=== PATIENT | female | born 1945 | race African-American/Black ===

== ENCOUNTER 2021-09-14 10:57 | Outpatient (REF) | payer MEDICARE, OTHER, SELFPAY ==
[2021-09-14 12:21] LABS: MANUAL DIFF FLAG NO
[2021-09-14 13:05] LABS: Basophils Percent Auto 0.8 % (0-2); Eosinophils Absolute Auto 0.2 X10*3/uL (0.0-0.4); Hematocrit 37.9 % (37.0-47.0); Hemoglobin 12.1 g/dl (12.0-16.0); Imm Gran Abs Auto 0.02 X10*3/uL (0.00-0.03); Imm Gran Pct Auto 0.4 % (0.0-0.4); Lymphocytes Absolute Auto 1.3 X10*3/uL (1.2-4.9); Lymphocytes Percent Auto 24.6 % (20-40); Mean Corpuscular HGB Conc 31.9 g/dl (31.0-35.0); Mean Platelet Volume 11.1 fL (9.4-12.3); Monocytes Absolute Auto 0.5 X10*3/uL (0.1-1.2); Monocytes Percent Auto 9.8 % (2-11); Neutrophils Absolute Auto 3.1 x10*3/uL (2.0-8.3); Neutrophils Percent Auto 61.4 % (45-73); Platelet Count 246 X10*3/uL (160-400); Red Blood Count 4.03 X10*6/uL (4.20-5.50); Red Cell Distribution Width 12.9 % (11.0-16.0); White Blood Count 5.1 X10*3/uL (4.8-10.8)
[2021-09-14 13:37] LABS: Alanine Aminotransferase 20 U/L (0-31); Aspartate Amino Transferase 25 U/L (5-31); Estimated Glomerular Filt Rate 27
[2021-09-14 13:56] LABS: Erythrocyte Sedimentation Rate 20 MM/HR (0-20)
== END 2021-09-14 10:58 | disposition home or self-care (01) ==
LOC: HO.LAB 10:57
PROVIDERS: Visit Provider Internal Medicine Rheumatology
DX: M19.011 Primary osteoarthritis, right shoulder (principal); M19.012 Primary osteoarthritis, left shoulder; M05.9 Rheumatoid arthritis with rheumatoid factor, unspecified; M47.816 Spondylosis without myelopathy or radiculopathy, lumbar region; Z79.899 Other long term (current) drug therapy; Z90.5 Acquired absence of kidney
CPT/HCPCS: 36415; 82565; 84450; 84460; 85025; 85652; 86140; 99212

== ENCOUNTER 2021-12-23 09:15 | Outpatient (REF) | payer MEDICARE, OTHER, SELFPAY ==
[2021-12-23 11:23] LABS: MANUAL DIFF FLAG NO
[2021-12-23 11:37] LABS: Basophils Percent Auto 0.6 % (0-2); Eosinophils Absolute Auto 0.2 X10*3/uL (0.0-0.4); Eosinophils Percent Auto 4.7 % (0-4); Hematocrit 36.5 % (37.0-47.0); Hemoglobin 11.5 g/dl (12.0-16.0); Imm Gran Abs Auto 0.01 X10*3/uL (0.00-0.03); Imm Gran Pct Auto 0.3 % (0.0-0.4); Lymphocytes Percent Auto 26.5 % (20-40); Mean Corpuscular HGB Conc 31.5 g/dl (31.0-35.0); Mean Corpuscular Hemoglobin 29.9 pg (27.0-33.0); Mean Corpuscular Volume 95.1 fL (80.0-98.0); Mean Platelet Volume 11.3 fL (9.4-12.3); Monocytes Absolute Auto 0.3 X10*3/uL (0.1-1.2); Monocytes Percent Auto 8.8 % (2-11); Neutrophils Absolute Auto 2.1 x10*3/uL (2.0-8.3); Neutrophils Percent Auto 59.1 % (45-73); Platelet Count 218 X10*3/uL (160-400); Red Blood Count 3.84 X10*6/uL (4.20-5.50); Red Cell Distribution Width 13.4 % (11.0-16.0); White Blood Count 3.6 X10*3/uL (4.8-10.8)
[2021-12-23 12:44] LABS: Erythrocyte Sedimentation Rate 25 MM/HR (0-20)
[2021-12-23 14:01] LABS: Alanine Aminotransferase 23 U/L (0-31); Aspartate Amino Transferase 25 U/L (5-31); Estimated Glomerular Filt Rate 26
[2021-12-23 14:32] LABS: C Reactive Protein 0.08 mg/dL (< or = 0.50)
== END 2021-12-23 09:16 | disposition home or self-care (01) ==
LOC: HO.HMGCLDS 09:15
PROVIDERS: Visit Provider Internal Medicine Rheumatology
DX: M05.9 Rheumatoid arthritis with rheumatoid factor, unspecified (principal); Z79.899 Other long term (current) drug therapy
CPT/HCPCS: 36415; 82565; 84450; 84460; 85025; 85652; 86140

== ENCOUNTER → 2022-01-14 10:01 | Outpatient (BNVA) | payer MEDICARE, OTHER, SELFPAY | PROVIDERS: Visit Provider Internal Medicine Rheumatology | DX: M05.9 Rheumatoid arthritis with rheumatoid factor, unspecified (principal); M19.011 Primary osteoarthritis, right shoulder; M19.012 Primary osteoarthritis, left shoulder; Z79.899 Other long term (current) drug therapy | CPT/HCPCS: 99212 ==

== ENCOUNTER → 2022-05-26 10:14 | Outpatient (BNVA) | payer MEDICARE, OTHER, SELFPAY | PROVIDERS: Visit Provider Internal Medicine Rheumatology | DX: M19.011 Primary osteoarthritis, right shoulder (principal); M19.012 Primary osteoarthritis, left shoulder; M47.816 Spondylosis without myelopathy or radiculopathy, lumbar region; M05.9 Rheumatoid arthritis with rheumatoid factor, unspecified; N18.30 Chronic kidney disease, stage 3 unspecified; Z79.899 Other long term (current) drug therapy | CPT/HCPCS: 99212 ==

== ENCOUNTER → 2022-06-14 08:53 | Outpatient (BNVA) | payer MEDICARE, OTHER, SELFPAY | PROVIDERS: Visit Provider Orthopaedic Surgery | DX: M19.011 Primary osteoarthritis, right shoulder (principal); M19.012 Primary osteoarthritis, left shoulder; M54.12 Radiculopathy, cervical region; M05.9 Rheumatoid arthritis with rheumatoid factor, unspecified; N18.30 Chronic kidney disease, stage 3 unspecified; Z79.631 Long term (current) use of antimetabolite agent | CPT/HCPCS: 99202 ==

== ENCOUNTER 2022-06-18 07:08 | Outpatient (REF) | payer MEDICARE, OTHER, SELFPAY ==
--- NOTE | ~2022-06-18 | CT_ITS ---
EXAMINATION: CT SHOULDER WITHOUT CONTRAST, RIGHT CLINICAL INFORMATION: Osteoarthritis, presurgical planning COMPARISON: None available. TECHNIQUE: A noncontrast CT of the right shoulder is performed with sagittal and coronal reformats This CT examination was performed using dose optimization techniques as appropriate, variously including the following: *Automated exposure control *Adjustment of mA and/or kV according to patient size (this includes techniques or standardized protocols for targeted exams where dose is matched to indication/reason for exam; i.e. extremities or head) *Use of iterative reconstruction technique DLP: 227 mGy-cm FINDINGS: Severe glenohumeral osteoarthritis with areas of sclerosis, degenerative cysts, and large marginal osteophytes. There is a chronic ossified body in the superior aspect of the joint. The humeral head is superiorly subluxed and nearly abuts the undersurface of the acromion suggesting at least partial tearing of the supraspinatus tendon. There is mild supraspinatus muscle atrophy. There is remodeling and flattening of the glenoid. Glenoid version is neutral. The glenoid vault depth is approximately [address]/CT shoulder RT wo IV con IMPRESSION: Severe glenohumeral osteoarthritis.
== END 2022-06-18 07:09 | disposition home or self-care (01) ==
LOC: HO.CT 07:08
PROVIDERS: Visit Provider Orthopaedic Surgery
DX: M19.011 Primary osteoarthritis, right shoulder (principal)
CPT/HCPCS: 73200

== ENCOUNTER 2022-07-07 12:35 | Outpatient (REF) | payer MEDICARE, OTHER, SELFPAY ==
--- NOTE | ~2022-07-07 | MR_ITS ---
EXAMINATION: MR SHOULDER WITHOUT CONTRAST, RIGHT CLINICAL INFORMATION: Right shoulder pain. Presurgical planning. COMPARISON: CT 06/18/2022 TECHNIQUE: MRI of the shoulder without contrast was performed on a high-field scanner. FINDINGS: ROTATOR CUFF: Chronic near complete tearing of the distal supraspinatus and infraspinatus tendons which are markedly attenuated. Mild rotator cuff muscle atrophy. BICEPS: The intra-articular portion of the biceps tendon is not visualized and presumably completely torn. CORACOACROMIAL ARCH: The undersurface of the acromion is anteriorly hooked with no subacromial spur. Moderate hypertrophic acromioclavicular osteoarthritis. LABRUM/CAPSULE: Diffuse degenerative tearing of the glenoid labrum which is essentially absent. GLENOHUMERAL JOINT/MARROW: Severe glenohumeral osteoarthritis with denudation of the articular cartilage, surface remodeling, multiple small cysts and prominent marginal osteophytes. There is a joint effusion with synovitis/debris. MR/MR shoulder RT wo con IMPRESSION: Severe glenohumeral osteoarthritis. Chronic near complete tearing of the supraspinatus and infraspinatus tendons. Mild muscle atrophy. Moderate hypertrophic acromioclavicular osteoarthritis. Completely torn proximal biceps tendon.
== END 2022-07-07 12:36 | disposition home or self-care (01) ==
LOC: HO.MRI 12:35
PROVIDERS: Visit Provider Orthopaedic Surgery
DX: M19.011 Primary osteoarthritis, right shoulder (principal)
CPT/HCPCS: 73221

== ENCOUNTER → 2022-07-12 10:40 | Outpatient (BNVA) | payer MEDICARE, OTHER, SELFPAY | PROVIDERS: Visit Provider Nurse Practitioner Family | DX: M47.812 Spondylosis without myelopathy or radiculopathy, cervical region (principal); M54.12 Radiculopathy, cervical region; M54.6 Pain in thoracic spine; M19.011 Primary osteoarthritis, right shoulder; M19.012 Primary osteoarthritis, left shoulder; M05.9 Rheumatoid arthritis with rheumatoid factor, unspecified; M25.511 Pain in right shoulder; G89.29 Other chronic pain | CPT/HCPCS: 72052; 72072; 99202 ==

== ENCOUNTER 2022-07-12 11:44 | Outpatient (REF) | payer MEDICARE, OTHER, SELFPAY ==
--- NOTE | ~2022-07-12 | XR_ITS ---
EXAMINATION: XR CERVICAL SPINE CLINICAL INFORMATION: Spondylosis COMPARISON: None available. TECHNIQUE: 5 views of the cervical spine including bilateral oblique views views, were obtained. FINDINGS: Bone alignment is normal. No fracture or dislocation. Multilevel degenerative spondylosis and degenerative disc disease from C4-C5 to C6-C7. Mild right-sided neuroforaminal narrowing at C6-C7 from bony osteophyte. Left-sided neuroforaminal narrowing at C3-C4 C4-C5 C5-C6 and C6-C7 from bony osteophyte. Normal prevertebral soft tissues. XR/XR cervical spine min 6V IMPRESSION: Degenerative changes
--- NOTE | ~2022-07-12 | XR_ITS ---
EXAMINATION: XR THORACIC SPINE CLINICAL INFORMATION: Pain COMPARISON: None available. TECHNIQUE: 3 views of the thoracic spine were obtained. FINDINGS: There is no fracture or bone destruction seen and the vertebral alignment is normal. There is no disc space narrowing. There is no abnormality of the paraspinal soft tissues. XR/XR thoracic spine 3V IMPRESSION: Unremarkable examination.
== END 2022-07-12 11:45 | disposition home or self-care (01) ==
LOC: HO.XRAY 11:44
PROVIDERS: Visit Provider Nurse Practitioner Family
DX: Z13.89 Encounter for screening for other disorder (principal)
CPT/HCPCS: 72052; 72072

== ENCOUNTER → 2022-08-16 09:08 | Outpatient (BNVA) | payer MEDICARE, OTHER, SELFPAY | PROVIDERS: Visit Provider Orthopaedic Surgery | DX: M47.22 Other spondylosis with radiculopathy, cervical region (principal); M54.6 Pain in thoracic spine; G89.29 Other chronic pain; M25.511 Pain in right shoulder; G56.00 Carpal tunnel syndrome, unspecified upper limb; R20.0 Anesthesia of skin; R20.2 Paresthesia of skin; M05.9 Rheumatoid arthritis with rheumatoid factor, unspecified; M12.811 Other specific arthropathies, not elsewhere classified, right shoulder; N18.30 Chronic kidney disease, stage 3 unspecified; Z79.899 Other long term (current) drug therapy | CPT/HCPCS: 99212 ==

== ENCOUNTER → 2022-09-20 09:28 | Outpatient (BNVA) | payer MEDICARE, OTHER, SELFPAY | PROVIDERS: Visit Provider Internal Medicine Rheumatology | DX: M05.9 Rheumatoid arthritis with rheumatoid factor, unspecified (principal); M19.011 Primary osteoarthritis, right shoulder; M19.012 Primary osteoarthritis, left shoulder; N18.30 Chronic kidney disease, stage 3 unspecified; Z79.899 Other long term (current) drug therapy | CPT/HCPCS: 99212 ==

== ENCOUNTER 2022-09-30 09:53 | Outpatient (REF) | payer MEDICARE, OTHER, SELFPAY ==
--- NOTE | 2022-09-30 09:56 | EMG_ITS ---
FINDINGS: Right median and ulnar motor and sensory studies were performed. Right radial sensory studies were performed. Median and lateral antecubital brachial sensory studies were performed and paraspinal muscles were tested with a needle. IMPRESSION: Mild right median neuropathy across carpal tunnel affecting sensory component. Otherwise, no significant abnormality was noted. MD VITOR Pinon/ATILIO / [id number]
== END 2022-09-30 09:54 | disposition home or self-care (01) ==
LOC: HO.NEURO 09:53
PROVIDERS: Visit Provider Nurse Practitioner Family
DX: R20.0 Anesthesia of skin (principal); R20.2 Paresthesia of skin; M54.12 Radiculopathy, cervical region
CPT/HCPCS: 95886; 95910

== ENCOUNTER 2022-11-24 09:21 | Outpatient (REF) | payer MEDICARE, OTHER, SELFPAY ==
--- NOTE | ~2022-11-24 | MR_ITS ---
EXAMINATION: MR CERVICAL SPINE WITHOUT CONTRAST CLINICAL INFORMATION: Neck pain with right upper extremity radiculopathy. COMPARISON: X-ray cervical spine dated 07/12/2022. TECHNIQUE: Multiplanar, multisequential imaging of the cervical spine was performed without contrast. FINDINGS: VERTEBRAL BODIES AND PARASPINAL SOFT TISSUES: There are isph-hs-vnsihpal edematous endplate changes with moderate disc space narrowing at the C7-T1 level. No compression fractures are seen. There is a reversal of the normal cervical lordosis and rightward curvature of the mid cervical spine. Severe loss of disc height with mixed chronic and mild edematous endplate changes evident at the C4-C5 level. There is wrndlxff-de-lnyjll disc space narrowing as well at the C5-C6 and C6-C7 levels with mild posterior subluxations. The paraspinal soft tissues are unremarkable. The vertebral artery flow voids are maintained. The imaged lung apices are grossly clear. There are fatty and nodular changes partially visualized in the parotid glands bilaterally. CERVICOMEDULLARY JUNCTION AND VISUALIZED POSTERIOR FOSSA: The craniovertebral junction and imaged portions of the brain appear normal. No cord signal abnormality or syrinx is seen. SPINAL LEVELS: C2-C3: Small central disc protrusion. No central canal stenosis or foraminal narrowing. C3-C4: Central disc protrusion impresses upon the ventral cord without intramedullary signal change. No central canal stenosis. Exuberant left-sided facet arthropathy and moderate left foraminal narrowing. C4-C5: Right paracentral disc protrusion superimposed upon a broad-based disc-osteophyte complex with facet arthropathy results in sosl-js-jtyzbrde central canal stenosis and mild ventral cord distortion. Severe left foraminal narrowing. C5-C6: Left paracentral disc protrusion moderately distorts the left ventrolateral aspect of the cord without intramedullary signal change. Underlying disc-osteophyte complex present with significant left foraminal encroachment. C6-C7: Retrosubluxation and disc-osteophyte complex impress upon the ventral thecal sac. No significant central canal stenosis. Severe left foraminal narrowing and lwbm-yo-smkoehdh right foraminal encroachment. C7-T1: Central disc protrusion and disc-osteophyte complex with thickening of the ligamentum flavum and facet arthropathy result in moderate central canal stenosis and severe bilateral foraminal narrowing with suspected impingement of both C8 nerve roots. MR/MR cervical spine wo con IMPRESSION: 1. Extensive multilevel cervical spondylosis and reversal of the normal cervical lordosis with moderate central canal stenosis and severe left foraminal narrowing at the C4-C5 level. 2. Central disc protrusion at the C3-C4 level with mild impression upon the ventral cord. Moderate left foraminal narrowing and exuberant left-sided facet arthropathy. 3. Left paracentral disc protrusion moderately distorting the left ventrolateral aspect of the cord at the C5-C6 level with severe left foraminal narrowing. 4. Severe left foraminal narrowing at the C6-C7 level with a broad-based disc-osteophyte complex. 5. Central disc protrusion at the C7-T1 level with hypertrophic facet arthropathy resulting in moderate central canal stenosis and severe bilateral foraminal narrowing with suspected impingement of both C8 nerve roots. Mild endplate edema as well.
== END 2022-11-24 09:22 | disposition home or self-care (01) ==
LOC: HO.MRI 09:21
PROVIDERS: Visit Provider Nurse Practitioner Family
DX: G89.29 Other chronic pain (principal); M47.812 Spondylosis without myelopathy or radiculopathy, cervical region; M54.12 Radiculopathy, cervical region; M25.511 Pain in right shoulder
CPT/HCPCS: 72141

== ENCOUNTER 2023-01-10 13:21 | Outpatient (AMB) | payer MEDICARE, OTHER, SELFPAY ==
[2023-01-10 13:22] VITALS: BMI 28.0
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
== END 2023-01-10 13:35 | disposition home or self-care (01) ==
LOC: HO.PMC 13:21
PROVIDERS: Visit Provider Nurse Practitioner Family
DX: G56.00 Carpal tunnel syndrome, unspecified upper limb (principal); R20.0 Anesthesia of skin; R20.2 Paresthesia of skin; M48.02 Spinal stenosis, cervical region; M47.812 Spondylosis without myelopathy or radiculopathy, cervical region; M54.12 Radiculopathy, cervical region
CPT/HCPCS: 99442

== ENCOUNTER → 2023-01-10 13:21 | Outpatient (BNVA) | payer MEDICARE, OTHER, SELFPAY | PROVIDERS: Visit Provider Nurse Practitioner Family ==

== ENCOUNTER 2023-01-19 10:52 | Outpatient (AMB) | payer MEDICARE, OTHER, SELFPAY ==
--- NOTE | 2023-01-19 10:58 | A.OFFVIS_ITS ---
Intake Vital Signs 01/19/23 11:08 Height 5 ft 3 in Weight 156 lb 8.451 oz BMI 27.7 BP 130/70 Blood Pressure Location Lt brachial Position Sitting Pulse 73 Pulse Source Pulse Oximeter Temp 97.3 F Temp Source Skin Pulse Oximetry (%) 99 Oxygen Delivery Method Room Air Intake Visit Reasons: Rheumatoid Arthritis Intake Note: Patient presents today for RA follow up. c/o right hand numbness. States she has been diagnosed with CTS. Cervical CT scan completed. Will be seeing specialist for the neck to consider minimally invasive surgery. 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 She remains on methotrexate 7.5 mg weekly and folic acid 1 mg daily. In general the joints are doing okay but she does have chronic pain in the right shoulder, occasional pain in the neck, and numbness in the right hand. Further workup has included MRI scan of the neck and nerve conduction studies. The nerve conduction studies did show some mild right carpal tunnel syndrome. Further evaluation of her neck problem is apparently planned. She notes more paresthesias in the hand night. The right shoulder, a chronic problem, continues to bother her with any movement. She did see surgery about this but she apparently has rather severe rotator cuff attrition and the surgeon felt that surgery would not be all that effective at improving her function. She has concerns about her kidney function which of course declined after nephrectomy. 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 Osteoarthritis of glenohumeral joints, bilateral CKD (chronic kidney disease) stage 3, GFR 30-59 ml/min Hypertension Osteoarthritis of lumbar spine Seropositive rheumatoid arthritis Surgical History History of nephrectomy, right Social History Household Members Other:: lives alone Housing: House Are you a primary caretaker grounds to a significant other at home: No Do you presently have visiting nurse or other home services: No 75 years or older and lives alone: No Alcohol intake: current Alcohol intake frequency: a few times a week Alcohol type: wine Patient Tobacco Use Status: Never used Tobacco e-Cigarette/Vaping Use: Never Used Current occupational status: retired Review of Systems Const Details: Negative for appetite change, weight change, fever, chills, malaise and fatigue Eyes Details: Some ocular dryness. Negative for vision change,headaches and dizziness ENT Details: Occasional oral dryness. Negative for hearing change, tinnitus, oral ulcer, nose bleeds. Card Details: Negative chest pain, edema and syncope Resp Details: Negative for SOB, cough and wheezing GI Details: Negative indigestion/heartburn, nausea, abdominal pain, bowel changes, diarrhea, constipation and bloody stool. Details: Negative for dysuria, hematuria, nocturia, decreased force/flow and genital discharge Neuro Details: Negative for epilepsy, palsy, stroke, changes in speech, tingling and weakness Endo Details: Negative for polyuria and polydypsia Rigo/Lymph Details: Negative for excessive bruising or bleeding. Physical Exam Vital Signs: Last Vital Signs Temp 97.3 F 01/19/23 11:08 Pulse 73 01/19/23 11:08 BP 130/70 01/19/23 11:08 Pulse Ox 99 01/19/23 11:08 Oxygen Delivery Method Room Air 01/19/23 11:08 BMI result Body Mass Index 27.7 APPEARANCE: Patient in no acute distress EYES no redness, pupils equal and reactive to light, eyelids normal Cervical Spine:.? Lateral flexion limited at 10 degrees and rotation at 50 degrees with slight discomfort.? No tenderness. Thoracic Spine:.? No scoliosis.? No tenderness on palpation. Lumbar Spine:.? Alignment normal.? Full range of motion without pain, no tenderness. Chest Wall:.? No tenderness, swelling, increased warmth or erythema. Hands:? Right:? Slight thickening at the 2nd and 3rd MCP joints but no tenderness.? No other areas of tenderness or swelling.? No thenar atrophy or sensory loss.? Left:? Slight thickening without tenderness at the 2nd through 4th MCP joints.? No other swelling or tenderness elsewhere.? No thenar atrophy or sensory loss. Wrists:.? Normal pain-free range of motion without tenderness, swelling, increased warmth or erythema. Elbows:? Right:? She lacks about 10 degrees of full extension with slight discomfort at the extremes of motion but no swelling or tenderness in the elbow.? Left:? Normal pain-free range of motion without tenderness, swelling, increased warmth or erythema. Shoulders:? Right:? Active abduction is limited at about 80? degrees, passively I can push it up to about 120 degrees but with mild pain.? There is abductor weakness.? Rotation is also limited to about 10 degrees internally or externally.? No axillary or supraclavicular adenopathy; no soft tissue swelling.? Some deltoid atrophy.? Left:? She has mild discomfort with extremes of normal range of motion. There is some minimal anterior tenderness but no swelling or abductor weakness.? No axillary or supraclavicular adenopathy.? Hips:.? Full range of motion without pain. Hip bursa:.? No tenderness. Knees:.?? Normal pain-free range of motion without tenderness, swelling, increased warmth or erythema.? There is no effusion or crepitation Ankles:.? Left:? Some valgus deformity and pain with extremes of range of motion.? Mild medial tenderness, more prominent on the medial side without significant swelling, redness or warmth.? Right:? pain-free range of motion without tenderness, swelling, increased warmth or erythema. Feet:? Right:? She has a callus underneath the IP joint of the toe on the medial aspect.? This is somewhat tender so there may be a corn present as well.? There is some minimal tenderness at the 1st MTP but I do not think any swelling.? She has a soft tissue lump near the 1st MTP on the sole of foot, this is not tender. Left:? Normal pain-free range of motion with some slight tenderness at the 1st MTP and maybe some minimal bony enlargement.? No other areas of tenderness or swelling. ? Results Reviewed Results Reviewed: January 12 lab work from [facility]: White count 3.4, hemoglobin 11.1, ESR 24, creatinine 1.97, CRP 0.7, ALT 20, AST 22 Assessment & Plan Assessment & Plan (1) Osteoarthritis of glenohumeral joints, bilateral: Comment: R>L, history of old injury on the right Code(s): M19.011 - Primary osteoarthritis, right shoulder; M19.012 - Primary osteoarthritis, left shoulder (2) Carpal tunnel syndrome: Code(s): G56.00 - Carpal tunnel syndrome, unspecified upper limb (3) Cervical spinal stenosis: Code(s): M48.02 - Spinal stenosis, cervical region (4) Seropositive rheumatoid arthritis: Comment: Dx from the past (in her 30's); varying activity, mostly low grade, no DMARD's ever. Neg GAMA but pos CCP Ab and RF Methotrexate started 03/21 Code(s): M05.9 - Rheumatoid arthritis with rheumatoid factor, unspecified Plan Rheumatoid arthritis with good control of synovitis with current treatment. She has significant CKD so we have reduced the dose of methotrexate to 7.5 mg weekly. The white count is somewhat low but stable. I think she could continue with the current dose of methotrexate. She has end-stage glenohumeral osteoarthritis in the right shoulder. The pain in the shoulder is not always as prominent as currently but I would tend to agree that surgery may improve the pain but not necessarily her functioning given the significant rotator cuff damage noted on MRI. The right hand numbness could be from carpal tunnel syndrome but I think it is more likely from cervical issues. I did issue her a right wrist brace to wear nightly to see if that might ameliorate carpal tunnel symptoms. She will follow-up with pain management if need be on the further management of the cervical osteoarthritis. Lab work would be due again in 2 months and she will be away in [place] in April and May so will see us back in June. Orders: Orders Complete Blood Count Auto Diff Today M05.9 - Rheumatoid arthritis with rheumatoid factor, unspecified C Reactive Protein Today M05.9 - Rheumatoid arthritis with rheumatoid factor, unspecified Erythrocyte Sedimentation Rate 1 Month M05.9 - Rheumatoid arthritis with rheumatoid factor, unspecified Erythrocyte Sedimentation Rate Today M05.9 - Rheumatoid arthritis with rheumatoid factor, unspecified C Reactive Protein 1 Month M05.9 - Rheumatoid arthritis with rheumatoid factor, unspecified Comprehensive Met. Panel Today M05.9 - Rheumatoid arthritis with rheumatoid factor, unspecified Medications: New arm brace (Wrist Brace) Use as directed at night 1 ea 0RF G56.00 - Carpal tunnel syndrome, unspecified upper limb Coding Level of Care Code Est Pt Level 3 (27012) Diagnoses Osteoarthritis of glenohumeral joints, bilateral M19.011; M19.012 Carpal tunnel syndrome G56.00 Cervical spinal stenosis M48.02 Seropositive rheumatoid arthritis M05.9
[2023-01-19 11:08] VITALS: BP 130/70; PULSE 73; TEMP 36.3; O2SAT 99; BMI 27.7
== END 2023-01-19 11:44 | disposition home or self-care (01) ==
PROVIDERS: Visit Provider Internal Medicine Rheumatology
DX: M19.011 Primary osteoarthritis, right shoulder (principal); M19.012 Primary osteoarthritis, left shoulder; G56.00 Carpal tunnel syndrome, unspecified upper limb; M48.02 Spinal stenosis, cervical region; M05.79 Rheumatoid arthritis with rheumatoid factor of multiple sites without organ or systems involvement
CPT/HCPCS: 99214

== ENCOUNTER → 2023-01-19 10:52 | Outpatient (BNVA) | payer MEDICARE, OTHER, SELFPAY | PROVIDERS: Visit Provider Internal Medicine Rheumatology | DX: M05.9 Rheumatoid arthritis with rheumatoid factor, unspecified (principal); G56.01 Carpal tunnel syndrome, right upper limb; M19.012 Primary osteoarthritis, left shoulder; M19.011 Primary osteoarthritis, right shoulder; M48.02 Spinal stenosis, cervical region; Z79.631 Long term (current) use of antimetabolite agent | CPT/HCPCS: 99212 ==

== ENCOUNTER 2023-02-09 12:49 | Outpatient (AMB) | payer MEDICARE, OTHER, SELFPAY ==
--- NOTE | 2023-02-09 12:59 | A.OFFVIS_ITS ---
Intake Intake Visit Reasons: new prob- Carpal tunnel syndrome right Intake Note: Minna is a 77 year old right hand domiant female who presents today with complaints of right hand pain, numbness and tingling. Patient reports that her sympmtoms have been present for quite some times now. Her numbness is presenet in the small and ring finger, she also reports locking and catching of the thumb. She explains that she has RTC problems and has been wearing a sling occasionally. Allergies erythromycin base Allergy (Intermediate, Verified 01/19/23 11:09) Hives hydrocodone Allergy (Intermediate, Verified 01/19/23 11:09) shaky, rapid heart beat oxycodone Allergy (Intermediate, Verified 01/19/23 11:09) shaky,rapid heartbeat piroxicam [From Feldene] Allergy (Intermediate, Verified 01/19/23 11:09) Shortness of Breath Sulfa (Sulfonamide Antibiotics) Allergy (Intermediate, Verified 01/19/23 11:09) hives HPI new prob- Carpal tunnel syndrome right HPI Details 77-year-old right hand dominant female damari bravo presents to the office today for evaluation of right hand. She states she has pain as well as numbness and tingling in her small and ring finger. She also c/o catching and locking of her thumb. 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 Osteoarthritis of glenohumeral joints, bilateral CKD (chronic kidney disease) stage 3, GFR 30-59 ml/min Hypertension Osteoarthritis of lumbar spine Seropositive rheumatoid arthritis Surgical History History of nephrectomy, right Social History Household Members Other:: lives alone Housing: House Are you a primary wound care coordinator to a significant other at home: No Do you presently have visiting nurse or other home services: No 75 years or older and lives alone: No Alcohol intake: current Alcohol intake frequency: a few times a week Alcohol type: wine Patient Tobacco Use Status: Never used Tobacco e-Cigarette/Vaping Use: Never Used Current occupational status: retired Review of Systems Const All systems reviewed & are unremarkable except as noted in HPI and below Physical Exam Const General: cooperative and no acute distress Orientation/consciousness: patient oriented x3 Resp Effort & Inspection: normal respiratory effort and able to speak in complete sentences Cardio Peripheral pulses: Peripheral pulses 2+ throughout Neuro General: patient oriented x3 Extrem Other: Right wrist: Normal to inspection. Tenderness over the carpal canal. Numbness and tingling over the median nerve distribution of the right hand. Able to make a full fist and fully extend all fingers. Positive Tinel's. Right thumb : Tender nodule along the A1 meme with active catching and locking. NVI. Results Reviewed Results Reviewed: EMG/NCS 09/2022 IMPRESSION: Mild right median neuropathy across carpal tunnel affecting sensory component. Otherwise, no significant abnormality was noted. Assessment & Plan Assessment & Plan (1) Carpal tunnel syndrome of right wrist: Code(s): G56.01 - Carpal tunnel syndrome, right upper limb (2) Trigger thumb, right thumb: Code(s): M65.311 - Trigger thumb, right thumb Plan We discussed findings on her nerve conduction study however she does not feel it is limiting her daily activities and her symptoms are not to a point where she wants to pursue any type of surgical intervention. I did offer her a Velcro wrist splint for her right hand which she would like to use. If symptoms become constant or are limiting her activities, she will contact the office otherwise follow-up as needed. Patient Instructions: Scribed for Chico Cruz PA-C, by Josh Thompson director of medical education, on 02/09/2023 at 1:15 PM EST. Chico Hall PA-C, have personally reviewed and agree with the information entered by the scribe. Coding Level of Care Code New Pt Level 3 (62131) Diagnoses Carpal tunnel syndrome of right wrist G56.01 Trigger thumb, right thumb M65.311
== END 2023-02-09 13:34 | disposition home or self-care (01) ==
PROVIDERS: Visit Provider Physician Assistant
DX: G56.01 Carpal tunnel syndrome, right upper limb (principal); M65.311 Trigger thumb, right thumb
CPT/HCPCS: 99213

== ENCOUNTER → 2023-02-09 12:49 | Outpatient (BNVA) | payer MEDICARE, OTHER, SELFPAY | PROVIDERS: Visit Provider Physician Assistant | DX: G56.01 Carpal tunnel syndrome, right upper limb (principal); M65.311 Trigger thumb, right thumb | CPT/HCPCS: 99212 ==

== ENCOUNTER 2023-02-11 09:43 | Outpatient (AMB) | payer MEDICARE, OTHER, SELFPAY ==
--- NOTE | 2023-02-11 10:20 | A.SPINEOV_ITS ---
Intake Intake Visit Reasons: radiculopathy Intake Note: Ms. Clifford is here today c/o low back pain. MRI done @ [facility] [place]. Postal Mail Carrier Required: No Allergies erythromycin base Allergy (Intermediate, Verified 01/19/23 11:09) Hives hydrocodone Allergy (Intermediate, Verified 01/19/23 11:09) shaky, rapid heart beat oxycodone Allergy (Intermediate, Verified 01/19/23 11:09) shaky,rapid heartbeat piroxicam [From Feldene] Allergy (Intermediate, Verified 01/19/23 11:09) Shortness of Breath Sulfa (Sulfonamide Antibiotics) Allergy (Intermediate, Verified 01/19/23 11:09) hives Assessment & Plan Assessment & Plan (1) Cervical myelopathy: Code(s): G95.9 - Disease of spinal cord, unspecified Plan Dear Alison, Thank you for referring Mrs Clifford to our office today. She is a very nice 77-year-old woman with rheumatoid arthritis who presents to the office today for evaluation of her cervical spine. She tells me that about a year ago she had a severe radiculopathy down the right arm that was so intense that she was unable to sleep or do anything. Thankfully it went away but she has had a residual feeling of numbness and tingling down her right arm which can go into her 4th and 5th digits at times. Occasionally she will get a little bit of tingling in her left index finger on the left. She has a proximal arm weakness which is related to a shoulder injury and rotator cuff tears but does not report any specific weakness of her arms or gait imbalance. She does have some subtle fine motor issues when she is using her cellphone. Occasionally has some neck pain and will take Tylenol if needed. She had an EMG done she was told she does not have any significant signs of carpal tunnel. She had an MRI showing multiple degenerative disc abnormalities in her cervical spine with cervical stenosis and was sent today for evaluation. At this time she does not have any significant pain issues to her report. PMH: She had a history of kidney cancer and nephrectomy, her residual function of her 1 remaining kidney she says is about 30%, history of rheumatoid arthritis, hypertension, recently diagnosed with high cholesterol, hysterectomy, appendectomy, remote history of vertebral artery stenosis with possible small TIA related to extension of her neck. She has been on Plavix for this for a long time. Denies any heart attacks, or heart disease. No lung problems. Social hx: She does not smoke Medications: Methotrexate, Plavix, diclofenac gel, Tylenol, baby aspirin, vitamin D3, amlodipine, atorvastatin, folic acid Allergies: Azithromycin, Dilaudid, erythromycin, Feldene, sulfa, lactose, hydrocodone, oxycodone and certain metals Physical exam: She is awake alert oriented here with her sister today. She has good strength of bilateral upper and lower extremities. I could not test the right shoulder because she has a chronic rotator cuff tear there. Lower extremi ty strength is full. Gait is normal and fluid with normal gait and stride length. She has diffuse hyperreflexia with clonus in her ankles. Imaging review: Cervical MRI done at [facility] shows diffuse degenerative disc disease, at C4-5 on the right there is a disc bulge causing moderate central canal stenosis. On the left at C5-6 there is a posterior disc herniation causing moderate to severe spinal cord compression on the left. I do not see any cord signal change there. She has mild degenerative disc disease at C6-7 and has bilateral foraminal stenosis at C7-T1 Impression: Very nice 77-year-old woman with history of rheumatoid arthritis presents with what sounds like subtle signs of early myelopathy including some fine motor issues when using her phone, numbness of her right arm and hyperreflexia on her exam. We talked about the fact that myelopathic patients are often best treated before their symptoms become severe. Typically that would mean surgery to decompress the affected areas. Usually this would be anterior cervical diskectomy and fusion. The patient has fairly significant compression at C5-6 but also moderate stenosis at C4-5. I will need to review her imaging with Dr. Alas to see if he would thinks both of these would be surgical or just the C5-6 level. At this point she is not having a significant functional disability so there is no urgency to sun her into his surgery. I briefly discussed the nature of the surgery, progressive cervical myelopathic symptoms to be worried about should she develop them. I will bring her back in 1 month to sit down with Dr. Alas and he can evaluate with her as well. Thank you for allowing us to care for your patient. The total time spent with this visit with this patient was 45 minutes reviewing history, physical exam, cervical imaging review, and implementation of treatment plan or further diagnostic testing Thanh Alas MD,PhD [facility] Coding Level of Care Code New Pt Level 4 (06866) Diagnoses Cervical myelopathy G95.9
== END 2023-02-11 11:00 | disposition home or self-care (01) ==
PROVIDERS: Referring Provider Nurse Practitioner Family; Visit Provider Physician Assistant
DX: G95.9 Disease of spinal cord, unspecified (principal)
CPT/HCPCS: 99204

== ENCOUNTER → 2023-02-11 09:43 | Outpatient (BNVA) | payer MEDICARE, OTHER, SELFPAY | PROVIDERS: Visit Provider Physician Assistant | DX: G95.9 Disease of spinal cord, unspecified (principal) | CPT/HCPCS: 99202 ==

== ENCOUNTER 2023-03-15 13:25 | Outpatient (AMB) | payer MEDICARE, OTHER, SELFPAY ==
--- NOTE | 2023-03-15 13:54 | A.SPINEOV_ITS ---
Intake Intake Visit Reasons: meet Dr. Alas Intake Note: Ms. Clifford is here today to discuss surgical options with Dr. Alas. 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 Allergies erythromycin base Allergy (Intermediate, Verified 01/19/23 11:09) Hives hydrocodone Allergy (Intermediate, Verified 01/19/23 11:09) shaky, rapid heart beat oxycodone Allergy (Intermediate, Verified 01/19/23 11:09) shaky,rapid heartbeat piroxicam [From Feldene] Allergy (Intermediate, Verified 01/19/23 11:09) Shortness of Breath Sulfa (Sulfonamide Antibiotics) Allergy (Intermediate, Verified 01/19/23 11:09) hives Assessment & Plan Assessment & Plan (1) Cervical spondylosis: Code(s): M47.812 - Spondylosis without myelopathy or radiculopathy, cervical region Plan Dear colleague, On 03/15/2023, I saw for follow-up Minna Clifford. She is a very pleasant 77-year-old female I came to see us after spinal cord compression was seen on MRI of the cervical spine. She denies dexterity loss, weakness, balance problems or incontinence. She does have a strange radiating feeling in her right arm and numbness of her left index finger for many years. She denies dropping objects. On exam, I do not find any signs of cervical myelopathy. The MRI of the cervical spine does show spinal spinal cord compression predominantly at C5-C6 compressing the left side of the spinal cord. No myelomalacia. We decided to hold off on any surgical intervention. I would like to follow-up with her in a few months to reassess her neurologically. She will contact my office if any symptoms occur. I spent 30 minutes in his consult to review imaging and discussing plan of care. Erik Alas MD, PhD Spine Fellowship Trained Neurosurgeon Director, [facility] Coding Level of Care Code Est Pt Level 4 (89449) Diagnoses Cervical spondylosis M47.812
== END 2023-03-15 15:02 | disposition home or self-care (01) ==
PROVIDERS: Visit Provider Neurological Surgery
DX: M47.812 Spondylosis without myelopathy or radiculopathy, cervical region (principal)
CPT/HCPCS: 99214

== ENCOUNTER → 2023-03-15 13:25 | Outpatient (BNVA) | payer MEDICARE, OTHER, SELFPAY | PROVIDERS: Visit Provider Neurological Surgery | DX: M47.812 Spondylosis without myelopathy or radiculopathy, cervical region (principal) | CPT/HCPCS: 99212 ==

== ENCOUNTER 2023-03-29 14:24 | Outpatient (REF) | payer MEDICARE, OTHER, SELFPAY ==
[2023-03-29 16:09] LABS: MANUAL DIFF FLAG NO
[2023-03-29 16:17] LABS: Basophils Percent Auto 0.4 % (0-2); Eosinophils Absolute Auto 0.1 X10*3/uL (0.0-0.4); Eosinophils Percent Auto 2.4 % (0-4); Hematocrit 37.1 % (37.0-47.0); Hemoglobin 11.8 g/dl (12.0-16.0); Imm Gran Abs Auto 0.01 X10*3/uL (0.00-0.03); Imm Gran Pct Auto 0.2 % (0.0-0.4); Lymphocytes Absolute Auto 1.2 X10*3/uL (1.2-4.9); Lymphocytes Percent Auto 26.3 % (20-40); Mean Corpuscular HGB Conc 31.8 g/dl (31.0-35.0); Mean Corpuscular Hemoglobin 30.2 pg (27.0-33.0); Mean Corpuscular Volume 94.9 fL (80.0-98.0); Mean Platelet Volume 10.9 fL (9.4-12.3); Monocytes Absolute Auto 0.4 X10*3/uL (0.1-1.2); Monocytes Percent Auto 8.6 % (2-11); Neutrophils Absolute Auto 2.8 x10*3/uL (2.0-8.3); Neutrophils Percent Auto 62.1 % (45-73); Platelet Count 214 X10*3/uL (160-400); Red Blood Count 3.91 X10*6/uL (4.20-5.50); Red Cell Distribution Width 13.4 % (11.0-16.0); White Blood Count 4.5 X10*3/uL (4.8-10.8)
[2023-03-29 16:26] LABS: Alanine Aminotransferase 13 U/L (0-31); Albumin Level 4.2 g/dL (3.5-5.0); Alkaline Phosphatase 54 U/L (39-117); Anion Gap 12 (12-20); Aspartate Amino Transferase 20 U/L (5-31); Bilirubin Total 0.6 mg/dL (0.0-1.0); Blood Urea Nitrogen 26 mg/dL (9-16); C Reactive Protein 0.11 mg/dL (< or = 0.50); Calcium 9.9 mg/dL (8.4-10.2); Carbon Dioxide 26 mmol/L (22-29); Chloride 108 mmol/L (96-108); Estimated Glomerular Filt Rate 29; Glucose Random 78 mg/dL (60-115); Potassium 4.1 mmol/L (3.3-5.1); Sodium 142 mmol/L (135-145); Total Protein 7.5 g/dL (6.5-8.0)
[2023-03-29 17:00] LABS: Erythrocyte Sedimentation Rate 14 MM/HR (0-20)
== END 2023-03-29 14:25 | disposition home or self-care (01) ==
LOC: HO.HMGCLDS 14:24
PROVIDERS: PCP Internal Medicine; Visit Provider Internal Medicine Rheumatology
DX: M05.9 Rheumatoid arthritis with rheumatoid factor, unspecified (principal)
CPT/HCPCS: 36415; 80053; 85025; 85652; 86140

== ENCOUNTER 2023-07-22 10:45 | Outpatient (AMB) | payer MEDICARE, OTHER, SELFPAY ==
--- NOTE | 2023-07-22 10:48 | A.OFFVIS_ITS ---
Vital Signs 07/22/23 10:56 Height 5 ft 3 in Weight 145 lb 1.027 oz BMI 25.7 BP 124/62 Blood Pressure Location Rt brachial Position Sitting Pulse 78 Pulse Source Pulse Oximeter Pulse Oximetry (%) 98 Oxygen Delivery Method Room Air Intake Visit Reasons: RA Intake Note: Patient last seen 01/19/[address] Nixon, presents today for follow up and test results. Reports worsening right arm pain. Psychological Aide Required: No Accompanied by: Self / Same As Patient Allergies erythromycin base Allergy (Intermediate, Verified 07/27/23 13:31) Hives hydrocodone Allergy (Intermediate, Verified 07/27/23 13:31) shaky, rapid heart beat oxycodone Allergy (Intermediate, Verified 07/27/23 13:31) shaky,rapid heartbeat piroxicam [From Feldene] Allergy (Intermediate, Verified 07/27/23 13:31) Shortness of Breath Sulfa (Sulfonamide Antibiotics) Allergy (Intermediate, Verified 07/27/23 13:31) hives HPI Comments Details: Ms. Clifford 77 yoF returns for follow-up of her rheumatoid arthritis. She remains on methotrexate 7.5 mg weekly and folic acid 1 mg daily. In general the joints are doing okay but she does have chronic pain in the right shoulder, occasional pain in the neck, and numbness in the right hand. She is following with neuro for this. following with Nephrology - Missing Right Kidney - Next appt september 2023. 01/19/2023 Dr. Nixon: Patient returns for evaluation of her rheumatoid arthritis. She remains on met hotrexate 7.5 mg weekly and folic acid 1 mg daily. In general the joints are doing okay but she does have chronic pain in the right shoulder, occasional pain in the neck, and numbness in the right hand. Further workup has included MRI scan of the neck and nerve conduction studies. The nerve conduction studies did show some mild right carpal tunnel syndrome. Further evaluation of her neck problem is apparently planned. She notes more paresthesias in the hand night. The right shoulder, a chronic problem, continues to bother her with any movement. She did see surgery about this but she apparently has rather severe rotator cuff attrition and the surgeon felt that surgery would not be all that effective at improving her function. She has concerns about her kidney function which of course declined after nephrectomy. 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 Osteoarthritis of glenohumeral joints, bilateral CKD (chronic kidney disease) stage 3, GFR 30-59 ml/min Hypertension Osteoarthritis of lumbar spine Seropositive rheumatoid arthritis Surgical History History of nephrectomy, right Social History Household Members Other:: lives alone Housing: House Are you a primary manager primary care to a significant other at home: No Do you presently have visiting nurse or other home services: No 75 years or older and lives alone: No Alcohol intake: current Alcohol intake frequency: a few times a week Alcohol type: wine Patient Tobacco Use Status: Never used Tobacco e-Cigarette/Vaping Use: Never Used Current occupational status: retired Review of Systems Const All systems reviewed & are unremarkable except as noted in HPI and below Physical Exam Vital Signs: Last Vital Signs Pulse 78 07/22/23 10:56 BP 124/62 07/22/23 10:56 Pulse Ox 98 07/22/23 10:56 Oxygen Delivery Method Room Air 07/22/23 10:56 BMI result Body Mass Index 25.7 APPEARANCE: Patient in no acute distress EYES no redness, eyelids normal HEART:? Regular rhythm, S1-S2 heard, no murmurs, rubs or gallops. LUNG:? Clear to auscultation Cervical Spine:.? Lateral flexion limited at 10 degrees and rotation at 50 degrees with slight discomfort.? No tenderness. Thoracic Spine:.? No scoliosis.? No tenderness on palpation. Lumbar Spine:.? Alignment normal.? Full range of motion without pain, no tenderness. Chest Wall:.? No tenderness, swelling, increased warmth or erythema. Hands:? Right:? Slight thickening at the 2nd and 3rd MCP joints but no tenderness.? No other areas of tenderness or swelling.? No thenar atrophy or sensory loss.? Left:? Slight thickening without tenderness at the 2nd through 4th MCP joints.? No other swelling or tenderness elsewhere.? No thenar atrophy or sensory loss. Wrists:.? Normal pain-free range of motion without tenderness, swelling, increased warmth or erythema. Elbows:? Right:? She lacks about 10 degrees of full extension with slight discomfort at the extremes of motion but no swelling or tenderness in the elbow.? Left:? Normal pain-free range of motion without tenderness, swelling, increased warmth or erythema. Shoulders:? Right:? Active abduction is limited at about 80? degrees, passively I can push it up to about 120 degrees but with mild pain.? There is abductor weakness.? Rotation is also limited to about 10 degrees internally or externally.? No axillary or supraclavicular adenopathy; no soft tissue swelling.? Some deltoid atrophy.? Left:? She has mild discomfort with extremes of normal range of motion. There is some minimal anterior tenderness but no swelling or abductor weakness.? No axillary or supraclavicular adenopathy.? Hips:.? Full range of motion without pain. Hip bursa:.? No tenderness. Knees:.?? Normal pain-free range of motion without tenderness, swelling, increased warmth or erythema.? There is no effusion or crepitation Ankles:.? Left:? Some valgus deformity and pain with extremes of range of motion.? Mild medial tenderness, more prominent on the medial side without significant swelling, redness or warmth.? Right:? pain-free range of motion without tenderness, swelling, increased warmth or erythema. Feet:? Right:? She has a callus underneath the IP joint of the toe on the medial aspect.? This is somewhat tender so there may be a corn present as well.? There is some minimal tenderness at the 1st MTP but I do not think any swelling.? She has a soft tissue lump near the 1st MTP on the sole of foot, this is not tender. Left:? Normal pain-free range of motion with some slight tenderness at the 1st MTP and maybe some minimal bony enlargement.? No other areas of tenderness or swelling. ? Results Reviewed Results Reviewed: Laboratory Tests 03/29/23 14:50 WBC 4.5 L RBC 3.91 L Hgb 11.8 L Hct 37.1 ESR 14 Creatinine 1.70 H AST 20 ALT 13 C-Reactive Protein 0.11 Total Protein 7.5 Albumin 4.2 Assessment & Plan Assessment & Plan (1) Osteoarthritis of glenohumeral joints, bilateral: Comment: R>L, history of old injury on the right Code(s): M19.011 - Primary osteoarthritis, right shoulder; M19.012 - Primary osteoarthritis, left shoulder Category: Medical (2) Carpal tunnel syndrome: Code(s): G56.00 - Carpal tunnel syndrome, unspecified upper limb Category: Medical Qualifiers: Laterality: right Qualified Code(s): G56.01 - Carpal tunnel syndrome, right upper limb (3) Cervical spinal stenosis: Code(s): M48.02 - Spinal stenosis, cervical region Category: Medical (4) Seropositive rheumatoid arthritis: Comment: Dx from the past (in her 30's); varying activity, mostly low grade, no DMARD's ever. Neg GAMA but pos CCP Ab and RF Methotrexate started 03/21 Code(s): M05.9 - Rheumatoid arthritis with rheumatoid factor, unspecified Category: Medical (5) CKD (chronic kidney disease) stage 3, GFR 30-59 ml/min: Comment: due to HBP and right nephrectomy for cancer Code(s): N18.30 - Chronic kidney disease, stage 3 unspecified Category: Medical Qualifiers: Chronic kidney disease stage 3 subtype: stage 3b (GFR 30-44) Qualified Code(s): N18.32 - Chronic kidney disease, stage 3b Plan #Rheumatoid arthritis with good control of synovitis with current treatment of methotrexate 7.5 mg weekly, folic acid 1 mg per day.. #CKD: Ms. Buitrago has 1 kidney which has significant CKD so she remain on a reduced dose of methotrexate to 7.5 mg weekly. The white count is somewhat low but stable. She will continue to follow with Nephrology at her upcoming visit in September #Right shoulder OA/Cervical OA: She has end-stage glenohumeral osteoarthritis in the right shoulder. The pain in the shoulder is not always as prominent as currently but I would tend to agree that surgery may improve the pain but not necessarily her functioning given the significant rotator cuff damage noted on MRI. She will follow-up with pain management if need be on the further management of the cervical osteoarthritis. #Right CTS: The right hand numbness could be from carpal tunnel syndrome but may also be from from cervical issues. She continues to use the right wrist brace nightly as it does ameliorate carpal tunnel symptoms. #Long-term use: We will continue to monitor CBC, CMP, and ESR CRP, her labs are within normal range to continue methotrexate. Labs are due again in 6 months before next visit. 40 minutes spent reviewing history, evaluating patient and documenting Orders: Orders C Reactive Protein 6 Months M05.9 - Rheumatoid arthritis with rheumatoid factor, unspecified Aspartate Amino Transferase 6 Months Z79.899 - Other terminal operations supervisor (current) drug therapy, M05.9 - Rheumatoid arthritis with rheumatoid factor, unspecified Creatinine 6 Months Z79.899 - [facility] [place] [facility] drug therapy, M05.9 - Rheumatoid arthritis with rheumatoid factor, unspecified Complete Blood Count Auto Diff 6 Months Z79.899 - Other terminal operations supervisor (current) drug therapy, M05.9 - Rheumatoid arthritis with rheumatoid factor, unspecified Erythrocyte Sedimentation Rate 6 Months M05.9 - Rheumatoid arthritis with rheumatoid factor, unspecified Alanine Aminotransferase 6 Months Z79.899 - Other [place] [facility] (current) drug therapy, M05.9 - Rheumatoid arthritis with rheumatoid factor, unspecified Medications: Refilled methotrexate sodium 7.5 mg (3 x 2.5 mg) PO QWEEK 48 tabs 1RF M05.9 - Rheumatoid arthritis with rheumatoid factor, unspecified Coding Level of Care Code Est Pt Level 4 (06470) Diagnoses Osteoarthritis of glenohumeral joints, bilateral M19.011; M19.012 Carpal tunnel syndrome of right wrist G56.01 Laterality: right Cervical spinal stenosis M48.02 Seropositive rheumatoid arthritis M05.9 Stage 3b chronic kidney disease N18.32 Chronic kidney disease stage 3 subtype: stage 3b (GFR 30-44)
[2023-07-22 10:56] VITALS: BP 124/62; PULSE 78; O2SAT 98; BMI 25.7
== END 2023-07-22 11:39 | disposition home or self-care (01) ==
PROVIDERS: PCP Internal Medicine; Visit Provider Nurse Practitioner Family
DX: M05.79 Rheumatoid arthritis with rheumatoid factor of multiple sites without organ or systems involvement (principal); M19.011 Primary osteoarthritis, right shoulder; M19.012 Primary osteoarthritis, left shoulder; G56.01 Carpal tunnel syndrome, right upper limb; M48.02 Spinal stenosis, cervical region; N18.32 Chronic kidney disease, stage 3b
CPT/HCPCS: 99214

== ENCOUNTER → 2023-07-22 10:45 | Outpatient (BNVA) | payer MEDICARE, OTHER, SELFPAY | PROVIDERS: Visit Provider Nurse Practitioner Family | DX: M19.011 Primary osteoarthritis, right shoulder (principal); M19.012 Primary osteoarthritis, left shoulder; M48.02 Spinal stenosis, cervical region; M05.9 Rheumatoid arthritis with rheumatoid factor, unspecified; N18.32 Chronic kidney disease, stage 3b; G56.01 Carpal tunnel syndrome, right upper limb | CPT/HCPCS: 99212 ==

== ENCOUNTER 2023-07-27 13:11 | Outpatient (AMB) | payer MEDICARE, OTHER, SELFPAY ==
--- NOTE | 2023-07-27 13:18 | A.SPINEOV_ITS ---
Intake Intake Visit Reasons: 4 month follow up Intake Note: Ms. Clifford is here today for a 4 month F/u. Claims Service Representative Required: No Allergies erythromycin base Allergy (Intermediate, Verified 07/27/23 13:31) Hives hydrocodone Allergy (Intermediate, Verified 07/27/23 13:31) shaky, rapid heart beat oxycodone Allergy (Intermediate, Verified 07/27/23 13:31) shaky,rapid heartbeat piroxicam [From Feldene] Allergy (Intermediate, Verified 07/27/23 13:31) Shortness of Breath Sulfa (Sulfonamide Antibiotics) Allergy (Intermediate, Verified 07/27/23 13:31) hives Assessment & Plan Assessment & Plan (1) Numbness and tingling of right hand: Code(s): R20.0 - Anesthesia of skin; R20.2 - Paresthesia of skin (2) Cervical spinal cord compression: Code(s): G95.20 - Unspecified cord compression Plan Dear colleague, On 07/27/2023, I saw for follow-up Minna Clifford. She was diagnosed with radiological spinal cord compression at C5-C6 without signs of cervical myelopathy. She comes in for reassessment. She states that she just returned from [place] traveling 3 months without any difficulties. She did develop tingling in the 4th and 5th digits on the right side, which is bothering her. She had an EMG done in the past which was normal. We reviewed her MRI of the cervical spine in detail again with shows spinal cord compression at C5-C6 without myelomalacia but there is also a right C8 foraminal narrowing compressing the C8 nerve root. I explained to the patient that the tingling in the 4th and 5th digit could be related to the C8 nerve root or coming from ulnar nerve compression. We decided to wait and see. The patient will call my office if the symptoms are not improving. We will then order an EMG and a repeat MRI of the cervical spine. Finally, at the end of the office visit, the patient wanted to know what a surgery would entail. I described an anterior diskectomy and fusion, which would be done in day surgery. I spent 25 minutes in his consult to review imaging and discussing plan of care. Thank you for allowing me take care of your patient. Erik Alas MD, PhD Spine Fellowship Trained Neurosurgeon Director, [facility] Coding Level of Care Code Est Pt Level 3 (73122) Diagnoses Numbness and tingling of right hand R20.0; R20.2 Cervical spinal cord compression G95.20
== END 2023-07-27 14:38 | disposition home or self-care (01) ==
PROVIDERS: Visit Provider Neurological Surgery
DX: R20.0 Anesthesia of skin (principal); R20.2 Paresthesia of skin; G95.20 Unspecified cord compression
CPT/HCPCS: 99213

== ENCOUNTER → 2023-07-27 13:11 | Outpatient (BNVA) | payer MEDICARE, OTHER, SELFPAY | PROVIDERS: Visit Provider Neurological Surgery | DX: R20.0 Anesthesia of skin (principal); R20.2 Paresthesia of skin; G95.20 Unspecified cord compression | CPT/HCPCS: 99212 ==

== ENCOUNTER 2023-08-30 08:15 | Outpatient (REF) | payer MEDICARE, OTHER, SELFPAY ==
--- NOTE | 2023-08-30 08:24 | EMG_ITS ---
Right median and ulnar motor and sensory studies were performed. Right and medial and lateral antecubital brachial and radial sensory studies were performed and needle examination was performed. IMPRESSION: This is an unremarkable study with no evidence of median or ulnar neuropathy, plexopathy, or radiculopathy. MD VITOR Pinon/LOGANL / [id number]
== END 2023-08-30 08:16 | disposition home or self-care (01) ==
LOC: HO.NEURO 08:15
PROVIDERS: PCP Internal Medicine; Visit Provider Physician Assistant
DX: R20.0 Anesthesia of skin (principal); R20.2 Paresthesia of skin
CPT/HCPCS: 95886; 95910

== ENCOUNTER 2023-09-15 18:00 | Outpatient (REF) | payer MEDICARE, OTHER, SELFPAY ==
--- NOTE | ~2023-09-15 | MR_ITS ---
EXAMINATION: MR CERVICAL SPINE WITHOUT CONTRAST CLINICAL INFORMATION: Paresthesias of the skin. COMPARISON: MR cervical spine 11/24/2022. TECHNIQUE: MRI of the cervical spine was obtained using routine sequences without contrast. FINDINGS: There is slight retrolisthesis of C6 on C7. Alignment is otherwise normal in the sagittal dimension. Vertebral body heights are preserved. There are type I degenerative endplate changes at C7-T1. Mixed degenerative endplate changes at C4-C5. There is loss of intervertebral disc height and T2 signal intensity at multiple levels related to disc degeneration. The cervicomedullary junction is normal. Limited visualization of the posterior fossa reveals no abnormal finding. Occipital condyles and lateral C1 masses are intact. The atlantodental joint and both C1-C2 articular facets are unremarkable. At C2-C3 there is a slightly bulging disc. No canal stenosis. No neuroforaminal encroachment. At C3-C4 there is a central protrusion superimposed upon a bulging disc causing indentation of the thecal sac and abutment along the ventral surface of the cervical spinal cord. Mild canal stenosis. There is asymmetric degenerative arthrosis of the left facet joint causing mild left neuroforaminal encroachment. At C4-C5 there is a shallow right central protrusion superimposed upon a bulging disc causing indentation of the ventral thecal sac and subtle flattening along the right ventral surface of the cervical cord. Moderate canal stenosis. No clear evidence of abnormal intramedullary signal changes. Uncovertebral joint spurring and facet degenerative change causes severe left and mild right neuroforaminal encroachment. At C5-C6 there is a focal left central protrusion causing indentation of the thecal sac and flattening of the left ventral surface of the cervical cord. Moderate canal stenosis with possible compression along the left lateral aspect of the cervical spinal cord. Questionable intramedullary signal changes. Uncovertebral joint spurring and facet degenerative change causes moderate left neuroforaminal encroachment. At C6-C7 there is a bulging disc. Mild canal stenosis. Uncovertebral joint spurring and facet degenerative change causes severe left and mild right neuroforaminal encroachment. At C7-T1 there is a bulging disc and buckling of the ligamenta flava. Moderate canal stenosis. Uncovertebral joint spurring and facet degenerative change causes severe bilateral neuroforaminal encroachment. Visualized soft tissues of the neck are normal. Vascular flow voids are maintained. MR/MR cervical spine wo con IMPRESSION: There is multilevel degenerative spondylosis of the cervical spine. Moderate canal stenosis at C4-C5, C5-C6, and C7-T1. There is possible compression along left lateral aspect of the cervical spinal cord level of C5-C6 where there are questionable intramedullary signal changes that may represent a manifestation of myelomalacia. Otherwise no abnormal intramedullary signal changes are visualized elsewhere within the cervical cord. Mild canal stenosis at C3-C4 and C6-C7. There are varying degrees of neuroforaminal encroachment related to uncovertebral joint spurring and facet degenerative change as described above.
== END 2023-09-15 18:01 | disposition home or self-care (01) ==
LOC: HO.MRI 18:00
PROVIDERS: PCP Internal Medicine; Visit Provider Physician Assistant
DX: R20.0 Anesthesia of skin (principal); R20.2 Paresthesia of skin
CPT/HCPCS: 72141

== ENCOUNTER 2023-09-30 11:11 | Outpatient (AMB) | payer MEDICARE, OTHER, SELFPAY ==
--- NOTE | 2023-09-30 11:17 | HO.SPINEOV ---
Intake Visit Reasons: F/u on MRI Intake Note: Ms. Clifford is here today for a F/u on MRI. Warehouse Packaging Supervisor Required: No Allergies erythromycin base Allergy (Intermediate, Verified 07/27/23 13:31) Hives hydrocodone Allergy (Intermediate, Verified 07/27/23 13:31) shaky, rapid heart beat oxycodone Allergy (Intermediate, Verified 07/27/23 13:31) shaky,rapid heartbeat piroxicam [From Feldene] Allergy (Intermediate, Verified 07/27/23 13:31) Shortness of Breath Sulfa (Sulfonamide Antibiotics) Allergy (Intermediate, Verified 07/27/23 13:31) hives Assessment & Plan Assessment & Plan (1) Cervical spinal cord compression: Code(s): G95.20 - Unspecified cord compression Category: Medical Plan Mrs Clifford is here in follow-up. She underwent an EMG which did not reveal any cervical radiculopathy. She underwent a cervical MRI at [place], there is no official report back yet on the MRI but I sat down with her to review it. She still continues to have severe feelings radiculopathy down the right arm into the 4th and 5th digits where there is tingling/buzzing sensation. It does affect her quality of life. Sleeping can be difficult, she has to be in a recliner. She can not do many of the activities around her house in her yd that make her life meaningful an enjoyable. She does not have any myelopathic symptoms to report. I examined her again, and her strength is full but she does have clonus in both ankles and a Yoko sign on the left hand. This tells me that she is having some signs of spinal cord irritation from her stenosis, but has not gotten symptomatic yet. Her MRI shows that the C3-4 level looks to be slightly worse in terms of the central stenosis and there is some posterior displacement of the spinal cord but no cord signal change. The C5-6 osteophyte/disc complex on the left which is causing spinal cord compression looks similar. She also has the bilateral C7-T1 foraminal narrowing causing compression of the C8 nerve roots. I think this is where her symptoms are coming from down the right arm. I will review the MRI with Dr. Alas and review her symptom presentation. We had previously discussed the possibility of a C5-6 ACDF given her hyperreflexia and spinal cord compression, but now that she has having a radicular symptom which I suspect is coming from a different area, the question becomes should we pursue that 1st. Once I have a chance to look at everything with him I will call her back. We did discuss the surgery again, she understands she will need to be off her Plavix for 10 days, her aspirin for 7 days and her methotrexate for 14 days before surgery. She was concerned that having her head positioned in the operating room may exacerbate some of her vertigo as it did during her MRI and I told her this is certainly a possibility. Total amount of time spent in this visit was 20 minutes in discussion of symptoms, cervical MRI at [place] imaging results and subsequent plan of care Thanh Alas MD,PhD [facility] Coding Level of Care Code Est Pt Level 3 (37379) Diagnoses Cervical spinal cord compression G95.20
== END 2023-09-30 12:12 | disposition home or self-care (01) ==
PROVIDERS: PCP Internal Medicine; Visit Provider Physician Assistant
DX: G95.20 Unspecified cord compression (principal)
CPT/HCPCS: 99213

== ENCOUNTER → 2023-09-30 11:11 | Outpatient (BNVA) | payer MEDICARE, OTHER, SELFPAY | PROVIDERS: PCP Internal Medicine; Visit Provider Physician Assistant | DX: G95.20 Unspecified cord compression (principal); Z79.82 Long term (current) use of aspirin; Z79.01 Long term (current) use of anticoagulants | CPT/HCPCS: 99212 ==

== ENCOUNTER 2023-12-02 13:20 | Outpatient (AMB) | payer MEDICARE, OTHER, SELFPAY ==
--- NOTE | 2023-12-02 13:25 | A.SPINEOV_ITS ---
Intake Visit Reasons: Discuss Surgery Intake Note: Ms. Clifford is here today to discuss surgery. On Air Personality Required: No Allergies azithromycin Allergy (Intermediate, Verified 11/25/23 10:23) Hives erythromycin base Allergy (Intermediate, Verified 07/27/23 13:31) Hives hydrocodone Allergy (Intermediate, Verified 07/27/23 13:31) shaky, rapid heart beat hydromorphone [From Dilaudid] Allergy (Intermediate, Verified 11/25/23 10:23) Nausea and Vomiting lactose Allergy (Intermediate, Verified 11/25/23 10:23) Gastrointestinal Upset nickel Allergy (Intermediate, Verified 11/25/23 10:36) contact rash oxycodone Allergy (Intermediate, Verified 07/27/23 13:31) shaky,rapid heartbeat piroxicam [From Feldene] Allergy (Intermediate, Verified 07/27/23 13:31) Shortness of Breath Sulfa (Sulfonamide Antibiotics) Allergy (Intermediate, Verified 07/27/23 13:31) hives Assessment & Plan Assessment & Plan (1) Cervical spinal cord compression: Code(s): G95.20 - Unspecified cord compression Category: Medical Plan Dear colleague, On 12/02/2023 I saw for preoperative visit Minna Clifford. She scheduled to undergo an anterior diskectomy and fusion C5-C6 for severe spinal cord compression next week. She already discontinued the Plavix. She will also discontinue her baby aspirin. She can restart her Plavix 5 days postoperatively. I did tell her to ask her primary care physician if the Plavix is still required as there was a clear mechanical cause for her stroke in the past. She may only need a baby aspirin. I answered all her questions about the surgery and expected postoperative course. She mentioned she is allergic to oxycodone and therefore we will prescribe tramadol postoperatively. I spent 30 minutes in his consult for above reasons. Erik Alas MD, PhD Spine Fellowship Trained Neurosurgeon Director, [facility] Coding Level of Care Code Est Pt Level 4 (35706) Diagnoses Cervical spinal cord compression G95.20
== END 2023-12-02 13:56 | disposition home or self-care (01) ==
PROVIDERS: PCP Internal Medicine; Visit Provider Neurological Surgery
DX: G95.20 Unspecified cord compression (principal)
CPT/HCPCS: 99214

== ENCOUNTER → 2023-12-02 13:20 | Outpatient (BNVA) | payer MEDICARE, OTHER, SELFPAY | PROVIDERS: PCP Internal Medicine; Visit Provider Neurological Surgery | DX: G95.20 Unspecified cord compression (principal) | CPT/HCPCS: 99212 ==

== ENCOUNTER 2023-12-08 05:59 | Day surgery (SDC) | payer MEDICARE, OTHER, SELFPAY ==
--- NOTE | 2023-11-25 | ECG_ITS ---
Test Reason : pre op Blood Pressure : / mmHG Vent. Rate : 054 BPM Atrial Rate : 054 BPM P-R Int : 162 ms QRS Dur : 096 ms QT Int : 436 ms P-R-T Axes : 050 -03 075 degrees QTc Int : 413 ms Sinus bradycardia Nonspecific T wave abnormality Abnormal ECG No previous ECGs available Referred By: Martha Cohen Electronically Signed By:TEN VASQUEZ
[2023-11-25 10:27] VITALS: BMI 26.0
[2023-11-25 10:32] VITALS: BP 144/66; PULSE 59; RESP 20; O2SAT 100
--- NOTE | 2023-11-25 10:41 | HO.ANESPROP2 ---
Documented by User: Martha Cohen NP 12/06/23 13:49 HPI - Anesthesia Eval Consult details Narrative: 77yo F for C5-6 Ant Cerv Discectomy w/ fusion No recent illness Walks >2miles daily CVA: ~2016, salon stroke , on plavix RA: Methotrexate CKD: Renal CA s/p nephrectomy. Follows renal, stable with last visit. 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) Osteoarthritis of glenohumeral joints, bilateral (Acute) History of nephrectomy, right (Acute) CKD (chronic kidney disease) stage 3, GFR 30-59 ml/min (Acute) Hypertension (Acute) Osteoarthritis of lumbar spine (Acute) Seropositive rheumatoid arthritis (Acute) Past Medical History Medical History Diverticulitis CVA (cerebral vascular accident) Rotator cuff arthropathy of right shoulder 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 Osteoarthritis of glenohumeral joints, bilateral CKD (chronic kidney disease) stage 3, GFR 30-59 ml/min Hypertension Osteoarthritis of lumbar spine Seropositive rheumatoid arthritis Family History Family history of problems with anesthesia: No Surgical History Surgical History H/O colonoscopy History of breast lump/mass excision Hx of appendectomy Hx of hysterectomy History of nephrectomy, right History of Problems with Anesthesia: No (1 x PONV after dilaudid) Social History Social History Household Members Other:: lives alone Housing: House Are you a primary neurocritical care physician to a significant other at home: No Do you presently have visiting nurse or other home services: No Alcohol intake: current Alcohol intake frequency: a few times a week Alcohol type: wine Comment: walks 14-16 miles /week Patient Tobacco Use Status: Never used Tobacco e-Cigarette/Vaping Use: Never Used Use of substances other than those prescribed or required for medical reasons: No Have you been hit, kicked, punched, or otherwise hurt by someone within the past year? If so, by whom?: No Are you DNR?: No Advance Directives Information Provided: Yes (as above noted) Advance Directives on File: No Recently lost weight without trying: No Eating poorly because of decreased appetite: No Nutrition Risks: No Nutritional Risk Poor oral hygiene: No (crowns) Current occupational status: retired Meds Allergies Allergy/AdvReac Type Severity Reaction Status Date / Time azithromycin Allergy Intermediate Hives Verified 11/25/23 10:23 erythromycin base Allergy Intermediate Hives Verified 07/27/23 13:31 hydrocodone Allergy Intermediate shaky, Verified 07/27/23 13:31 rapid heart beat hydromorphone [From Dilaudid] Allergy Intermediate Nausea and Verified 11/25/23 10:23 Vomiting lactose Allergy Intermediate Gastrointestinal Verified 11/25/23 10:23 Upset nickel Allergy Intermediate contact Verified 11/25/23 10:36 rash oxycodone Allergy Intermediate shaky,rapid Verified 07/27/23 13:31 heartbeat piroxicam [From Feldene] Allergy Intermediate Shortness Verified 07/27/23 13:31 of Breath Sulfa (Sulfonamide Allergy Intermediate hives Verified 07/27/23 13:31 Antibiotics) Home Medications ?Medication ?Instructions ?Recorded ?Confirmed ?Last Taken ?Type amlodipine 10 mg tablet 10 mg PO QAM 09/14/21 11/25/23 12/08/23 History aspirin 81 mg tablet,delayed 81 mg PO DAILY 09/14/21 11/24/23 11/30/23 History release (Adult Low Dose Aspirin) calcium carbonate 600 mg-vitamin 1 tab PO DAILY 09/14/21 11/24/23 12/07/23 History D3 10 mcg (400 unit) tablet (Calcium 600 + D(3)) cholecalciferol (vitamin D3) 25 25 mcg PO DAILY 09/14/21 11/24/23 12/07/23 History mcg (1,000 unit) capsule clopidogrel 75 mg tablet (Plavix) 75 mg PO DAILY 09/14/21 11/24/23 11/28/23 History folic acid 1 mg tablet 1 mg PO DAILY 09/14/21 11/24/23 12/07/23 History atorvastatin 80 mg tablet 80 mg PO BEDTIME 01/14/22 11/25/23 12/07/23 History Exam Height,Weight and Vital Signs: Height 5 ft 3 in Weight 66.678 kg Last Vital Signs Pulse 59 11/25/23 10:32 Resp 20 11/25/23 10:32 BP 144/66 H 11/25/23 10:32 Pulse Ox 100 11/25/23 10:32 O2 Del Method Room Air 11/25/23 10:32 Pertinent Lab Results Pertinent Lab Results: Lab Results 11/25/23 Range/Units 11:17 WBC 5.2 (4.8-10.8) X10*3/uL RBC 4.07 L (4.20-5.50) X10*6/uL Hgb 12.7 (12.0-16.0) g/dl Hct 38.9 (37.0-47.0) % MCV 95.6 (80.0-98.0) fL MCH 31.2 (27.0-33.0) pg MCHC 32.6 (31.0-35.0) g/dl RDW 12.9 (11.0-16.0) % Plt Count 207 (160-400) X10*3/uL MPV 10.8 (9.4-12.3) fL Absolute Nucleated RBC 0.000 (0.0-0.012) X10*3/uL Nucleated RBC % (auto) 0.0 (0.0-0.2) /100WBC Sodium 143 (135-145) mmol/L Potassium 4.9 (3.3-5.1) mmol/L Chloride 108 (96-108) mmol/L Carbon Dioxide 28 (22-29) mmol/L Anion Gap 12 (12-20) BUN 28 H (9-16) mg/dL Creatinine 1.71 H (0.5-1.4) mg/dL Estim Creat Clear Calc 26.0 Estimated GFR 29 Random Glucose 87 (60-115) mg/dL Calcium 10.1 (8.4-10.2) mg/dL Narrative Narrative: EKG Vent. Rate : 054 BPM Atrial Rate : 054 BPM P-R Int : 162 ms QRS Dur : 096 ms QT Int : 436 ms P-R-T Axes : 050 -03 075 degrees QTc Int : 413 ms Sinus bradycardia Nonspecific T wave abnormality Abnormal ECG No previous ECGs available Airway Mallampati Class: II TM Dist: >3cm Neck ROM: Limited Loose/Missing/Broken Teeth: No (crowned molars) Heart: RRR Lungs: CTAB Assessment and Plan Assessment Anesthesia Assessment: Anesthesia Plan Discussed and PAT Visit Final Anesthetic Review Family History of Problems with Anesthesia: No History of Problems with Anesthesia: No (1 x PONV after dilaudid) Documented by User: Laura Lancaster MD 12/08/23 08:12 [facility] Past Medical History Medical History Diverticulitis CVA (cerebral vascular accident) Rotator cuff arthropathy of right shoulder 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 Osteoarthritis of glenohumeral joints, bilateral CKD (chronic kidney disease) stage 3, GFR 30-59 ml/min Hypertension Osteoarthritis of lumbar spine Seropositive rheumatoid arthritis Surgical History Surgical History H/O colonoscopy History of breast lump/mass excision Hx of appendectomy Hx of hysterectomy History of nephrectomy, right Social History Social History Household Members Other:: lives alone Housing: House Are you a primary neurocritical care physician to a significant other at home: No Do you presently have visiting nurse or other home services: No Alcohol intake: current Alcohol intake frequency: a few times a week Alcohol type: wine Comment: walks 14-16 miles /week Patient Tobacco Use Status: Never used Tobacco e-Cigarette/Vaping Use: Never Used Use of substances other than those prescribed or required for medical reasons: No Have you been hit, kicked, punched, or otherwise hurt by someone within the past year? If so, by whom?: No Are you DNR?: No Advance Directives Information Provided: Yes (as above noted) Advance Directives on File: No Recently lost weight without trying: No Eating poorly because of decreased appetite: No Nutrition Risks: No Nutritional Risk Poor oral hygiene: No (crowns) Current occupational status: retired Meds Allergies Allergy/AdvReac Type Severity Reaction Status Date / Time azithromycin Allergy Intermediate Hives Verified 11/25/23 10:23 erythromycin base Allergy Intermediate Hives Verified 07/27/23 13:31 hydrocodone Allergy Intermediate shaky, Verified 07/27/23 13:31 rapid heart beat hydromorphone [From Dilaudid] Allergy Intermediate Nausea and Verified 11/25/23 10:23 Vomiting lactose Allergy Intermediate Gastrointestinal Verified 11/25/23 10:23 Upset nickel Allergy Intermediate contact Verified 11/25/23 10:36 rash oxycodone Allergy Intermediate shaky,rapid Verified 07/27/23 13:31 heartbeat piroxicam [From Feldene] Allergy Intermediate Shortness Verified 07/27/23 13:31 of Breath Sulfa (Sulfonamide Allergy Intermediate hives Verified 07/27/23 13:31 Antibiotics) Home Medications ?Medication ?Instructions ?Recorded ?Confirmed ?Last Taken ?Type amlodipine 10 mg tablet 10 mg PO QAM 09/14/21 11/25/23 12/08/23 History aspirin 81 mg tablet,delayed 81 mg PO DAILY 09/14/21 11/24/23 11/30/23 History release (Adult Low Dose Aspirin) calcium carbonate 600 mg-vitamin 1 tab PO DAILY 09/14/21 11/24/23 12/07/23 History D3 10 mcg (400 unit) tablet (Calcium 600 + D(3)) cholecalciferol (vitamin D3) 25 25 mcg PO DAILY 09/14/21 11/24/23 12/07/23 History mcg (1,000 unit) capsule clopidogrel 75 mg tablet (Plavix) 75 mg PO DAILY 09/14/21 11/24/23 11/28/23 History folic acid 1 mg tablet 1 mg PO DAILY 09/14/21 11/24/23 12/07/23 History atorvastatin 80 mg tablet 80 mg PO BEDTIME 01/14/22 11/25/23 12/07/23 History Assessment and Plan Final Anesthetic Review NPO: Yes ASA Class: III (intubation with ayers video scope with neck in neutral position. preexisting numbness in fingers) Final Preanesthetic Review: No Changes in Pt Med Stat, Meds/Allgs Chart Reviewed, Consent Obtained/Reviewed and Anes Risks/Benef Reviewed Patient Risk: Intermediate Procedure Risk: Intermediate Anesthetic Plan Anesthetic Plan: GA Disposition: Standard PACU
[2023-11-25 11:49] LABS: Hematocrit 38.9 % (37.0-47.0); Hemoglobin 12.7 g/dl (12.0-16.0); Mean Corpuscular HGB Conc 32.6 g/dl (31.0-35.0); Mean Corpuscular Hemoglobin 31.2 pg (27.0-33.0); Mean Corpuscular Volume 95.6 fL (80.0-98.0); Mean Platelet Volume 10.8 fL (9.4-12.3); Platelet Count 207 X10*3/uL (160-400); Red Blood Count 4.07 X10*6/uL (4.20-5.50); Red Cell Distribution Width 12.9 % (11.0-16.0); White Blood Count 5.2 X10*3/uL (4.8-10.8)
[2023-11-25 12:21] LABS: Anion Gap 12 (12-20); Blood Urea Nitrogen 28 mg/dL (9-16); Calcium 10.1 mg/dL (8.4-10.2); Carbon Dioxide 28 mmol/L (22-29); Chloride 108 mmol/L (96-108); Estimated Glomerular Filt Rate 29; Glucose Random 87 mg/dL (60-115); Potassium 4.9 mmol/L (3.3-5.1); Sodium 143 mmol/L (135-145)
[2023-12-08] VITALS (7 sets, daily range): BP systolic 142–147; BP diastolic 62–66; PULSE 58–64; RESP 16–18; TEMP 36.1–36.7; O2SAT 97–99; BMI 25.9
[2023-12-08] MEDS: Lactated Ringers 1,000 ML 100 ML IVCONT (06:43)
[2023-12-08] MEDS: methocarbamoL 750 MG TABLET PO (06:47)
[2023-12-08] MEDS: vancomycin HCL 1,000 MG in 0.9 % Sodium Chloride 250 ML 270 MG IV (06:49)
--- NOTE | 2023-12-08 07:03 | PM.DS ---
DS: Providers Provider Date of Service: 12/08/23 Date of discharge: 12/08/23 Primary care physician: Keke Aly DO Admitting clinician: Erik Alas DS: Diagnosis Discharge Diagnosis (1) Cervical spinal cord compression: Status: Acute DS: Summary Time Attestation Discharge Coordination Time (in mins): 5 Quality: Safe Use of Opioids Does Pt have an Active Cancer Diagnosis on the Problem List?: No Quality: Stroke Does the patient have a stroke diagnosis?: No Physical Exam Vital Signs: Vital Signs: Last Vital Signs Temp 98.0 F 12/08/23 06:27 Pulse 64 12/08/23 06:27 Resp 16 12/08/23 06:27 BP 146/64 H 12/08/23 06:27 Pulse Ox 98 12/08/23 06:27 O2 Del Method Room Air 12/08/23 06:27 BMI result Body Mass Index 25.9 Discharge Plan Discharge Patient Disposition: Home, Self-Care Referrals: Keke Aly DO [Primary Care Provider] - 1 Week Discharge Medications: New tramadol 50 mg tablet 50 mg PO Q6H PRN (Reason: pain) Qty: 20 0RF Continued (DME) Wrist Brace Misc See Rx Instructions .ROUTE .MEDSUPPLY Qty: 1 0RF Rx Instructions: Use as directed at night on right wrist atorvastatin 80 mg tablet 80 mg PO BEDTIME folic acid 1 mg tablet 1 mg PO DAILY cholecalciferol (vitamin D3) 25 mcg (1,000 unit) capsule 25 mcg PO DAILY calcium carbonate-vitamin D3 [Calcium 600 + D(3)] 600 mg-10 mcg (400 unit) tablet 1 tab PO DAILY amlodipine 10 mg tablet 10 mg PO QAM lidocaine 5 % adhesive patch,medicated 1 patch topical DAILY 30 Days Qty: 30 1RF Rx Instructions: Apply to affected area for up to 12 hours daily Held aspirin [Adult Low Dose Aspirin] 81 mg tablet,delayed release (DR/EC) 81 mg PO DAILY Hold Instructions: Resume on 12/13/23. You may resume aspirin 5 days after surgery clopidogrel [Plavix] 75 mg tablet 75 mg PO DAILY Hold Instructions: Resume on 12/13/23. You may resume Plavix 5 days after surgery methotrexate sodium 2.5 mg tablet 7.5 mg PO QWEEK Qty: 48 1RF Hold Instructions: Resume on 12/22/23. You may resume methotrexate 2 weeks after surgery as long as her wound is healed up Discharge Orders: Discharge Order (Routine); Ordered 12/08/23 Ordered By: Thanh Catalan Diet: Advance to usual diet Activity on Discharge: As tolerated Activity Restrictions/Additional Instructions: After your spinal surgery we ask you to observe the following restrictions/guidelines: Activity: It is normal to feel some discomfort as you increase your activity, but that will improve with time. We ask you avoid heavy lifting or acitivities that cause pain. As a general rule, 8lbs is a safe limit for lifting right after surgery. Walk as much as you feel comfortable but not to exhaustion. You will feel extra tired the first few days after surgery. Stay well hydrated. It is OK to walk up and down stairs You may return to driving when you are off narcotics (such as vicodin, oxycodone, dilaudid, etc), and you are back to normal functional capacity. If you have any concerns please check with office before driving. Return to work is specific to each patient and each surgery, so please speak with your doctor/PA at first follow up. Please bring paperwork such as FMLA at that time if you need it filled out. Medications: You may resume your aspirin and Plavix 5 days after surgery, you may resume methotrexate 2 weeks after surgery. For optimum pain control, it is best to start with a combination of 500 mg of Tylenol every 4 hours with 600 mg of Motrin every 8 hours, and use narcotics as needed in between for breakthrough pain. We will give you a short supply of narcotics after surgery (usually one weeks worth). If you need more please call the office but do not use more than prescribed. You will need to give our office 48 hours notice if you need narcotics refilled and we do not fill narcotics on weekends or evenings. If you are on a narcotic, it is a good idea to take a stool softener such as colace or senna to avoid constipation If you take blood thinner such as aspirin, Plavix, Coumadin, Effient, Eliquis etc for conditions such as Afib, DVT, Pulmonary embolus, coronary disease, stents etc please speak with your surgeon about specific details as to when you can resume these medications. You can resume NSAIDs on post op day 1 (eg: Motrin, Naproxen, etc). Follow up: Please call the office, , after surgery to arrange a 3 week follow up for wound check. Wound Care: You may remove your dressing on the first day after surgery. ?You may ?leave open to air. Please do not remove the steri strips underneath. they will fall off on their own in one week. IT IS NORMAL FOR THE WOUND TO OOZE OR BE BLOODY FOR A FEW DAYS AFTER SURGERY. ?IF THIS HAPPENS JUST PLACE NEW DRESSING OVER IT TO AVOID STAINING CLOTHES. You may shower on post op day # 1 We ask that you do not let the water soak the wound. If it does get wet, just towel dry lightly. Please do not scrub your incision or place any type of chemical/ointment on the wound. No tub baths, pools or jacuzzis for one month. If you have any leaking or redness from your wound, or fevers, please call office Print Language: Anguillan
--- NOTE | 2023-12-08 07:27 | MHC.SHP ---
Pre-Procedural Eval Section A - 24 Hr Update-Section A only Date of Service: 12/08/23 The patient is an INPATIENT: No Changes since office visit: No Cold of Flu in the past 2 weeks, No New Medical Problems, No Changes in Medication and No Patient answered all questions The patient has been examined within 24 hours of the surgical procedure. The History & Physical has been completed within 30 days and I have reviewed it.: No Section B - Complete if H&P > 30 days Chief Complaint: Unspecified cord compression Allergies: Allergies Allergy/AdvReac Type Severity Reaction Status Date / Time azithromycin Allergy Intermediate Hives Verified 11/25/23 10:23 erythromycin base Allergy Intermediate Hives Verified 07/27/23 13:31 hydrocodone Allergy Intermediate shaky, Verified 07/27/23 13:31 rapid heart beat hydromorphone [From Dilaudid] Allergy Intermediate Nausea and Verified 11/25/23 10:23 Vomiting lactose Allergy Intermediate Gastrointestinal Verified 11/25/23 10:23 Upset nickel Allergy Intermediate contact Verified 11/25/23 10:36 rash oxycodone Allergy Intermediate shaky,rapid Verified 07/27/23 13:31 heartbeat piroxicam [From Feldene] Allergy Intermediate Shortness Verified 07/27/23 13:31 of Breath Sulfa (Sulfonamide Allergy Intermediate hives Verified 07/27/23 13:31 Antibiotics) Review of Systems Sugical H&P ROS: Negative: Constitution, Cardiovascular, Respiratory, Neurological, Psychiatric, Hem-Onc, Allergic/Immunologic, Gastrointestinal, Genitourinary, Musculoskeletal, Integumentary, Endocrine and Eyes/Ears/Nose/Throat Exam Surgical H&P Exam: Normal: HEENT, Normal: Heart, Normal: Lungs, Normal: Extremities, Normal: Abdomen, Normal: Skin and Normal: Neurological (awake, alert,oriented x 3 ) Plan Diagnosis/Plan: Unchanged C5-6 Anterior cervical diskectomy and fusion Time Spent With Patient Time: Total time managing care of this patient today __5__ minutes.
--- NOTE | 2023-12-20 10:10 | P.OP_ITS ---
Operative Note Operative Note Date of Service: 12/08/23 Narrative: Preoperative Diagnosis: Cervical myelopathy and left cervical radiculopathy Procedure: C5-C6 Anterior discectomy, arthrodesis and implantation cage ; C5-C6 anterior instrumentation ; local autograft; microscope Informed Consent was obtained for this operation. I have explained the nature, purpose and benefits of the operation. I have discussed the risks and benefit of the operation including possible complications or adverse events with patient/family. Alternative(s) were discussed with the patient with their relative benefits and risks as well as the consequences of not accepting the operation were included in obtaining consent. Surgeon: CHAD EVANS MD, PHD Procedure Assisted By: fercho Asher Description of Procedure: This 78-year-old female is suffering from cervical myelopathy with spinal cord compression and a left cervical radiculopathy which may either be related to the spinal cord compression or due to a C8 foraminal stenosis on the left side. The patient is aware that we are operating her for the spinal cord compression and that a 2nd procedure may be required to decompress the C8 nerve root if the left arm pain persists. The procedure complications were explained. The patient was consented. The patient was brought to the operating room and endotracheally intubated. The patient was put in supine position with slight extension of the neck. Prep and drape was done followed by timeout. A mid cervical incision was made followed by opening of the platysma. The prevertebral fascia was reached following the natural planes while the physician expanded function dental assistant provided manual re traction. The prevertebral fascia was opened to expose the disc space. A spinal needle was placed in the disk space to confirm the correct level with xray. The longus colli muscles were released bilaterally and a self retaining retractor was inserted. Two Palisade pins were placed in the C5-C6 vertebral bodies and distraction was give over the interspace. The discectomy was completed toward the posterior annulus of the disc. The microscope was brought in. The remainder of the discectomy was completed. The posterior ligament was opened and resected to expose the underlying dura. Osteophytes were resected from the body of C5-C6 and saved for autograft. Bilateral foraminotomies were done. The endplates were prepared after which a 6 mm cage filled with autograft was inserted into the disc space. A separate attached plate was locked down with 2 x 14 mm screws as anterior instrumentation. Final x-rays in AP and lateral projection showed a satisfactory position of the implant. The physician brittany ayon took over. The Palisade pin was removed. Hemostasis was done. He closed the incision in 2 layers with a 3-0 Vicryl. Steri-Strips used to approximate incision. An OpSite with Tegaderm was used to cover the incision. All sponge and needle counts were correct. Patient was extubated and transported in stable is to recovery room. Anesthesia: General Estimated Blood Loss (ml): 20 mL Duration of Surgery: 1 hour Postoperative Plan: Discharge home Complications: None
== END 2023-12-08 11:18 | disposition home or self-care (01) ==
PROVIDERS: Nurse Practitioner; PCP Internal Medicine; Visit Provider Neurological Surgery
PROC: (CPT 22551; principal; 2023-12-08 07:30)
DX: M50.022 Cervical disc disorder at C5-C6 level with myelopathy (principal); M50.122 Cervical disc disorder at C5-C6 level with radiculopathy; G95.20 Unspecified cord compression; R20.0 Anesthesia of skin; R25.8 Other abnormal involuntary movements; I12.9 Hypertensive chronic kidney disease with stage 1 through stage 4 chronic kidney disease, or unspecified chronic kidney disease; N18.30 Chronic kidney disease, stage 3 unspecified; Z90.5 Acquired absence of kidney; Z85.53 Personal history of malignant neoplasm of renal pelvis; M05.9 Rheumatoid arthritis with rheumatoid factor, unspecified; Z86.73 Personal history of transient ischemic attack (TIA), and cerebral infarction without residual deficits; Z79.631 Long term (current) use of antimetabolite agent; Z79.01 Long term (current) use of anticoagulants; Z79.82 Long term (current) use of aspirin; Z88.1 Allergy status to other antibiotic agents; Z88.2 Allergy status to sulfonamides; Z88.5 Allergy status to narcotic agent; Z88.8 Allergy status to other drugs, medicaments and biological substances
CPT/HCPCS: 22551; 22853; 20936; 22845; 36415; 80048; 85027; 93005; C1713; C1889; J0131; J2598; J2704; J3010; J3370

== ENCOUNTER → 2023-12-08 05:59 | Outpatient (BNV) | payer MEDICARE, OTHER, SELFPAY | PROVIDERS: PCP Internal Medicine; Visit Provider Physician Assistant | DX: M50.022 Cervical disc disorder at C5-C6 level with myelopathy (principal); M50.122 Cervical disc disorder at C5-C6 level with radiculopathy | CPT/HCPCS: 20936; 22551; 22845; 22853; 99499 ==

== ENCOUNTER 2023-12-29 14:23 | Outpatient (AMB) | payer MEDICARE, OTHER, SELFPAY ==
--- NOTE | 2023-12-29 14:25 | HO.SPINEOV ---
Intake Visit Reasons: 1st post op Intake Note: Mr. Clifford is here today for her 1st post-op. 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 Allergies azithromycin Allergy (Intermediate, Verified 11/25/23 10:23) Hives erythromycin base Allergy (Intermediate, Verified 07/27/23 13:31) Hives hydrocodone Allergy (Intermediate, Verified 07/27/23 13:31) shaky, rapid heart beat hydromorphone [From Dilaudid] Allergy (Intermediate, Verified 11/25/23 10:23) Nausea and Vomiting lactose Allergy (Intermediate, Verified 11/25/23 10:23) Gastrointestinal Upset nickel Allergy (Intermediate, Verified 11/25/23 10:36) contact rash oxycodone Allergy (Intermediate, Verified 07/27/23 13:31) shaky,rapid heartbeat piroxicam [From Feldene] Allergy (Intermediate, Verified 07/27/23 13:31) Shortness of Breath Sulfa (Sulfonamide Antibiotics) Allergy (Intermediate, Verified 07/27/23 13:31) hives Assessment & Plan Assessment & Plan (1) S/P cervical spinal fusion: Code(s): Z98.1 - Arthrodesis status Category: Surgical Plan Procedure: C5-C6 ACDF Minna is a pleasant 78 year old female who comes in today for her 1st postoperative visit. She reports that she has not been taking any prescribed pain medications since her surgery. She has been essentially just utilizing cyfb-bgt-[id number] remedies when needed. Given that, she is doing very well. She still reports pain throughout her body which he feels is likely secondary to her rheumatoid arthritis. She has restarted her methotrexate and began taking it again last week. She asked several questions regarding the postoperative healing course all of which I answered to the best of my ability. She has questions regarding her tramadol prescription, her musculature in her neck, her daily activities such as walking and ADLs. We also discussed her radicular symptoms, which he states have largely improved. However she does still report some numbness in her 4th and 5th digits bilaterally (worse on the right). No new neurological deficits. The patient is able to ambulate well and rises from a seated position without difficulty. Her anterior incision site was covered with Steri-Strips which I removed during this visit. The incision site appears clean, dry, no signs of drainage. Well healing. Overall, Minna is doing very well since her surgery. I feel her symptoms we will continue to improve with the tincture of time & the addition of her methotrexate to combat her rheumatoid arthritis. I would like to follow up with her again in 6 weeks and obtain a set of x-ray imaging. I will review her x-rays with her at her next visit. John Alas MD,PhD [facility] Coding Level of Care Code Global (17239) Diagnoses S/P cervical spinal fusion Z98.1
== END 2023-12-29 14:57 | disposition home or self-care (01) ==
PROVIDERS: PCP Internal Medicine; Visit Provider Physician Assistant
DX: Z98.1 Arthrodesis status (principal)
CPT/HCPCS: 99024

== ENCOUNTER → 2023-12-29 14:23 | Outpatient (BNVA) | payer MEDICARE, OTHER, SELFPAY | PROVIDERS: PCP Internal Medicine; Visit Provider Physician Assistant | DX: Z48.89 Encounter for other specified surgical aftercare (principal); Z98.1 Arthrodesis status | CPT/HCPCS: 99212 ==

== ENCOUNTER 2024-01-30 09:46 | Outpatient (AMB) | payer MEDICARE, OTHER, SELFPAY ==
--- NOTE | 2024-01-30 10:41 | A.SPINEOV_ITS ---
Intake Visit Reasons: 2nd post op with xrays Intake Note: Ms. Clifford is here today for her 2nd post-op with xrays. 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 Allergies azithromycin Allergy (Intermediate, Verified 02/21/24 13:17) Hives erythromycin base Allergy (Intermediate, Verified 02/21/24 13:17) Hives hydrocodone Allergy (Intermediate, Verified 02/21/24 13:17) shaky, rapid heart beat hydromorphone [From Dilaudid] Allergy (Intermediate, Verified 02/21/24 13:17) Nausea and Vomiting lactose Allergy (Intermediate, Verified 02/21/24 13:17) Gastrointestinal Upset nickel Allergy (Intermediate, Verified 02/21/24 13:17) contact rash oxycodone Allergy (Intermediate, Verified 02/21/24 13:17) shaky,rapid heartbeat piroxicam [From Feldene] Allergy (Intermediate, Verified 02/21/24 13:17) Shortness of Breath Sulfa (Sulfonamide Antibiotics) Allergy (Intermediate, Verified 02/21/24 13:17) hives Assessment & Plan Assessment & Plan (1) Hand pain, right: Code(s): M79.641 - Pain in right hand Category: Medical Plan Minna comes in today for his 2nd postoperative visit after having C5-6 ACDF completed by our service. She reports that she continues to do well since surgery, however did raise concerns regarding some pain near her distal radius, which she attributes to a lump / cyst that has formed on that side of her wrist. She reports that overall her neck and shoulder pain continues to improve. She did ask several questions regarding this lump on the radial side of her wrist, which I answered to the best of my ability despite limited knowledge of orthopedic hand conditions. No new neurological deficits on examination today. The patient ambulates well without any assistive devices. Gait is non-spastic. Anterior incision site is closed and well healed. I would like to have Minna follow up with our colleagues in Orthopedics to evaluate her hand / wrist complaints. She stated she would follow up with her PCP to obtain an orthopedics referral, but I informed her I would be more than happy to refer her to our colleagues here who do a great job with hand / wrist complaints. She was appreciative of this and will follow up with them accordingly. John Alas MD,PhD [facility] Orders: Orders XR cervical spine 4V 01/30/24 Z98.1 - Arthrodesis status Referrals Orthopedics Referral M79.641 - Pain in right hand Coding Level of Care Code Global (80384) Diagnoses Hand pain, right M79.641
== END 2024-01-30 11:18 | disposition home or self-care (01) ==
PROVIDERS: PCP Internal Medicine; Visit Provider Physician Assistant
DX: M79.641 Pain in right hand (principal)
CPT/HCPCS: 99024

== ENCOUNTER 2024-01-30 09:46 | Outpatient (REF) | payer MEDICARE, OTHER, SELFPAY ==
--- NOTE | ~2024-01-30 | XR_ITS ---
EXAMINATION: XR CERVICAL SPINE XR, WRIST, RIGHT CLINICAL INDICATION: Arthrodesis status, pain in right wrist. COMPARISON: Fluoroscopic guidance in OR 12/08/2023, MR cervical spine 09/15/2023, x-ray cervical spine 07/12/2022. TECHNIQUE: 4 views of the cervical spine, 3 views of the right wrist. FINDINGS: RIGHT WRIST: Ulnar minus variance with associated degenerative changes. Narrowing of the radiocarpal space with degenerative changes. Moderate degenerative changes in the 1st carpometacarpal joint and triscaphe joint with joint space narrowing and hypertrophic change. Diffuse demineralization. CERVICAL SPINE: Postsurgical changes with disc spacer at C5-C6. Straightening of the normal cervical lordosis. Multilevel cervical spondylosis. Kqqbacrz-qg-ivhpvu degenerative changes with loss of disc space height at C4-C5. Moderate loss of disc space height at C6-C7. Minimal anterior subluxation of C2 on C3, and of C3 on C4 with flexion, reduces with extension. XR/XR cervical spine 4V IMPRESSION: 1. Postsurgical changes with disc spacer at C5-C6. 2. Multilevel cervical spondylosis. 3. Moderate degenerative changes in the right wrist. Electronically signed by: Ilda Reyes MD 02/26/2024 08:42 PM EST
== END 2024-01-30 09:47 | disposition home or self-care (01) ==
LOC: HO.HOSX 09:46
PROVIDERS: PCP Internal Medicine; Visit Provider Physician Assistant
DX: M79.641 Pain in right hand (principal); Z47.89 Encounter for other orthopedic aftercare; Z98.1 Arthrodesis status
CPT/HCPCS: 72050; 99212

== ENCOUNTER 2024-02-21 12:42 | Outpatient (AMB) | payer MEDICARE, OTHER, SELFPAY ==
[2024-02-21 13:04] VITALS: BMI 25.9
--- NOTE | 2024-02-21 13:04 | A.OFFVIS_ITS ---
Vital Signs 02/21/24 13:04 Height 5 ft 3 in Weight 146 lb 4 oz BMI 25.9 Intake Visit Reasons: NewProb-R wrist pain and development of lump Intake Note: Minna is a 78 year old right hand dominant female who presents today for evaluation of right wrist pain from a lump on the radial aspect of the right wrist that was first noticed around December,. 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 Patient also reports difficulty bending her right index finger. Patient shares it has increased in size and changed in color. Denies any prior injuries or surgeries to the right hand. Reports history of neck surgery. Allergies azithromycin Allergy (Intermediate, Verified 02/21/24 13:17) Hives erythromycin base Allergy (Intermediate, Verified 02/21/24 13:17) Hives hydrocodone Allergy (Intermediate, Verified 02/21/24 13:17) shaky, rapid heart beat hydromorphone [From Dilaudid] Allergy (Intermediate, Verified 02/21/24 13:17) Nausea and Vomiting lactose Allergy (Intermediate, Verified 02/21/24 13:17) Gastrointestinal Upset nickel Allergy (Intermediate, Verified 02/21/24 13:17) contact rash oxycodone Allergy (Intermediate, Verified 02/21/24 13:17) shaky,rapid heartbeat piroxicam [From Feldene] Allergy (Intermediate, Verified 02/21/24 13:17) Shortness of Breath Sulfa (Sulfonamide Antibiotics) Allergy (Intermediate, Verified 02/21/24 13:17) hives HPI HPI NewProb-R wrist pain and development of lump: Details: The patient is a 78-year-old right-hand dominant retired woman who is seen today with several complaints for her right hand. Chief complaint is that she had significant pain in the radial aspect of her right wrist. There was a significant amount of swelling which has subsided but now she feels some bumps over the radial styloid. 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 She also reports that she has persistent numbness in the right small and ring fingers. She also reports that she had spine surgery here at [facility] with Dr. Alas. She says that prior to her spine surgery with Dr. Alas, she had significant pain in her right arm and was unable to use it. That pain improved but she still had some numbness in the right small and ring fingers. She says that she did discuss this with the PA at her follow-up. In reviewing the spine note from 12/29/2023, they reported numbness in the small and ring fingers bilaterally right worse than left that was persistent following the surgery. She also had a recent nerve conduction study of the right upper extremity. [facility] Medical History Diverticulitis CVA (cerebral vascular accident) Rotator cuff arthropathy of right shoulder assisted methotrexate user Osteoarthritis of glenohumeral joints, bilateral CKD (chronic kidney disease) stage 3, GFR 30-59 ml/min Hypertension Osteoarthritis of lumbar spine Seropositive rheumatoid arthritis Surgical History H/O colonoscopy History of breast lump/mass excision Hx of appendectomy Hx of hysterectomy History of nephrectomy, right Social History Household Members Other:: lives alone Housing: House Are you a primary care technician to a significant other at home: No Do you presently have visiting nurse or other home services: No 75 years or older and lives alone: No Alcohol intake: current Alcohol intake frequency: a few times a week Alcohol type: wine Comment: walks 14-16 miles /week Patient Tobacco Use Status: Never used Tobacco e-Cigarette/Vaping Use: Never Used Current occupational status: retired Current occupation: rt handed Physical Exam Vital Signs: BMI result Body Mass Index 25.9 Extrem Other: The patient was alert oriented and in no acute distress. Regarding her right hand: Median ulnar radial nerve motor and sensory were grossly intact except for dense numbness in the right small and ring fingers. No intrinsic or thenar wasting. Good finger abduction and adduction and finger cross. She can make a fist and extend all of her digits. No locking or catching. She has only very mild tenderness over the 1st dorsal compartment at the radial styloid. I do however appreciate perhaps 2 small cysts right over the 1st dorsal compartment at the radial styloid. She does report that the she used to have much more tenderness and pain in this area, but now only has pain with certain activities. Mildly positive Mike test on the left, and actually less of a Mike test on the right than she had on the left. Again she is only very minimally tender over the 1st dorsal compartment at the radial styloid. Results Reviewed: Nerve conduction study 08/30/2023 In the study of the right side only Impression: This is an unremarkable study with no evidence of median or ulnar neuropathy, plexopathy or radiculopathy Dr. Leo 08/30/2023 Nerve conduction study 09/2022 IMPRESSION: Mild right median neuropathy across carpal tunnel affecting sensory component. Otherwise, no significant abnormality was noted. With Dr. Leo, September of 2022 Radiographs three views of the right wrist , taken and reviewed by me today. Show no fracture or dislocation. She does have significant ulnar minus which appears chronic. No particular arthritic changes. Assessment & Plan Assessment & Plan (1) De Quervain's tenosynovitis, right: Code(s): M65.4 - Radial styloid tenosynovitis [de Quervain] Category: Medical Plan Assessment and plan: 1. Right de Quervain tenosynovitis This appears to be her chief complaint. However, it appears that she has had some good resolution in recent weeks. Only very minimal Mike test on the right, though she does have 2 small cysts directly over the 1st dorsal compartment at the radial styloid. I educated her about this condition We did discuss operative and non operative treatment options including steroid injection and surgery. We fitted her with a neoprene thumb spica splint to wear with daytime activities, so she no longer has to use her socks that are cut out to fit over this area. I talked to her for a long time about activity modification. I do believe that this is resolving on its own, and I am not recommending any intervention at this time. If symptoms should get worse, she knows to contact us to discuss again possible steroid injection versus surgery. 2. Numbness in the right small and ring fingers It looks like this was most likely caused by her cervical stenosis. The spine service noted that they were aware of bilateral numbness in this area right worse than left in there no in December of 2023. Also, her most recent nerve conduction study, 08/30/2023, was normal. No intervention indicated. Orders: Orders XR wrist RT min 3V Today M25.531 - Pain in right wrist Coding Level of Care Code New Pt Level 4 (16368) Diagnoses De Quervain's tenosynovitis, right M65.4
== END 2024-02-21 13:47 | disposition home or self-care (01) ==
PROVIDERS: PCP Internal Medicine; Visit Provider Orthopaedic Surgery
DX: M65.4 Radial styloid tenosynovitis [de Quervain] (principal)
CPT/HCPCS: 99204

== ENCOUNTER 2024-02-21 14:21 | Outpatient (REF) | payer MEDICARE, OTHER, SELFPAY ==
--- NOTE | ~2024-02-21 | XR_ITS ---
EXAMINATION: XR CERVICAL SPINE XR, WRIST, RIGHT CLINICAL INDICATION: Arthrodesis status, pain in right wrist. COMPARISON: Fluoroscopic guidance in OR 12/08/2023, MR cervical spine 09/15/2023, x-ray cervical spine 07/12/2022. TECHNIQUE: 4 views of the cervical spine, 3 views of the right wrist. FINDINGS: RIGHT WRIST: Ulnar minus variance with associated degenerative changes. Narrowing of the radiocarpal space with degenerative changes. Moderate degenerative changes in the 1st carpometacarpal joint and triscaphe joint with joint space narrowing and hypertrophic change. Diffuse demineralization. CERVICAL SPINE: Postsurgical changes with disc spacer at C5-C6. Straightening of the normal cervical lordosis. Multilevel cervical spondylosis. Tbxrxabv-hn-cgaose degenerative changes with loss of disc space height at C4-C5. Moderate loss of disc space height at C6-C7. Minimal anterior subluxation of C2 on C3, and of C3 on C4 with flexion, reduces with extension. XR/XR wrist RT min 3V IMPRESSION: 1. Postsurgical changes with disc spacer at C5-C6. 2. Multilevel cervical spondylosis. 3. Moderate degenerative changes in the right wrist. Electronically signed by: Ilda Reyes MD 02/26/2024 08:42 PM EST
== END 2024-02-21 14:22 | disposition home or self-care (01) ==
LOC: HO.HOSX 14:21
PROVIDERS: Visit Provider Orthopaedic Surgery
DX: M25.531 Pain in right wrist (principal); M65.4 Radial styloid tenosynovitis [de Quervain]
CPT/HCPCS: 73110; 99202

== ENCOUNTER 2024-05-09 14:01 | Outpatient (AMB) | payer MEDICARE, OTHER, SELFPAY ==
--- NOTE | 2024-05-09 14:40 | HO.SPINEOV ---
Intake Visit Reasons: Right arm pain Intake Note: Ms. Clifford is here today c/o Right arm to mid back pain. 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 Allergies azithromycin Allergy (Intermediate, Verified 05/09/24 14:51) Hives erythromycin base Allergy (Intermediate, Verified 05/09/24 14:51) Hives hydrocodone Allergy (Intermediate, Verified 05/09/24 14:51) shaky, rapid heart beat hydromorphone [From Dilaudid] Allergy (Intermediate, Verified 05/09/24 14:51) Nausea and Vomiting lactose Allergy (Intermediate, Verified 05/09/24 14:51) Gastrointestinal Upset nickel Allergy (Intermediate, Verified 05/09/24 14:51) contact rash oxycodone Allergy (Intermediate, Verified 05/09/24 14:51) shaky,rapid heartbeat piroxicam [From Feldene] Allergy (Intermediate, Verified 05/09/24 14:51) Shortness of Breath Sulfa (Sulfonamide Antibiotics) Allergy (Intermediate, Verified 05/09/24 14:51) hives Assessment & Plan Assessment & Plan (1) S/P cervical spinal fusion: Code(s): Z98.1 - Arthrodesis status Category: Medical Plan: Dear colleague, On 05/09/2024 I saw for follow-up Minna Clifford. She is status post anterior diskectomy and fusion C5-6 in December for cervical myelopathy and left cervical radiculopathy. At that time, we discussed that in the future a left C8 nerve root decompression may be required if the C5-6 decompression was not addressing the cervical radiculopathy. She comes back today stating that since she is experiencing pain in the scapula radiating down the elbow and posterior side of her distal arm into the hand. Her 4th and 5th digits are more numb than before. Clinically this resembles a C8 radiculopathy. I obtained flexion-extension x-rays today which showed an intact hardware. I will repeat an MRI of the cervical spine that should determine if she needs the C8 nerve root decompression. She will follow-up with me after the MRI is done. I spent 20 minutes in his consult to discuss plan and to order the MRI. Erik Alas MD, PhD Spine Fellowship Trained Neurosurgeon Director, [facility] (2) Cervical radiculopathy: Code(s): M54.12 - Radiculopathy, cervical region Category: Medical Plan g Orders: Orders XR cervical spine 4V Today Z98.1 - Arthrodesis status MR cervical spine wo con Today M54.12 - Radiculopathy, cervical region, Z98.1 - Arthrodesis status Coding Level of Care Code Est Pt Level 3 (83513) Diagnoses S/P cervical spinal fusion Z98.1 Cervical radiculopathy M54.12
--- OUTSIDE RECORDS SUMMARY | 2024-05-09 16:22 | XMS_ITS | Data Portability ---
Author Organization GABRIELA Mason [facility], [address] Address [address] [place] [address] Assessment No assessment recorded. Plan of Treatment Reminders Order Date Submit Date Provider Last Modified By Organization Details Last Modified Time Details Appointments None recorded. Lab urinalysis , dipstick 2022 023 [email or web address] [address], [address] [place], [address], 15:10:40 Referral None recorded. Procedures None recorded. Surgeries None recorded. Imaging XR, chest + abdomen 2022 023 [email or web address] [facility], [address] [place] [address], [address], 15:13:47 Medication Orders None recorded. Patient TargetsNo targets recorded. Patient Instructions Encounter Date Encounter Id Patient Instructions Last Modified By Organization Details Last Modified Time 08/14/2022 [id number] constipation: care instructions [email or web address] Not available 08/14/2022 15:11:44 You can take ove r the counter tylenol or ibuprofen per package instructions for the pain. See printed instructions. Follow-up with your doctor as scheduled later this month. Seek Emergency Medical evaluation for any worsening symptoms. [email or web address] Not available 08/17/2022 14:48:50 Reason for Referral None Reported. Results Created Date Observation Date Name Description Value Unit Range Abnormal Flag Note LastModifiedBy Organization Detail LastModifiedTime 08/15/19 23 08/14/2022 urina lysis , dipst ick Unknown Analyte Normal = light yellow Not Available [id number] [place], [address], 08/14/2022 12:47:08 08/15/1908/14/2022 urina lysis , dipst ick Unknown Analyte Yellow Not Available [id number] [place] [address] [address] [place], [address], 08/14/2022 12:47:08 08/15/19 23 08/14/2022 urina lysis , dipst ick Unknown Analyte Normal = clear Not Available [address] [place], [address], 08/14/2022 12:47:08 08/15/1908/14/2022 urina lysis , dipst ick Unknown Analyte Clear Not Available [id number] [place] [address] [address] [place], [address], 08/14/2022 12:47:08 08/15/1908/14/2022 urina lysis , dipst ick Unknown Analyte Normal = negati ve Not Available [address] [place], [address], 08/14/2022 12:47:08 08/15/19 23 08/14/2022 urina lysis , dipst ick Unknown Analyte Negati ve Not Available [address] [place], [address], 08/14/2022 12:47:08 08/15/19 23 08/14/2022 urina lysis , dipst ick Unknown Analyte Normal = Negati ve Not Available [address] [place], [address], 08/14/2022 12:47:08 08/15/19 23 08/14/2022 urina lysis , dipst ick Unknown Analyte Negati ve Not Available [address] [place], [address], 08/14/2022 12:47:08 08/15/1908/14/2022 urina lysis , dipst ick Unknown Analyte Normal = Negati ve Not Available [address] [place], [address], 08/14/2022 12:47:08 08/15/1908/14/2022 urina lysis , dipst ick Unknown Analyte Negati ve Not Available [address] [place], [address], 08/14/2022 12:47:08 08/15/1908/14/2022 urina lysis , dipst ick Unknown Analyte Normal = 1.010, 1.015, 1.020 Not Available [address] [place], [address], 08/14/2022 12:47:08 08/15/1908/14/2022 urina lysis , dipst ick Unknown Analyte 1.020 Not Available [facility] [address] [place], [address], 08/14/2022 12:47:08 08/15/1908/14/2022 urina lysis , dipst ick Unknown Analyte Normal = Negati ve Not Available [address] [place], [address], 08/14/2022 12:47:08 08/15/1908/14/2022 urina lysis , dipst ick Unknown Analyte Negati ve Not Available [address] [place], [address], 08/14/2022 12:47:08 08/15/19 23 08/14/2022 urina lysis , dipst ick Unknown Analyte Normal = 6.5, 7.0, 7.5, 8.0 Not Available [address] [place], [address], 08/14/2022 12:47:08 08/15/19 23 08/14/2022 urina lysis , dipst ick Unknown Analyte 5.5 Not Available [facility] [address] [place], [address], 08/14/2022 12:47:08 08/15/1908/14/2022 urina lysis , dipst ick Unknown Analyte Normal = Negati ve Not Available [address] [place], [address], 08/14/2022 12:47:08 08/15/19 23 08/14/2022 urina lysis , dipst ick Unknown Analyte Negati ve Not Available [address] [place], [address], 08/14/2022 12:47:08 08/15/19 23 08/14/2022 urina lysis , dipst ick Unknown Analyte Normal = 0.2, 1.0 Not Available [address] [place], [address], 08/14/2022 12:47:08 08/15/19 23 08/14/2022 urina lysis , dipst ick Unknown Analyte 0.2 E.U./d L Not Available [address] [place], [address], 08/14/2022 12:47:08 08/15/19 23 08/14/2022 urina lysis , dipst ick Unknown Analyte Normal = Negati ve Not Available [address] [place], [address], 08/14/2022 12:47:08 08/15/1908/14/2022 urina lysis , dipst ick Unknown Analyte Negati ve Not Available [address] [place], [address], 08/14/2022 12:47:08 08/15/1908/14/2022 urina lysis , dipst ick Unknown Analyte Normal = Negati ve Not Available [address] [place], [address], 08/14/2022 12:47:08 08/15/19 23 08/14/2022 urina lysis , dipst ick Unknown Analyte Negati ve Not Available [address] [place], [address], 08/14/2022 12:47:08 08/15/1908/14/2022 XR, chest + abdom en No observ ation record ed. [id number] [facility] [address] [place] [address], [address], 08/14/2022 16:00:29 Result Notes None recorded. Problems Name Problem SNOMED Code Status Onset Date Resolution Date Notes Provider Name and Address Organization Details Recorded Time Rheumatoid arthritis 06124074 Active 2022 RIRI DEPINTO null, PA - [facility] 3 12:52:18 Hypertensive disorder 41978948 Active 2022 RIRI DEPINTO null, PA - [facility] 12:52:47 Hypercholestero lemia 29538461 Active 2022 RIRI DEPINTO null, PA - [facility] 3 12:52:52 Problem Notes None recorded. Procedures Surgical History Date Name Laterality Status Provider Name and Address Organization Details Recorded Time 08/15/19 21 kidney excision completed RIRI DEPINTO PA - [facility] 08/14/2022 12:55:48 08/15/19 08 Appendectomy completed RIRI DEPINTO PA - [facility] 08/14/2022 12:55:35 total hysterectomy with removal of both tubes and ovaries completed RIRI DEPINTO PA - [facility] 08/14/2022 12:55:29 Imaging Results Imaging Date Name Status LastModified by Organiz ation Details LastModified Time 08/14/2022 XR, chest + abdomen completed [id number] [facility] [address] [facility] [place], [address], 08/14/2022 16:00:29 Procedure Notes None recorded. Medical Equipment None Reported. Allergies Allergen ID Allergen Name Allergen Category Reaction Reaction Severity Criticality Documentation Date Start Date Code Code System Note Provider Name and Address Organization Details Recorded Time 614689 erythromy edis medicatio n swelling Not available Not available 08/14/2022 4053 RxNorm RIRI DEPINTO null, PA - [facility] 12:49:36 419445 Feldene medicatio n swelling Not available Not available 08/14/2022 59872 8 RxNorm RIRI DEPINTO null, PA - [facility] 12:49:49 070163 Substance with sulfonami de structure and antibacte rial mechanism of action (substanc e) medicatio n dyspnea Not available Not available 08/14/2022 60450 8003 SNOMED RIRI DEPINTO null, PA - [facility] 12:50:00 145155 lactose food,medi cation Not available Not available Not available 08/14/2022 6211 RxNorm RIRI DEPINTO null, PA - [facility] 12:50:17 208052 oxycodone medicatio n swelling Not available Not available 08/14/2022 7804 RxNorm Yasemin Derase null, PA - [facility] 14:02:54 046286 hydrocodo ne Not available swelling Not available Not available 08/14/2022 5489 RxNorm Yasemin Romo chiquis PA - [facility] 14:02:46 Medications Name Sig Start Date Stop Date Status Note LastModified by Organization Details LastModified Time atorvastati n 80 mg tablet TAKE 1 TABLET BY MOUTH EVERY DAY active Not Available Not Available No t Available clopidogrel 75 mg tablet TAKE 1 TABLET BY MOUTH EVERY DAY active Not Available Not Available No t Available methotrexat e sodium 2.5 mg tablet TAKE 3 TABLETS BY MOUTH ONCE WEEKLY active Not Available Not Available No t Available amlodipine 10 mg tablet TAKE 1 TABLET BY MOUTH EVERY DAY active Not Available Not Available No t Available folic acid 1 mg tablet TAKE 1 TABLET BY MOUTH EVERY DAY active Not Available Not Available No t Available fluticasone propionate 50 mcg/actuati on nasal spray,suspe nsion TAKE2 SPRAYS EACH NOSTRIL ONCE A DAY FOR 10 DAYS. 08/14 completed Not Available Not Available Not Available amoxicillin 500 mg-potassiu m clavulanate 125 mg tablet TAKE 1 TABLET BY MOUTH TWICE A DAY FOR 10 DAYS 08/14 completed Not Available Not Available Not Available aspirin active Not Available Not Avail able Not Available calcium active Not Available Not Avail able Not Available iron active Not Available Not Availa ble Not Available BinaxNOW COVID-19 Ag Self Test kit TEST DIRECTED TODAY 08/14 completed Not Available Not Available Not Available Vitals Date Recorded Body height Provider Name an d Address Organization Details Last Updated DateTime 08/14/2022 160.02 cm RIRI DEPINTO PA - [facility] 0 08/14/2022 12:48:22 Date Recorded Body mass index (BMI) Body weight Provider Name and Address Organization Details Last Updated DateTime 08/14/2022 27.5 kg/m2 79140.82 g RIRI DEPINTO PA - [facility] 08/14/2022 12:48:25 Date Recorded Pain severity - 0-10 verbal numeric rating [Score] - Reported Provider Name and Address Organization Details Last Updated DateTime 08/14/2022 0 RIRI DEPINTO PA - [facility] 0 08/14/2022 12:48:40 Date Recorded Respiratory rate Provider Name a nd Address Organization Details Last Updated DateTime 08/14/2022 18 /min RIRI DEPINTO PA - [facility] 0 08/14/2022 12:56:11 Date Recorded Oxygen saturation Oxygen saturation in Arterial blood by Pulse oximetry Provider Name and Address Organization Details Last Updated DateTime 08/14/2022 100 % 100 % RIRI LOWE PA - [facility] 08/14/2022 12:57:16 Date Recorded Heart rate Provider Name an d Address Organization Details Last Updated DateTime 08/14/2022 74 /min RIRI LOWE PA - [facility] 0 08/14/2022 12:57:18 Date Recorded Body temperature Provider Name a nd Address Organization Details Last Updated DateTime 08/14/2022 97.2 [degF] RIRI LOWE PA - [facility] 08/14/2022 12:57:24 Date Recorded Systolic blood pressure Diastolic blood pressure Provider Name and Address Organization Details Last Updated DateTime 08/14/2022 143 mm[Hg] 74 mm[Hg] RIRI LOWE PA - [facility] 08/14/2022 12:57:13 Social History Question Answer Notes LastModified by [employer] ion Details LastModified Time Tobacco Smoking Status Never Smoker RIRI LOWE null, PA - [facility] 08/14/2022 12:53:45 What Is Your Level Of Alcohol Consumption? Occasional Information not available 08/14/2022 How Many Times Per Week Do You Consume Alcohol? Less Than 1 Time Per Week Information not available 08/14/2022 Do You Use Any Illicit Or Recreational Drugs? No Information not available 08/14/2022 Have You Recently Traveled Abroad? No Information not available 08/14/2022 Do You Or Have You Ever Used Any Other Forms Of Tobacco Or Nicotine? No Information not available 08/14/2022 Sex: Unknown Functional Status None recorded. Mental Status None recorded. Family History Relationship Description Onset Age of this Age Resolved Age Notes LastModified by Organization Details LastModified Time Father No current problems or disability Not available 08/14 12:53:13 Mother No current problems or disability Not available 08/14 12:53:13 Medical History No medical history recorded. Gynecological History Statement/Question Response LMP N/A Obstetrics History GPAL:G 0 P 0 0 0 0 Immunizations Vaccine Type Date Status Note Provider Nam e and Address Organization Details Recorded Time zoster recombinant 2 completed RIRI DEPINTO null, PA - [facility] 08/14/2022 12:48:53 zoster recombinant 2 completed RIRI DEPINTO null, PA - [facility] 08/14/2022 12:48:53 zoster recombinant 1 completed RIRI DEPINTO null, PA - [facility] 08/14/2022 12:48:53 COVID-19, mRNA, LNP-S, PF, 30 mcg/0.3 mL dose 1 completed RIRI DEPINTO null, PA - [facility] 08/14/2022 12:48:53 COVID-19, mRNA, LNP-S, PF, 30 mcg/0.3 mL dose 1 completed RIRI DEPINTO null, PA - [facility] 08/14/2022 12:48:53 COVID-19, mRNA, LNP-S, PF, 30 mcg/0.3 mL dose 1 completed RIRI DEPINTO null, PA - [facility] 08/14/2022 12:48:53 COVID-19, mRNA, LNP-S, PF, 30 mcg/0.3 mL dose 1 completed RIRI DEPINTO null, PA - [facility] 08/14/2022 12:48:53 COVID-19, mRNA, LNP-S, PF, 30 mcg/0.3 mL dose, griselda-sucrose 2 completed RIRI DEPINTO null, PA - [facility] 08/14/2022 12:48:53 COVID-19, mRNA, LNP-S, bivalent, PF, 30 mcg/0.3 mL dose 2 completed RIRI DEPINTO null, PA - [facility] 08/14/2022 12:48:53 pneumococcal polysaccharide PPV23 3 completed RIRI DEPINTO null, PA - [facility] 08/14/2022 12:48:53 Tdap 8 completed RIRI DEPINTO null, PA - [facility] 08/14/2022 12:48:53 Pneumococcal conjugate PCV 13 5 completed RIRI DEPINTO null, PA - [facility] 08/14/2022 12:48:53 Influenza, high-dose, trivalent, PF 1 completed RIRI DEPINTO null, PA - [facility] 08/14/2022 12:48:53 Influenza, high-dose, trivalent, PF 8 completed RIRI DEPINTO null, PA - [facility] 08/14/2022 12:48:53 Influenza, high-dose, trivalent, PF 9 completed RIRI DEPINTO null, PA - [facility] 08/14/2022 12:48:53 Influenza, split virus, trivalent, preservative 6 completed RIRI DEPINTO null, PA - [facility] 08/14/2022 12:48:53 Influenza, split virus, trivalent, preservative 2 completed RIRI DEPINTO null, PA - [facility] 08/14/2022 12:48:53 Influenza, split virus, trivalent, preservative 3 completed RIRI DEPINTO null, PA - [facility] 08/14/2022 12:48:53 Influenza, split virus, trivalent, preservative 4 completed RIRI DEPINTO null, PA - [facility] 08/14/2022 12:48:53 Influenza, split virus, trivalent, preservative 0 completed RIRI DEPINTO null, PA - [facility] 08/14/2022 12:48:53 Influenza, split virus, trivalent, PF 0 completed RIRI DEPINTO null, PA - [facility] 08/14/2022 12:48:53 Td (adult), 2 Lf tetanus toxoid, preservative free, adsorbed 8 completed RIRI DEPINTO null, PA - [facility] 08/14/2022 12:48:53 Past Encounters Encounter ID Performer Location Encounter Start Date Encounter Closed Date Diagnosis/Indication Diagnosis SNOMED-CT Code Diagnosis ICD10 Code Diagnosis Note [id number] [address] [facility] [place] [address] 07/05/2020 16:48:47 07/05/2020 18:15:44 [id number] [address] [facility] [place] [address] 10/22/2018 18:32:01 10/22/2018 20:03:54 [id number] [address] [place] [address] 07/08/2019 08:11:26 07/08/2019 09:03:57 [id number] [address] [place] [address] 12/04/2015 17:11:31 12/04/2015 17:54:15 [id number] [address] [facility] [place] [address] 06/18/2018 09:49:11 06/18/2018 11:06:51 [id number] MARGARITO STEIN MD [address] [facility] [place] [address] 08/14/2022 12:14:45 08/14/2022 15:13:46 Right lower quadrant pain 186518335 R10.31 Constipation 83440958 K5 9.00 Patient presents with constipati on. Recommend increasing oral fluids with non-caffei nated, non-alcoho lic beverages. Increase daily dietary fiber. May drink prune juice or pear juice to initiate bowel regularity and then decrease as needed to maintain a once daily or every other day bowel habit. Tylenol or Motrin may be used as needed for cramping. Follow up as needed, or sooner if new symptoms develop. Health Concerns Section Related Observation LastModified by Organization Detai ls LastModified Time None Recorded Concern Status LastModified by Organization Details LastModified Time None Recorded Advance Directives Directive None Recorded Payers Encounter Date Sequence Insurance Name Policy Number Policy Sullivan Covered Member ID Sullivan Member ID Guarantor Name 06/18/2018 1 [place] [facility] Minna Clifford [id number] Minna Clifford 06/18/2018 2 [employer]ICARE - [place] - MEDICARE EXTENSION (INDEMNITY) [id number] Ancelmo Clifford [id number] Minna Clifford 10/22/2018 1 [place] [facility] Minna Clifford [id number] Minna Clifford 10/22/2018 2 [employer] - [place] - MEDICARE EXTENSION (INDEMNITY) [id number] Ancelmo Clifford [id number] Minna Clifford 07/08/2019 1 [place] [facility] Minna Clifford [id number] Minna Clifford 07/08/2019 2 [employer] - [place] - MEDICARE EXTENSION (INDEMNITY) [id number] Ancelmo Clifford [id number] Minna Clifford 07/05/2020 1 [place] [facility] Minna Clifford [id number] Minna Clifford 07/05/2020 2 [employer] - [place] - MEDICARE EXTENSION (INDEMNITY) [id number] Ancelmo Clifford [id number] Minna Clifford 08/14/2022 1 [place] [facility] Minna Clifford [id number] Minna Clifford 08/14/2022 2 [employer]IC[employer] - [place] - MEDICARE EXTENSION (INDEMNITY) [id number] Ancelmo Daly Clifford [id number] Minna Daly Clifford Notes Date Note Type Note Provider Name and Address Organization Details Recorded Time 08/14/2022 text/html Abdominal Pain UCReported bypatient.source of patient informationpatient Location:RLQ; suprapubic; migration; She has a history of an appendectomy Quality:pain;bloating;c ramping;aching Severity:moderate Duration:started: (last night) Onset/Timing:wax/wane Context:no travel Modifying Factors:nothing gives relief; nothing makes it worse Associated Symptoms:no fever; no change in bowel/bladder habits 76 year old female presents with Right-sided abdominal pain since last night. There was no pain before last night. She describes the pain as shifting from left to right. She has no change in appetite no nausea, vomiting, diarrhea, fever, and no headache. Her last bowel movement was this morning. She has had one to two bowel movements over the last 2 days which is her normal. No new foods, new medication,recent travel, recent exposure to anyone with similar symptoms. She states that she has had one kidney removed and feels that her organs are shifting to fill the space where the other kidney was. she is being followed up by her doctor in one month but is concerned right now for the possibility of a twisted colon . She also states she has already had her appendix removed. MARGARITO STEIN MD [address] [place], [address], PA - [facility] 08/17/2022 14:50:13 OBGyn Episode No OBEpisode recorded.
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
== END 2024-05-09 15:33 | disposition home or self-care (01) ==
PROVIDERS: PCP Internal Medicine; Visit Provider Neurological Surgery
DX: Z98.1 Arthrodesis status (principal); M54.12 Radiculopathy, cervical region
CPT/HCPCS: 99213

== ENCOUNTER 2024-05-09 14:01 | Outpatient (REF) | payer MEDICARE, OTHER, SELFPAY ==
--- NOTE | ~2024-05-09 | XR_ITS ---
CLINICAL HISTORY: Z98.1 - Arthrodesis status 4 views cervical spine Comparison: None Findings: No acute fracture. Degenerative changes of the cervical spine with osteophyte formation and narrowing of the C4-C5, C6-C7 intervertebral disc space. Status post fusion of the C5-C6. No evidence of instability on the flexion and extension images. Prevertebral soft tissues within normal limits. IMPRESSION: Intact fusion hardware. No evidence of instability. This document has been electronically signed by: Jerzy Armendariz MD on 05/10/2024 18:47:26
--- OUTSIDE RECORDS SUMMARY | 2024-05-09 17:10 | XMS_ITS | Clinical Summary ---
Author Organization [facility] it Address [address] [place] [address] Care Team Providers Care Commodities Clerk Name Role Phone SheebaKeke Primary Care Provider [phone] Allergies Active Allergy Reactions Criticality Noted Date [...] right nephrectomy (09/2020)and partial uretrectomy Follows with [facility] H/O right nephrectomy 10/23/2020 Kidney stone [...] Due Influenza, Unspecified 02/15/2023 PPD Test 10/28/2000,10/26/2000 [employer] SARS-CoV-2 COVID-19, mRNA, LNP-S, preservative free 08/23/2021,02/09/2021 [...] fibroids abd total hyst COLONOSCOPY 12/13/2007 PROCEDURE: [place] COLONOSCOPY STOMA DX INCLUDING COLLJ SPEC SPX; COMMENT: Up to cecum, good preparation, mild diverticulosis, sigmoid polyp removed:Tubular adenoma COLONOSCOPY 03/20/2013 PROCEDURE: [place] COLONOSCOPY STOMA DX INCLUDING COLLJ SPEC SPX; COMMENT: tics; repeat in 5 yrs BREAST SURGERY Bilateral PROCEDURE: [place] UNLISTED PROCEDURE BREAST; COMMENT: bilat cysts removed [...] kidney disease) stage 4, GFR 15-29 ml/min ([facility]/HCC) 11/27/2013 DX:CKD (chronic kidney dise ase) stage 4, GFR 15-29 ml/min ([facility]) Vertigo DX:Vertigo Family History Medical History Relation [...] AM EDT Office Visit Internal Medicine - [address] [phone] Kaleb Sellers NP [address] [place] [address] 10/16/2024 9:00 AM EDT Office Visit Nephrology - [address] [phone] Kayden Reynolds MD [address] [phone] Health Maintenance Due Date Last Done Comments [...] AM EDT Narrative 11/07/2023 12:06 PM EDT [facility] Diagnostic Imaging Department [address] [place], [place] [id number] Patient: ??MINNA RODRIGUEZ ?/Age/Sex: 1945 - 77 - F Unit#: ??[id number] ? Location/Status: ??SPDIMAM/REG CLI ? Mnemonic/Ordering Site: ??DIGSC/SPMAM Ordering Physician: ??KALEB SELLERS NP [facility] Screening Digital - 11/07/23 - 954 Report Status:Signed EXAM: [facility] Screening Digital EXAM DATE AND TIME: 11/07/2023 9:56 AM HISTORY: ??Screening. Previous left breast biopsy, pathology benign. Mother had breast carcinoma. COMPARISON: ??11/04/21, 07/15/20, 03/27/19 TECHNIQUE: Bilateral digital breast tomosynthesis was performed in the CC and MLO projections. Computer aided detection with [employer] 3D 3.1 was employed. TISSUE DENSITY: b. [...] Procedure Note Estela Rose MD - 01/25/2024 [facility] Diagnostic Imaging Department [address] [place] [address] Patient: MINNA RODRIGUEZ Addy /Age/Sex: 1945 - 77 - F Unit#: [id number] [facility]/Ordering Site: [facility] Ordering Physician: KALEB SELLERS NP [facility] Screening Digital - 11/07/23 - 0955 Report Status:Signed EXAM: [facility] Screening Digital EXAM DATE AND TIME: 11/07/2023 9:56 AM HISTORY: Screening. Previous left breast biopsy, pathology benign. Motherhad breast carcinoma. COMPARISON: 11/04/21, 07/15/20, 03/27/19 TECHNIQUE: Bilateral digital breast tomosynthesis was performed in the CCand MLO projections. Computer aided detection with [employer] 3D 3.1was employed. TISSUE DENSITY: b. There [...] (World Health Organization Fracture Risk Assessment) The [facility] Department of Internal Medicine recommends using National [...] alternative screening schedule based on zo Dyer., [facility] April 29, 2011 for patients [...] years. (World HealthOrganization Fracture Risk Assessment) The [facility] Department of Internal Medicine recommendsusing National Osteoporosis [...] alternative screening schedule based on zo Dyer., [facility] for patients with osteopenia [...] DXA PROCEDURES * (ABNORMAL) Lipid panel (02/15/2023) [facility] Triglycerides 75 mg/dL Cholesterol 198 mg/dL HDL 76 mg/dL LDL Cholesterol 107(A) 0 - 100 mg/dL Blood Venous blood specimen / Unknown Historical Provider LAB BLOOD ORDERAB LES * Colonoscopy (04/24/2019) [facility] Colonoscopy ABNORMAL, REPEAT IN 5 YEARS Anatomical Region Laterality Modality Other Historical Provider MD DARREN CASON E * Hepatitis C Screening (02/12/2011) [facility] Hepatitis C Screening NEGATIVE NEGATIVE - POSITIVE Historical Provider MD DARREN Corrales from Last 3 Months or Most Recently Relevant to Health Maintenance Care Teams Commodities Clerk Relationship Specialty Start Date End Date Keke Aly DO [address] [place] [id number] PCP - General 11/16/22
== END 2024-05-09 14:02 | disposition home or self-care (01) ==
LOC: HO.HOSX 14:01
PROVIDERS: PCP Internal Medicine; Visit Provider Neurological Surgery
DX: M54.12 Radiculopathy, cervical region (principal); Z98.1 Arthrodesis status
CPT/HCPCS: 72050; 99212

== ENCOUNTER → 2024-05-09 15:10 | Outpatient (BNV) | payer MEDICARE, OTHER, SELFPAY | PROVIDERS: PCP Internal Medicine; Visit Provider Nuclear Medicine | DX: Z98.1 Arthrodesis status (principal); M25.78 Osteophyte, vertebrae | CPT/HCPCS: 72050 ==

== ENCOUNTER 2024-05-11 15:01 | Outpatient (AMB) | payer MEDICARE, OTHER, SELFPAY ==
--- OUTSIDE RECORDS SUMMARY | 2024-05-11 15:05 | XMS_ITS | Clinical Summary ---
Author Organization [facility] Address [address] [place] [address] Phone Care Team Providers Care Electrician Telephone Name Role Phone Keke Aly DO Primary Care Provider [phone] Allergies Active Allergy Reactions Criticality Noted Date [...] right nephrectomy (09/2020)and partial uretrectomy Follows with [facility] H/O right nephrectomy 10/23/2020 Kidney stone [...] 1mg daily Lab in November and January Encounters Date Type Department Care Team Description 05/10/2024 6:37 PM EST - 05/10/2024 11:59 PM EST Hospital Encounter [facility] MRI [address] [place] [address] Radiculopathy, cervical region Discharge Disposition: Home or Self Care from Last 3 Months Immunizations Name Administration Dates Next Due Influenza, Unspecified 02/15/2023 PPD Test 10/28/2000,10/26/2000 [employer] SARS-CoV-2 COVID-19, mRNA, LNP-S, preservative free 08/23/2021,02/09/2021 [...] fibroids abd total hyst COLONOSCOPY 12/13/2007 PROCEDURE: [place] COLONOSCOPY STOMA DX INCLUDING COLLJ SPEC SPX; COMMENT: Up to cecum, good preparation, mild diverticulosis, sigmoid polyp removed:Tubular adenoma COLONOSCOPY 03/20/2013 PROCEDURE: [place] COLONOSCOPY STOMA DX INCLUDING COLLJ SPEC SPX; COMMENT: tics; repeat in 5 yrs BREAST SURGERY Bilateral PROCEDURE: [place] UNLISTED PROCEDURE BREAST; COMMENT: bilat cysts removed [...] kidney disease) stage 4, GFR 15-29 ml/min ([facility]) 11/27/2013 DX:CKD (chronic kidney dise ase) stage 4, GFR 15-29 ml/min ([facility]) Vertigo DX:Vertigo Family History Medical History Relation [...] AM EDT Office Visit Internal Medicine - [address] [phone] Kaleb Sellers NP [address] [place] [id number] 10/16/2024 9:00 AM EDT Office Visit Nephrology - [address] [phone] Kayden Reynolds MD [address] [phone] Health Maintenance Due Date Last Done Comments Depression Screening 03/20/2022 Falls Risk Assessment 03/20/2022 Medicare Annual Wellness Visit 03/20/2022 Social Influencers of Health Screening 03/20/2022 RSV Immunization Patients 60+ Years Old (1 - 1-dose 75+ series) 12/06/2022 Hypertension/CHF/CAD Annual BMP Blood Test 09/25/2024 09/26/2023 DTaP,Tdap,and Td Vaccines (3 - Td or Tdap) 01/26/2028 01/25/2018, 08/30/2007 Cholesterol Screening (Lipid Panel) 02/16/2028 02/15/2023 Colorectal Cancer Screening: Colonoscopy 04/24/2029 04/24/2019 Osteoporosis Screening (Bone Density Screening) 10/19/2033 10/20/2023, 10/20/2023, 08/13/2020, Additional history exists Hepatitis C Screening Completed 02/12/2011 Pneumococcal Vaccine: 65+ Years Completed 07/05/2014, 02/16/2013 Zoster Vaccines Completed 05/18/2021, 04/12, 02/23/2021 Breast Cancer Screening Discontinued 11/07/19 24, 11/04/2021, 07/16/2020, Additional history exists Influenza Vaccine Completed 01/20/2024, , 12/28/2022, Additional history exists COVID-19 Vaccine Completed 01/28/2024, 05/2022, 02/15/2022, Additional history exists HIB Vaccines Aged Out [...] Procedure Name Priority Date/Time Associated Diagnosis Comments MR CERVICAL SPINE WO CONTRAST Routine 05/10/2024 8:12 PM EST Radiculopathy, cervical region KALPESH SCREENING DIGITAL Routine 11/07/2023 12:06 PM EDT Encounter for screening mammogram for malignant neoplasm of breast DXA BONE DENSITY STUDY 1+ SITS AXIAL SKEL Routine 10/20/2023 8:45 AM EDT Encounter for screening for osteoporosis LIPID PANEL Routine 02/15/2023 COLONOSCOPY Routine 04/24/2019 HEPATITIS C SCREENING Routine 02/12/2011 from Last 3 Months or Most Recently Relevant to Health Maintenance Results * MR Cervical Spine wo Contrast (05/10/2024 8:12 PM EST) Anatomical Region Laterality Modality C-spine, Spine Magnetic Resonan ce 05/11/2024 1:14 PM EST Impressions 05/11/2024 1:39 PM EST Right foraminal protrusion at C7-T1 resulting in severe right foraminal stenosis and mass effect upon the exiting right C8 nerve. Multilevel degenerative and postsurgical changes throughout the cervical spine with moderate spinal canal stenosis at C4-5 and C7-T1. ??Severe left foraminal stenosis at C4-5. ??Mild mass affect upon the cord at several levels without cord signal abnormality. -------- FINAL REPORT -------- Dictated By: RODNEY NOVAK Dictated Date: 05/11/2024 13:14 ET Assigned Physician: RODNEY NOVAK Reviewed and Electronically Signed By: RODNEY NOVAK Signed Date: 05/11/2024 13:39 ET Workstation ID: [id number] Transcribed By: Self Edit Transcribed Date: 05/11/2024 13:14 ET Narrative 05/11/2024 1:39 PM EST PROCEDURE: Cervical spine MRI INDICATION: Pain, radiculopathy TECHNIQUE: Multiplanar, multisequence MRI of the Cervical spine Without contrast. COMPARISON: ??No priors available. FINDINGS: Reversal the normal cervical lordosis centered at C5-C6, likely degenerative and/or positional. Anterior discectomy and fusion at C5-6. No fracture or suspicious marrow replacing lesion. Multilevel degenerative loss of normal disc height and signal with associated degenerative endplate spurring, most pronounced at C4-5 and C7-T1. Multilevel cervical facet arthritis, most pronounced on the left at C3-4, C4-5, and C7-T1. No cord signal abnormality. ??No epidural collection or mass is seen within the spinal canal. Paraspinal muscles are within normal limits. ??Foramen magnum is normal. Findings by level: C2-C3: Small central protrusion. ??No foraminal or spinal canal stenosis. C3-C4: Central protrusion resulting in mass effect upon the ventral cord and mild spinal canal stenosis. ??Left uncovertebral spurring and facet arthropathy resulting in moderate left foraminal stenosis. ??No right foraminal stenosis.. C4-C5: Posterior disc osteophyte complex with right paracentral protrusion resulting in moderate spinal canal stenosis and effacement of the right ventral cord. ??Left greater than right uncovertebral spurring and facet arthropathy resulting in severe left and no right foraminal stenosis. C5-C6: Left uncovertebral spur results in mild left foraminal stenosis. ??Eccentric left posterior osteophytes with prior anterior discectomy and fusion. ??Moderate spinal canal stenosis with effacement of the left ventral cord. ??No right foraminal stenosis C6-C7: Posterior disc osteophyte complex with left greater than right uncovertebral spurring. ??Moderate left and mild right foraminal stenosis. ??Mild spinal canal stenosis. C7-T1: Posterior disc osteophyte complex with bilateral facet arthropathy and posterior ligamentous hypertrophy. ??Diffuse disc bulge with superimposed right foraminal protrusion contacting the exiting right C8 nerve. ??Severe right and moderate left foraminal stenosis. ??Moderate spinal canal stenosis Procedure Note Rodney Novak MD - 05/11/2024 PROCEDURE: Cervical spine MRI INDICATION: Pain, radiculopathy TECHNIQUE: Multiplanar, multisequence MRI of the Cervical spine Withoutcontrast. COMPARISON: No priors available. FINDINGS: Reversal the normal cervical lordosis centered at C5-C6, likelydegenerative and/or positional. Anterior discectomy and fusion at C5-6. No fracture or suspicious marrow replacing lesion. Multilevel degenerative loss of normal disc height and signal withassociated degenerative endplate spurring, most pronounced at C4-5 andC7-T1. Multilevel cervical facet arthritis, most pronounced on the left at C3-4,C4-5, and C7-T1. No cord signal abnormality. No epidural collection or mass is seen withinthe spinal canal. Paraspinal muscles are within normal limits. Foramen magnum is normal. Findings by level: C2-C3: Small central protrusion. No foraminal or spinal canal stenosis. C3-C4: Central protrusion resulting in mass effect upon the ventral cordand mild spinal canal stenosis. Left uncovertebral spurring and facetarthropathy resulting in moderate left foraminal stenosis. No rightforaminal stenosis.. C4-C5: Posterior disc osteophyte complex with right paracentral protrusionresulting in moderate spinal canal stenosis and effacement of the rightventral cord. Left greater than right uncovertebral spurring and facetarthropathy resulting in severe left and no right foraminal stenosis. C5-C6: Left uncovertebral spur results in mild left foraminal stenosis.Eccentric left posterior osteophytes with prior anterior discectomy andfusion. Moderate spinal canal stenosis with effacement of the leftventral cord. No right foraminal stenosis C6-C7: Posterior disc osteophyte complex with left greater than rightuncovertebral spurring. Moderate left and mild right foraminal stenosis.Mild spinal canal stenosis. C7-T1: Posterior disc osteophyte complex with bilateral facet arthropathyand posterior ligamentous hypertrophy. Diffuse disc bulge withsuperimposed right foraminal protrusion contacting the exiting right [id number]. Severe right and moderate left foraminal stenosis. Moderatespinal canal stenosis IMPRESSION: Right foraminal protrusion at C7-T1 resulting in severe right foraminalstenosis and mass effect upon the exiting right C8 nerve. Multilevel degenerative and postsurgical changes throughout the cervicalspine with moderate spinal canal stenosis at C4-5 and C7-T1. Severe leftforaminal stenosis at C4-5. Mild mass affect upon the cord at severallevels without cord signal abnormality. -------- FINAL REPORT -------- Dictated By: RODNEY NOVAK Dictated Date: 05/11/2024 13:14 ET Assigned Physician: RODNEY NOVAK Reviewed and Electronically Signed By: RODNEY NOVAK Signed Date: 05/11/2024 13:39 ET Workstation ID: [id number] Transcribed By: Self Edit Transcribed Date: 05/11/2024 13:14 ET Erik Alas MD [facility] MRI PROCEDURE S * KALPESH SCREENING DIGITAL (11/07/2023 12:06 PM EDT) Anatomical Region Laterality Modality Mammography 11/07/2023 9:24 AM EDT Narrative 11/07/2023 12:06 PM EDT [facility] Diagnostic Imaging Department [address] [place] [id number] Patient: ??MINNA RODRIGUEZ ?/Age/Sex: 1945 - 77 - F Unit#: ??[id number] ? Location/Status: ??SPDIMAM/REG CLI ? Mnemonic/Ordering Site: ??DIGSC/SPMAM Ordering Physician: ??KALEB SELLERS NP [facility] Screening Digital - 11/07/23 - 954 Report Status:Signed EXAM: [facility] Screening Digital EXAM DATE AND TIME: 11/07/2023 9:56 AM HISTORY: ??Screening. Previous left breast biopsy, pathology benign. Mother had breast carcinoma. COMPARISON: ??11/04/21, 07/15/20, 03/27/19 TECHNIQUE: Bilateral digital breast tomosynthesis was performed in the CC and MLO projections. Computer aided detection with XODIS 3D 3.1 was employed. TISSUE DENSITY: b. [...] Procedure Note Estela Rose MD - 01/25/2024 [facility] Diagnostic Imaging Department [address] [place] [address] Patient: MINNA RODRIGUEZ Addy /Age/Sex: 1945 - 77 - F Unit#: [id number] Location/Status: [facility] Mnemonic/Ordering Site: [facility] Ordering Physician: KALEB SELLERS NP [facility] Screening Digital - 11/07/23 - 0955 Report Status:Signed EXAM: [facility] Screening Digital EXAM DATE AND TIME: 11/07/2023 9:56 AM HISTORY: Screening. Previous left breast biopsy, pathology benign. Motherhad breast carcinoma. COMPARISON: 11/04/21, 07/15/20, 03/27/19 TECHNIQUE: Bilateral digital breast tomosynthesis was performed in the CCand MLO projections. Computer aided detection with [employer] 3D 3.1was employed. TISSUE DENSITY: b. There [...] (World Health Organization Fracture Risk Assessment) [facility] Department of Internal Medicine recommends using National [...] alternative screening schedule based on zo Dyer., [facility] April 29, 2011 for patients with osteopenia [...] years. (World HealthOrganization Fracture Risk Assessment) [facility] Medical [facility] Department of Internal Medicine recommendsusing National Osteoporosis [...] FRAX. Optional alternative screening schedule based on danielle Dyer al., [facility] for patients with osteopenia (based on hip BMD T-score) is as follows: * advanced osteopenia (T scores -2.00 to -2.49), BMD testing every year * moderate osteopenia (T scores -1.50 to -1.99), BMD testing every 5years mild osteopenia or normal BMD (T scores -1.50 and higher), BMD testingevery 15 years Kaleb Sellers NP IMG DXA PROCEDURES * (ABNORMAL) Lipid panel (02/15/2023) [facility] Triglycerides 75 mg/dL Cholesterol 198 mg/dL HDL 76 mg/dL LDL Cholesterol 107(A) 0 - 100 mg/dL Blood Venous blood specimen / Unknown Historical Provider LAB BLOOD ORDERAB LES * Colonoscopy (04/24/2019) [facility] Colonoscopy ABNORMAL, REPEAT IN 5 YEARS Anatomical Region Laterality Modality Other Historical Provider MD DARREN Corrales * Hepatitis C Screening (02/12/2011) [facility] Hepatitis C Screening NEGATIVE NEGATIVE - POSITIVE Historical Provider MD DARREN Corrales from Last 3 Months or Most Recently Relevant to Health Maintenance Care Teams Electrician Telephone Relationship Specialty Start Date End Date Keke Aly DO [facility] [place] [address] PCP - General 11/16/22
--- OUTSIDE RECORDS SUMMARY | 2024-05-11 15:05 | XMS_ITS | Encounter Summary ---
Author Organization [facility] Address [address] [place] [address] Care Team Providers Care Cosmetician Apprentice Name Role Phone Keke Aly DO Primary Care Provider [phone] Reason for Referral * Imaging (Routine) - Authorized Specialty Diagnoses / Procedures Referred By Contac t Referred To Contact Radiology Diagnoses Radiculopathy, cervical region Procedures MR Cervical Spine wo Contrast Erik Alas MD [address] [place] [address] [address] [place] [address] [facility] Referral ID Status Reason Start Date Expiration Date V isits Requested Visits Authorized [id number] Authorized 05/10/2024 05/10/2025 1 1 Reason for Visit * Imaging (Routine) - Authorized Specialty Diagnoses / Procedures Referred By Contac t Referred To Contact Radiology Diagnoses Radiculopathy, cervical region Procedures MR Cervical Spine wo Contrast Erik Alas MD [address] [address] [facility] Referral ID Status Reason Start Date Expiration Date V isits Requested Visits Authorized [id number] Authorized 05/10/2024 05/10/2025 1 1 Encounter Details Date Type Department Care Team (Latest Contact Info) Description 05/10/2024 6:37 PM EST - 05/10/2024 11:59 PM EST Hospital Encounter [facility] MRI [address] [place] [id number] Radiculopathy, cervical region Discharge Disposition: Home or Self Care Social History Tobacco Use Types Packs/Day Years Used Date Smoking Tobacco: Never Smokeless Tobacco: Never Alcohol Use Standard Drinks/Week Comments Not Currently 0 (1 standard drink = 0.6 oz pur e alcohol) Sex and Gender Information Value Date Recorded Sex Assigned at Not on file Gender Identity Not on file Sexual Orientation Not on file documented as of this encounter Medications at Time of Discharge Medication Sig Dispensed Refills Start Date End Date acetaminophen (TYLENOL) 500 mg tablet Take 1 tablet (500 mg total) by mouth if needed. amLODIPine (NORVASC) 10 mg tablet Take 1 tablet (10 mg total) by mouth 1 (one) time each day. 09/30/2023 aspirin 81 mg chewable tablet Chew 1 tablet (81 mg total) 1 (one) time each day. atorvastatin (LIPITOR) 80 mg tabletIndications:Hyperli pidemia, unspecified TAKE 1 TABLET BY MOUTH EVERY DAY 90 tablet 1 04/30/2024 calcium carbonate/vitamin D3 (CALCIUM 600 + D,3, ORAL) Take 1 tablet by mouth 1 (one) time each day. cholecalciferol (VITAMIN D-3) 50 mcg (2,000 unit) capsule Take 1 capsule (2,000 Units total) by mouth 1 (one) time each day. folic acid (FOLVITE) 1 mg tablet Take 1 tablet (1,000 mcg total) by mouth 1 (one) time each day. 04/05/2023 methotrexate 2.5 mg tablet Take 3 tablets (7.5 mg total) by mouth 1 (one) time per week 06/11/2021 documented as of this encounter Discharge Disposition Disposition Code Departure Means Destination Home or Self Care documented in this encounter Plan of Treatment Upcoming Encounters Date Type Department Care Team (Late st Contact Info) Description 06/26/2024 9:45 AM EDT Office Visit Internal Medicine - [address] [phone] Quyen López NP [address] [place] [address] 10/16/2024 9:00 AM EDT Office Visit Nephrology - [address] [phone] Kayden Reynolds MD [address] [facility] [address] [place] [phone] documented as of this encounter Procedures Procedure Name Priority Date/Time Associated Diagnosis Comments MR CERVICAL SPINE WO CONTRAST Routine 05/10/2024 8:12 PM EST Radiculopathy, cervical region documented in this encounter Results * MR Cervical Spine wo Contrast [...] abnormality. -------- FINAL REPORT -------- Dictated By: NICOLA NOVAK Dictated Date: 05/11/2024 13:14 ET Assigned Physician: NICOLA NOVAK Reviewed and Electronically Signed By: NICOLA NOVAK Signed Date: 05/11/2024 13:39 ET Workstation ID: [id number] Transcribed By: Self Edit Transcribed Date: 05/11/2024 [...] stenosis. ??Moderate spinal canal stenosis Procedure Note Nicola Novak MD - 05/11/2024 PROCEDURE: Cervical spine [...] right foraminal protrusion contacting the exiting right [id number]. Severe right and moderate left foraminal stenosis. [...] abnormality. -------- FINAL REPORT -------- Dictated By: NICOLA NOVAK Dictated Date: 05/11/2024 13:14 ET Assigned Physician: NICOLA NOVAK Reviewed and Electronically Signed By: NICOLA NOVAK Signed Date: 05/11/2024 13:39 ET Workstation ID: [id number] Transcribed By: Self Edit Transcribed Date: 05/11/2024 13:14 ET Erik Alas MD [facility] MRI PROCEDURE S documented in this encounter Visit Diagnoses Diagnosis Radiculopathy, cervical region Brachial neuritis or radiculitis nos documented in this encounter Care Teams Cosmetician Apprentice Relationship Specialty Start Date End Date Keke Aly DO [address] [place] [address] PCP - General 11/16/22 documented as of this encounter
--- OUTSIDE RECORDS SUMMARY | 2024-05-11 15:05 | XMS_ITS | Data Portability ---
Author Organization GABRIELA Mason [facility], [address] Address [address] [place] [address] Assessment No assessment recorded. Plan of Treatment Reminders Order Date Submit Date Provider Last Modified By Organization Details Last Modified Time Details Appointments None recorded. Lab urinalysis , dipstick 2022 023 [email or web address] [address], [address] [place], [address], 15:10:40 Referral None recorded. Procedures None recorded. Surgeries None recorded. Imaging XR, chest + abdomen 2022 023 [email or web address] [facility], [address] [place] [address], [address], 15:13:47 Medication Orders None recorded. Patient TargetsNo targets recorded. Patient Instructions Encounter Date Encounter Id Patient Instructions Last Modified By Organization Details Last Modified Time 08/14/2022 [id number] constipation: care instructions [id number] Not available 08/14/2022 15:11:44 You can take ove r the counter tylenol or ibuprofen per package instructions for the pain. See printed instructions. Follow-up with your doctor as scheduled later this month. Seek Emergency Medical evaluation for any worsening symptoms. [email or web address] Not available 08/17/2022 14:48:50 Reason for Referral None Reported. Results Created Date Observation Date Name Description Value Unit Range Abnormal Flag Note LastModifiedBy Organization Detail LastModifiedTime 08/15/19 23 08/14/2022 urina lysis , dipst ick Unknown Analyte Normal = light yellow Not Available [id number] [place], [address], 08/14/2022 12:47:08 08/15/1908/14/2022 urina lysis , dipst ick Unknown Analyte Yellow Not Available [id number] [place] [address] [address] [place], [address], 08/14/2022 12:47:08 08/15/19 23 08/14/2022 urina lysis , dipst ick Unknown Analyte Normal = clear Not Available [address] [place], [address], 08/14/2022 12:47:08 08/15/1908/14/2022 urina lysis , dipst ick Unknown Analyte Clear Not Available [id number] [place] [address] [address] [place], [address], 08/14/2022 12:47:08 08/15/1908/14/2022 urina lysis , dipst ick Unknown Analyte Normal = negati ve Not Available [address] [place], [address], 08/14/2022 12:47:08 08/15/19 23 08/14/2022 urina lysis , dipst ick Unknown Analyte Negati ve Not Available [address] [place], [address], 08/14/2022 12:47:08 08/15/19 23 08/14/2022 urina lysis , dipst ick Unknown Analyte Normal = Negati ve Not Available [address] [place], [address], 08/14/2022 12:47:08 08/15/19 23 08/14/2022 urina lysis , dipst ick Unknown Analyte Negati ve Not Available [address] [place], [address], 08/14/2022 12:47:08 08/15/1908/14/2022 urina lysis , dipst ick Unknown Analyte Normal = Negati ve Not Available [address] [place], [address], 08/14/2022 12:47:08 08/15/1908/14/2022 urina lysis , dipst ick Unknown Analyte Negati ve Not Available [address] [place], [address], 08/14/2022 12:47:08 08/15/1908/14/2022 urina lysis , dipst ick Unknown Analyte Normal = 1.010, 1.015, 1.020 Not Available [address] [place], [address], 08/14/2022 12:47:08 08/15/1908/14/2022 urina lysis , dipst ick Unknown Analyte 1.020 Not Available [facility] [address] [place], [address], 08/14/2022 12:47:08 08/15/1908/14/2022 urina lysis , dipst ick Unknown Analyte Normal = Negati ve Not Available [address] [place], [address], 08/14/2022 12:47:08 08/15/1908/14/2022 urina lysis , dipst ick Unknown Analyte Negati ve Not Available [address] [place], [address], 08/14/2022 12:47:08 08/15/19 23 08/14/2022 urina lysis , dipst ick Unknown Analyte Normal = 6.5, 7.0, 7.5, 8.0 Not Available [address] [place], [address], 08/14/2022 12:47:08 08/15/19 23 08/14/2022 urina lysis , dipst ick Unknown Analyte 5.5 Not Available [facility] [address] [place], [address], 08/14/2022 12:47:08 08/15/1908/14/2022 urina lysis , dipst ick Unknown Analyte Normal = Negati ve Not Available [address] [place], [address], 08/14/2022 12:47:08 08/15/19 23 08/14/2022 urina lysis , dipst ick Unknown Analyte Negati ve Not Available [address] [place], [address], 08/14/2022 12:47:08 08/15/19 23 08/14/2022 urina lysis , dipst ick Unknown Analyte Normal = 0.2, 1.0 Not Available [address] [place], [address], 08/14/2022 12:47:08 08/15/19 23 08/14/2022 urina lysis , dipst ick Unknown Analyte 0.2 E.U./d L Not Available [address] [place], [address], 08/14/2022 12:47:08 08/15/19 23 08/14/2022 urina lysis , dipst ick Unknown Analyte Normal = Negati ve Not Available [address] [place], [address], 08/14/2022 12:47:08 08/15/1908/14/2022 urina lysis , dipst ick Unknown Analyte Negati ve Not Available [address] [place], [address], 08/14/2022 12:47:08 08/15/1908/14/2022 urina lysis , dipst ick Unknown Analyte Normal = Negati ve Not Available [address] [place], [address], 08/14/2022 12:47:08 08/15/19 23 08/14/2022 urina lysis , dipst ick Unknown Analyte Negati ve Not Available [address] [place], [address], 08/14/2022 12:47:08 08/15/1908/14/2022 XR, chest + abdom en No observ ation record ed. [id number] [facility] [address] [place] [address], [address], 08/14/2022 16:00:29 Result Notes None recorded. Problems Name Problem SNOMED Code Status Onset Date Resolution Date Notes Provider Name and Address Organization Details Recorded Time Rheumatoid arthritis 74924662 Active 2022 RIRI DEPINTO null, PA - [facility] 12:52:18 Hypertensive disorder 12019341 Active 2022 RIRI DEPINTO null, PA - [facility] 12:52:47 Hypercholestero lemia 72999721 Active 2022 RIRI DEPINTO null, PA - [...] Time 08/14/2022 XR, chest + abdomen completed [email or web address] [facility] [address] [facility] [place], [address], 08/14/2022 16:00:29 Procedure Notes None recorded. Medical Equipment None Reported. Allergies Allergen ID Allergen Name Allergen Category Reaction Reaction Severity Criticality Documentation Date Start Date Code Code System Note Provider Name and Address Organization Details Recorded Time 346560 erythromy edis medicatio n swelling Not available Not available 08/14/2022 4053 RxNorm RIRI DEPINTO null, PA - [facility] 12:49:36 214684 Feldene medicatio n swelling Not available Not available 08/14/2022 94467 8 RxNorm RIRI DEPINTO null, PA - [facility] 12:49:49 688231 Substance with sulfonami de structure and antibacte rial mechanism of action (substanc e) medicatio n dyspnea Not available Not available 08/14/2022 46017 8003 SNOMED RIRI DEPINTO null, PA - [facility] 12:50:00 652381 lactose food,medi cation Not available Not available Not available 08/14/2022 6211 RxNorm RIRI DEPINTO null, PA - [facility] 12:50:17 037312 oxycodone medicatio n swelling Not available Not available 08/14/2022 7804 RxNorm Yasemin Derase null, PA - [facility] 14:02:54 589365 hydrocodo ne Not available swelling Not available [...] Details Last Updated DateTime 08/14/2022 27.5 kg/m2 67334.82 g RIRI DEPINTO PA - [facility] [...] Social History Question Answer Notes LastModified by [employer] ion Details LastModified Time Tobacco Smoking Status [...] SNOMED-CT Code Diagnosis ICD10 Code Diagnosis Note [id number] [address] [place] [address] 07/05/2020 16:48:47 07/05/2020 18:15:44 [id number] [address] [place] [address] 10/22/2018 18:32:01 10/22/2018 20:03:54 [id number] [address] [place] [address] 07/08/2019 08:11:26 07/08/2019 09:03:57 [id number] [address] [place] [address] 12/04/2015 17:11:31 12/04/2015 17:54:15 [id number] [address] [place] [address] 06/18/2018 09:49:11 06/18/2018 11:06:51 [id number] MARGARITO STEIN MD [address] [place] [address] 08/14/2022 12:14:45 08/14/2022 15:13:46 Right lower quadrant pain 031974180 R10.31 Constipation 97691716 K5 9.00 Patient presents with constipati on. [...] ID Guarantor Name 06/18/2018 1 MEDICARE B-[place]: [facility] Minna Clifford [id number] Minna Clifford 06/18/2018 2 UNICARE - GIC - MEDICARE EXTENSION (INDEMNITY) [id number] Ancelmo Clifford [id number] Minna Clifford 10/22/2018 1 MEDIC[place]: [facility] Minna Clifford [id number] Minna Clifford 10/22/2018 2 UNICARE - GIC - MEDICARE EXTENSION (INDEMNITY) [id number] Ancelmo Clifford [id number] Minna Clifford 07/08/2019 1 MEDICARE [place]: [facility] Minna Clifford [id number] Minna Clifford 07/08/2019 2 UNICARE - GIC - MEDICARE EXTENSION (INDEMNITY) [id number] Ancelmo Clifford [id number] Minna Clifford 07/05/2020 1 MEDICARE [place]: [facility] Minna Clifford [id number] Minna Clifford 07/05/2020 2 UNICARE - GIC - MEDICARE EXTENSION (INDEMNITY) [id number] Ancelmo Clifford [id number] Minna Clifford 08/14/2022 1 MEDICARE B-MA: [facility] Minna Clifford [id number] Minna Clifford 08/14/2022 2 UNICARE - GIC - MEDICARE EXTENSION (INDEMNITY) [id number] Ancelmo Daly Clifford [id number] Minna Daly Clifford Notes Date Note Type [...] STEIN MD [address] [place], [address], PA - [facility] 08/17/2022 14:50:13 OBGyn Episode No OBEpisode recorded.
--- NOTE | 2024-05-11 15:48 | HO.SPINEOV ---
Intake Visit Reasons: MRI f/u Intake Note: Ms. Clifford is here today to F/u on the results to her MRI. 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: No Allergies azithromycin Allergy (Intermediate, Verified 05/11/24 15:50) Hives erythromycin base Allergy (Intermediate, Verified 05/11/24 15:50) Hives hydrocodone Allergy (Intermediate, Verified 05/11/24 15:50) shaky, rapid heart beat hydromorphone [From Dilaudid] Allergy (Intermediate, Verified 05/11/24 15:50) Nausea and Vomiting lactose Allergy (Intermediate, Verified 05/11/24 15:50) Gastrointestinal Upset nickel Allergy (Intermediate, Verified 05/11/24 15:50) contact rash oxycodone Allergy (Intermediate, Verified 05/11/24 15:50) shaky,rapid heartbeat piroxicam [From Feldene] Allergy (Intermediate, Verified 05/11/24 15:50) Shortness of Breath Sulfa (Sulfonamide Antibiotics) Allergy (Intermediate, Verified 05/11/24 15:50) hives Assessment & Plan Assessment & Plan (1) Cervical radiculopathy at C8: Code(s): M54.12 - Radiculopathy, cervical region Category: Medical Plan Dear colleague, On 05/11/2024 I saw for follow-up Minna Clifford to review the MRI of the cervical spine. As you know she underwent an anterior diskectomy and fusion C5-C6 for cervical myelopathy. She also had a radiculopathy in his C8 pattern which was discussed with the patient and she was made aware that a C8 foraminotomy would be necessary if her right C8 radiculopathy was not improving. She states that her symptoms are severe and radiating to the 4th and 5th digit. The symptoms are debilitating. Tylenol or gabapentin are not working. She can not take anti-inflammatory drugs as she has only 1 kidney with a reduced function. I reviewed the latest MRI which indeed showed the ongoing severe right C8 foraminal stenosis. Therefore I recommended a C8 foraminotomy. I described the procedure and expected postoperative course. She wants to proceed. She scheduled for 06/07/2024. I spent 20 minutes in his consult to review imaging and answer questions. Erik Alas MD, PhD Sp[facility] Trained Neurosurgeon Director, [facility] [place] [facility] Coding Level of Care Code Est Pt Level 3 (82707) Diagnoses Cervical radiculopathy at C8 M54.12
== END 2024-05-11 16:46 | disposition home or self-care (01) ==
PROVIDERS: PCP Internal Medicine; Visit Provider Neurological Surgery
DX: M54.12 Radiculopathy, cervical region (principal)
CPT/HCPCS: 99213

== ENCOUNTER → 2024-05-11 15:01 | Outpatient (BNVA) | payer MEDICARE, OTHER, SELFPAY | PROVIDERS: PCP Internal Medicine; Visit Provider Neurological Surgery | DX: M54.12 Radiculopathy, cervical region (principal) | CPT/HCPCS: 99212 ==

== ENCOUNTER → 2024-06-07 07:24 | Outpatient (BNV) | payer MEDICARE, OTHER, SELFPAY | PROVIDERS: PCP Nurse Practitioner; Visit Provider Neurological Surgery | DX: M54.12 Radiculopathy, cervical region (principal) | CPT/HCPCS: 63045; 99499 ==

== ENCOUNTER → 2024-06-07 07:24 | Day surgery (SDC) | payer MEDICARE, OTHER, SELFPAY ==
[2024-06-01 09:41] VITALS: BMI 24.8
--- NOTE | 2024-06-06 10:06 | P.CONAN_ITS ---
Documented by User: Martha Cohen NP 06/06/24 10:07 HPI - Anesthesia Eval Consult details Narrative: 78yo F for Right C8 Cervical Foraminotomy s/p C5-6 Ant Cerv Discectomy w/ fusion 11/2023 with GA-ETT 7 Per last PAT: No recent illness Walks >2miles daily CVA: ~2016, salon stroke , on plavix RA: Methotrexate CKD: Renal CA s/p nephrectomy. Follows renal, stable with last visit. [facility] Active Problems Active Problems: All Active Problems (Updated 05/11/24 @ 17:05 by Erik Alas MD, PhD) Cervical radiculopathy at C8 (Acute) De Quervain's tenosynovitis, right (Acute) Hand pain, right (Acute) S/P cervical spinal fusion (Acute) Cervical spinal cord compression (Acute) Cervical myelopathy (Acute) Trigger thumb, right thumb (Acute) Carpal tunnel syndrome of right wrist (Acute) Numbness and tingling of right hand (Acute) Cervical spinal stenosis (Acute) Carpal tunnel syndrome (Acute) Numbness and tingling in left hand (Acute) Thoracic back pain (Acute) Cervical spondylosis (Acute) Cervical radiculopathy (Acute) Rotator cuff arthropathy of right shoulder (Acute) 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 methotrexate user (Acute) Osteoarthritis of glenohumeral joints, bilateral (Acute) History of nephrectomy, right (Acute) CKD (chronic kidney disease) stage 3, GFR 30-59 ml/min (Acute) Hypertension (Acute) Osteoarthritis of lumbar spine (Acute) Seropositive rheumatoid arthritis (Acute) Past Medical History Medical History Diverticulitis CVA (cerebral vascular accident) Rotator cuff arthropathy of right shoulder 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 Osteoarthritis of glenohumeral joints, bilateral CKD (chronic kidney disease) stage 3, GFR 30-59 ml/min Hypertension Osteoarthritis of lumbar spine Seropositive rheumatoid arthritis Family History Family history of problems with anesthesia: No Surgical History Surgical History Hx of cervical spine surgery H/O colonoscopy History of breast lump/mass excision Hx of appendectomy Hx of hysterectomy History of nephrectomy, right History of Problems with Anesthesia: No Social History Social History Household Members Other:: lives alone Housing: House Are you a primary medicare insurance specialist to a significant other at home: No Do you presently have visiting nurse or other home services: No Alcohol intake: current Alcohol intake frequency: holidays/special occasions only Alcohol type: wine Comment: walks on treadmill 2X/week for about 20 minutes Patient Tobacco Use Status: Never used Tobacco e-Cigarette/Vaping Use: Never Used Current occupational status: retired Current occupation: rt handed Meds Allergies Allergy/AdvReac Type Severity Reaction Status Date / Time azithromycin Allergy Intermediate Hives Verified 06/07/24 08:41 erythromycin base Allergy Intermediate Hives Verified 06/07/24 08:41 hydrocodone Allergy Intermediate shaky, Verified 06/07/24 08:41 rapid heart beat hydromorphone [From Dilaudid] Allergy Intermediate Nausea and Verified 06/07/24 08:41 Vomiting lactose Allergy Intermediate Gastrointestinal Verified 06/07/24 08:41 Upset nickel Allergy Intermediate contact Verified 06/07/24 08:41 rash oxycodone Allergy Intermediate shaky,rapid Verified 06/07/24 08:41 heartbeat piroxicam [From Feldene] Allergy Intermediate Shortness Verified 06/07/24 08:41 of Breath Sulfa (Sulfonamide Allergy Intermediate hives Verified 06/07/24 08:41 Antibiotics) Home Medications ?Medication ?Instructions ?Recorded ?Confirmed ?Last Taken ?Type amlodipine 10 mg tablet 10 mg PO QAM 09/14/21 05/31/24 06/07/24 05:30 History calcium 600 mg (as 1 tab PO DAILY 09/14/21 05/31/24 12/07/23 History carbonate)-vitamin D3 10 mcg (400 unit) tablet (Calcium 600 + D(3)) cholecalciferol (vitamin D3) 25 25 mcg PO DAILY 09/14/21 05/31/24 12/07/23 History mcg (1,000 unit) capsule clopidogrel 75 mg tablet (Plavix) 75 mg PO DAILY 09/14/21 06/01/24 05/31/24 Hist ory folic acid 1 mg tablet 1 mg PO DAILY 09/14/21 05/31/24 12/07/23 History atorvastatin 80 mg tablet 80 mg PO BEDTIME 01/14/22 05/31/24 12/07/23 History Exam Height,Weight and Vital Signs: Height 5 ft 3 in Weight 63.63 kg Pertinent Lab Results Pertinent Lab Results: Lab Results 11/25/23 Range/Units 11:17 WBC 5.2 (4.8-10.8) X10*3/uL RBC 4.07 L (4.20-5.50) X10*6/uL Hgb 12.7 (12.0-16.0) g/dl Hct 38.9 (37.0-47.0) % MCV 95.6 (80.0-98.0) fL MCH 31.2 (27.0-33.0) pg MCHC 32.6 (31.0-35.0) g/dl RDW 12.9 (11.0-16.0) % Plt Count 207 (160-400) X10*3/uL MPV 10.8 (9.4-12.3) fL Absolute Nucleated RBC 0.000 (0.0-0.012) X10*3/uL Nucleated RBC % (auto) 0.0 (0.0-0.2) /100WBC Sodium 143 (135-145) mmol/L Potassium 4.9 (3.3-5.1) mmol/L Chloride 108 (96-108) mmol/L Carbon Dioxide 28 (22-29) mmol/L Anion Gap 12 (12-20) BUN 28 H (9-16) mg/dL Creatinine 1.71 H (0.5-1.4) mg/dL Estim Creat Clear Calc 26.0 Estimated GFR 29 Random Glucose 87 (60-115) mg/dL Calcium 10.1 (8.4-10.2) mg/dL Narrative Narrative: EKG Vent. Rate : 054 BPM Atrial Rate : 054 BPM P-R Int : 162 ms QRS Dur : 096 ms QT Int : 436 ms P-R-T Axes : 050 -03 075 degrees QTc Int : 413 ms Sinus bradycardia Nonspecific T wave abnormality Abnormal ECG No previous ECGs available Assessment and Plan Assessment Anesthesia Assessment: Chart Reviewed Final Anesthetic Review Family History of Problems with Anesthesia: No History of Problems with Anesthesia: No Documented by User: Tracy Hammond MD 06/07/24 13:31 [facility] Past Medical History Medical History Diverticulitis CVA (cerebral vascular accident) Rotator cuff arthropathy of right shoulder 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 Osteoarthritis of glenohumeral joints, bilateral CKD (chronic kidney disease) stage 3, GFR 30-59 ml/min Hypertension Osteoarthritis of lumbar spine Seropositive rheumatoid arthritis Family History Family history of problems with anesthesia: No Surgical History Surgical History Hx of cervical spine surgery H/O colonoscopy History of breast lump/mass excision Hx of appendectomy Hx of hysterectomy History of nephrectomy, right History of Problems with Anesthesia: No Social History Social History Household Members Other:: lives alone Housing: House Are you a primary medicare insurance specialist to a significant other at home: No Do you presently have visiting nurse or other home services: No Alcohol intake: current Alcohol intake frequency: holidays/special occasions only Alcohol type: wine Comment: walks on treadmill 2X/week for about 20 minutes Patient Tobacco Use Status: Never used Tobacco e-Cigarette/Vaping Use: Never Used Current occupational status: retired Current occupation: rt handed Meds Allergies Allergy/AdvReac Type Severity Reaction Status Date / Time azithromycin Allergy Intermediate Hives Verified 06/07/24 08:41 erythromycin base Allergy Intermediate Hives Verified 06/07/24 08:41 hydrocodone Allergy Intermediate shaky, Verified 06/07/24 08:41 rapid heart beat hydromorphone [From Dilaudid] Allergy Intermediate Nausea and Verified 06/07/24 08:41 Vomiting lactose Allergy Intermediate Gastrointestinal Verified 06/07/24 08:41 Upset nickel Allergy Intermediate contact Verified 06/07/24 08:41 rash oxycodone Allergy Intermediate shaky,rapid Verified 06/07/24 08:41 heartbeat piroxicam [From Feldene] Allergy Intermediate Shortness Verified 06/07/24 08:41 of Breath Sulfa (Sulfonamide Allergy Intermediate hives Verified 06/07/24 08:41 Antibiotics) Home Medications ?Medication ?Instructions ?Recorded ?Confirmed ?Last Taken ?Type amlodipine 10 mg tablet 10 mg PO QAM 09/14/21 05/31/24 06/07/24 05:30 History calcium 600 mg (as 1 tab PO DAILY 09/14/21 05/31/24 12/07/23 History carbonate)-vitamin D3 10 mcg (400 unit) tablet (Calcium 600 + D(3)) cholecalciferol (vitamin D3) 25 25 mcg PO DAILY 09/14/21 05/31/24 12/07/23 History mcg (1,000 unit) capsule clopidogrel 75 mg tablet (Plavix) 75 mg PO DAILY 09/14/21 06/01/24 05/31/24 History folic acid 1 mg tablet 1 mg PO DAILY 09/14/21 05/31/24 12/07/23 History atorvastatin 80 mg tablet 80 mg PO BEDTIME 01/14/22 05/31/24 12/07/23 History Exam Height,Weight and Vital Signs: Height 5 ft 3 in Weight 63.63 kg Vital Signs Temp Pulse Resp BP Pulse Ox O2 Del Method 06/07/24 08:46 98.7 F 65 16 139/69 99 Room Air Airway Mallampati Class: I TM Dist: >3cm Loose/Missing/Broken Teeth: Yes (Missing molars. Denies broken or loose teeth) Heart: RRR Lungs: CTAB Assessment and Plan Assessment Anesthesia Assessment: Anesthesia Plan Discussed and Chart Reviewed Final Anesthetic Review Family History of Problems with Anesthesia: No History of Problems with Anesthesia: No NPO: Yes ASA Class: III Final Preanesthetic Review: No Changes in Pt Med Stat, Meds/Allgs Chart Reviewed, Consent Obtained/Reviewed and Anes Risks/Benef Reviewed Patient Risk: Intermediate Procedure Risk: Intermediate Assessment/Block/Sedation in SS: Assess/Block/Sedation-SS Anesthetic Plan Anesthetic Plan: GA Disposition: Standard PACU
[2024-06-07] VITALS (12 sets, daily range): BP systolic 131–168; BP diastolic 58–77; PULSE 57–84; RESP 14–16; TEMP 36.5–37.1; O2SAT 95–100; BMI 25.0
--- NOTE | ~2024-06-07 | FL_ITS ---
EXAMINATION: FL GUIDANCE ONLY HISTORY: C8 CERVICAL FORAMINOTOMY COMPARISON: Correlation is made to plain films of the cervical spine dated 05/09/2024. TECHNIQUE: Fluoroscopy time: 5 seconds. Cumulative Dose: 0.2463 mGy. DAP: 0.0922 mGym2 Images: 1. FINDINGS: A single fluoroscopic spot film of the spine demonstrates anterior cervical disc fusion at C5-6. FL/FL guidance in OR IMPRESSION: Fluoroscopy during procedure. Please see procedure report for additional information. Electronically signed by: Ignacio Benitez MD 06/07/2024 01:08 PM NAIF
[2024-06-07] MEDS: Gabapentin 300 MG CAPSULE PO (08:57)
[2024-06-07] MEDS: methocarbamoL 750 MG TABLET PO (08:57)
[2024-06-07] MEDS: Lactated Ringers 1,000 ML 100 ML IVCONT (09:03)
--- NOTE | 2024-06-07 10:01 | P.HPSUR_ITS ---
Pre-Procedural Eval Section A - 24 Hr Update-Section A only Date of Service: 06/07/24 The patient is an INPATIENT: No Section B - Complete if H&P > 30 days Chief Complaint: Radiculopathy, cervical region Details of Present Illness: Right cervical radiculopathy Allergies: Allergies Allergy/AdvReac Type Severity Reaction Status Date / Time azithromycin Allergy Intermediate Hives Verified 06/07/24 08:41 erythromycin base Allergy Intermediate Hives Verified 06/07/24 08:41 hydrocodone Allergy Intermediate shaky, Verified 06/07/24 08:41 rapid heart beat hydromorphone [From Dilaudid] Allergy Intermediate Nausea and Verified 06/07/24 08:41 Vomiting lactose Allergy Intermediate Gastrointestinal Verified 06/07/24 08:41 Upset nickel Allergy Intermediate contact Verified 06/07/24 08:41 rash oxycodone Allergy Intermediate shaky,rapid Verified 06/07/24 08:41 heartbeat piroxicam [From Feldene] Allergy Intermediate Shortness Verified 06/07/24 08:41 of Breath Sulfa (Sulfonamide Allergy Intermediate hives Verified 06/07/24 08:41 Antibiotics) Review of Systems Sugical H&P ROS: Negative: Constitution, Cardiovascular, Respiratory, Neurological, Psychiatric, Hem-Onc, Allergic/Immunologic, Gastrointestinal, Genitourinary, Musculoskeletal, Integumentary, Endocrine and Eyes /Ears/Nose/Throat Exam Surgical H&P Exam: Normal: HEENT, Normal: Heart, Normal: Lungs, Normal: Extremities, Normal: Abdomen, Normal: Skin and Normal: Neurological (Awake, alert) Plan Diagnosis/Plan: Unchanged I have reviewed the history and physical and performed a pertinent physical examination on my patient. No changes have occurred unless specified. Right C8 foraminotomy Time Spent With Patient Time: Total time managing care of this patient today __5__ minutes.
--- NOTE | 2024-06-07 10:06 | PM.DS ---
DS: Providers Provider Date of Service: 06/07/24 Date of discharge: 06/07/24 Primary care physician: Quyen López NP Admitting clinician: Erik Alas DS: Diagnosis Discharge Diagnosis (1) Cervical radiculopathy at C8: Status: Acute Physical Exam Vital Signs: Vital Signs: Last Vital Signs Temp 98.7 F 06/07/24 08:46 Pulse 65 06/07/24 08:46 Resp 16 06/07/24 08:46 BP 139/69 06/07/24 08:46 Pulse Ox 99 06/07/24 08:46 O2 Del Method Room Air 06/07/24 08:46 BMI result Body Mass Index 25.0 Discharge Plan Discharge Patient Disposition: Home, Self-Care Referrals: Quyen López NP [Primary Care Provider] - 1 Week Discharge Medications: Continued (DME) Wrist Brace Misc See Rx Instructions .ROUTE .MEDSUPPLY Qty: 1 0RF Rx Instructions: Use as directed at night on right wrist atorvastatin 80 mg tablet 80 mg PO BEDTIME folic acid 1 mg tablet 1 mg PO DAILY cholecalciferol (vitamin D3) 25 mcg (1,000 unit) capsule 25 mcg PO DAILY calcium carbonate-vitamin D3 [Calcium 600 + D(3)] 600 mg-10 mcg (400 unit) tablet 1 tab PO DAILY amlodipine 10 mg tablet 10 mg PO QAM lidocaine 5 % adhesive patch,medicated 1 patch topical DAILY 30 Days Qty: 30 1RF Rx Instructions: Apply to affected area for up to 12 hours daily methotrexate sodium 2.5 mg tablet 7.5 mg PO QWEEK Qty: 48 1RF Held clopidogrel [Plavix] 75 mg tablet 75 mg PO DAILY Hold Instructions: Resume on 06/14/24. You can resume Plavix 7 days after surgery Diet: Advance to usual diet Activity on Discharge: As tolerated Activity Restrictions/Additional Instructions: After your spinal surgery we ask you to observe the following restrictions/guidelines: Activity: It is normal to feel some discomfort as you increase your activity, but that will improve with time. We ask you avoid heavy lifting or acitivities that cause pain. As a general rule, 8lbs is a safe limit for lifting right after surgery. Walk as much as you feel comfortable but not to exhaustion. You will feel extra tired the first few days after surgery. Stay well hydrated. It is OK to walk up and down stairs You may return to driving when you are off narcotics (such as vicodin, oxycodone, dilaudid, etc), and you are back to normal functional capacity. If you have any concerns please check with office before driving. Return to work is specific to each patient and each surgery, so please speak with your doctor/PA at first follow up. Please bring paperwork such as FMLA at that time if you need it filled out. Medications: You can resume Plavix 7 days after surgery For optimum pain control, it is best to start with a combination of 500 mg of Tylenol every 4 hours with 600 mg of Motrin every 8 hours, and use narcotics as needed in between for breakthrough pain. We will give you a short supply of narcotics after surgery (usually one weeks worth). If you need more please call the office but do not use more than prescribed. You will need to give our office 48 hours notice if you need narcotics refilled and we do not fill narcotics on weekends or evenings. If you are on a narcotic, it is a good idea to take a stool softener such as colace or senna to avoid constipation If you take blood thinner such as aspirin, Plavix, Coumadin, Effient, Eliquis etc for conditions such as Afib, DVT, Pulmonary embolus, coronary disease, stents etc please speak with your surgeon about specific details as to when you can resume these medications. You can resume NSAIDs on post op day 1 (eg: Motrin, Naproxen, etc). Follow up: Please call the office, , after surgery to arrange a 3 week follow up for wound check. Wound Care: You may remove your dressing on the first day after surgery. ?You may ?leave open to air. Please do not remove the steri strips underneath. they will fall off on their own in one week. IT IS NORMAL FOR THE WOUND TO OOZE OR BE BLOODY FOR A FEW DAYS AFTER SURGERY. ?IF THIS HAPPENS JUST PLACE NEW DRESSING OVER IT TO AVOID STAINING CLOTHES. You may shower on post op day # 1 We ask that you do not let the water soak the wound. If it does get wet, just towel dry lightly. Please do not scrub your incision or place any type of chemical/ointment on the wound. No tub baths, pools or jacuzzis for one month. If you have any leaking or redness from your wound, or fevers, please call office Print Language: Romansh
[2024-06-07] MEDS: ceFAZolin Sodium/Dextrose,Iso 2 GM/50 ML PIGGYBACK IV (12:09)
--- NOTE | 2024-06-07 13:03 | P.OP_ITS ---
Operative Note Operative Note Date of Service: 06/07/24 Narrative: Preoperative Diagnosis: Right cervical radiculopathy Operation: Right C8 foraminotomy with microscope Consent Informed Consent was obtained for this operation. I have explained the nature, purpose and benefits of the operation. I have discussed the risks and benefit of the operation including possible complications or adverse events with patient/family. Alternative(s) were discussed with the patient with their rel ative benefits and risks as well as the consequences of not accepting the operation were included in obtaining consent. Surgeon: CHAD EVANS MD, PHD Procedure Assisted By: John Simpson PA-C Description of Procedure This patient is suffering from a C8 radiculopathy due to C8 neuroforaminal stenosis.. The patient was offered a decompression. The procedure complications were explained. The patient was consented. The patient was brought to the operating room and endotracheally intubated. The patient was turned in prone position on the gel rolls. Prep and drape was done followed by timeout. a midcervical incision was made. Dissection was carried down the midline to avoid blood loss. The paravertebral muscles were released to expose the C7 and T1 laminae in preparation for the foraminotomy. The microscope was brought in. A small C7-T1 laminotomy was done. The origin of the right C8 nerve was identified. The inferior articular process of C7 was drilled down after which with a 1. Kerr[place] a foraminotomy was done to decompress the nerve root. A nerve hook could be easily passed over the nerve root a sign of adequate decompression. The physician research assistant professor performed hemostasis and closed incision. kostas were used to approximate the incision. An op-site with tegaderm was used to cover the incision. All sponge needle counts were correct. Patient was extubated and transported in stable is to recovery room. Anesthesia: General Estimated Blood Loss (ml): Minimal Duration of Surgery: Under 60 Minutes Postoperative Plan: Discharge to home
--- NOTE | 2024-06-07 13:09 | P.DS_ITS ---
DS: Providers Provider Date of Service: 06/07/24 Date of discharge: 06/07/24 Primary care physician: Quyen López NP DS: Diagnosis Discharge Diagnosis (1) Cervical radiculopathy at C8: Status: Acute DS: Summary Time Attestation Discharge Coordination Time (in mins): 12 Quality: Safe Use of Opioids Does Pt have an Active Cancer Diagnosis on the Problem List?: No Quality: Stroke Does the patient have a stroke diagnosis?: No Physical Exam Vital Signs: Vital Signs: Last Vital Signs Temp 98.7 F 06/07/24 08:46 Pulse 65 06/07/24 08:46 Resp 16 06/07/24 08:46 BP 139/69 06/07/24 08:46 Pulse Ox 99 06/07/24 08:46 O2 Del Method Room Air 06/07/24 08:46 BMI result Body Mass Index 25.0 Discharge Plan Discharge Patient Disposition: Home, Self-Care Referrals: Quyen López NP [Primary Care Provider] - 1 Week Discharge Medications: New doxycycline hyclate 100 mg capsule 100 mg PO BID 3 Days Qty: 6 0RF Continued (DME) Wrist Brace Misc See Rx Instructions .ROUTE .MEDSUPPLY Qty: 1 0RF Rx Instructions: Use as directed at night on right wrist atorvastatin 80 mg tablet 80 mg PO BEDTIME folic acid 1 mg tablet 1 mg PO DAILY cholecalciferol (vitamin D3) 25 mcg (1,000 unit) capsule 25 mcg PO DAILY calcium carbonate-vitamin D3 [Calcium 600 + D(3)] 600 mg-10 mcg (400 unit) tablet 1 tab PO DAILY amlodipine 10 mg tablet 10 mg PO QAM lidocaine 5 % adhesive patch,medicated 1 patch topical DAILY 30 Days Qty: 30 1RF Rx Instructions: Apply to affected area for up to 12 hours daily methotrexate sodium 2.5 mg tablet 7.5 mg PO QWEEK Qty: 48 1RF Held clopidogrel [Plavix] 75 mg tablet 75 mg PO DAILY Hold Instructions: Resume on 06/14/24. You can resume Plavix 7 days after surgery Discharge Orders: Discharge Order (Routine); Ordered 06/07/24 Ordered By: John Simpson Diet: Advance to usual diet Activity on Discharge: As tolerated Activity Restrictions/Additional Instructions: After your spinal surgery we ask you to observe the following restrictions/guidelines: Activity: It is normal to feel some discomfort as you increase your activity, but that will improve with time. We ask you avoid heavy lifting or acitivities that cause pain. As a general rule, 8lbs is a safe limit for lifting right after surgery. Walk as much as you feel comfortable but not to exhaustion. You will feel extra tired the first few days after surgery. Stay well hydrated. It is OK to walk up and down stairs You may return to driving when you are off narcotics (such as vicodin, oxycodone, dilaudid, etc), and you are back to normal functional capacity. If you have any concerns please check with office before driving. Return to work is specific to each patient and each surgery, so please speak with your doctor/PA at first follow up. Please bring paperwork such as FMLA at that time if you need it filled out. Medications: You can resume Plavix 7 days after surgery We have sent in a prescription of Doxycycline (antibiotic) please take this as prescribed for 3 days after surgery. For optimum pain control, it is best to start with a combination of 500 mg of Tylenol every 4 hours with 600 mg of Motrin every 8 hours, and use narcotics as needed in between for breakthrough pain. We will give you a short supply of narcotics after surgery (usually one weeks worth). If you need more please call the office but do not use more than prescribed. You will need to give our office 48 hours notice if you need narcotics refilled and we do not fill narcotics on weekends or evenings. If you are on a narcotic, it is a good idea to take a stool softener such as colace or senna to avoid constipation If you take blood thinner such as aspirin, Plavix, Coumadin, Effient, Eliquis etc for conditions such as Afib, DVT, Pulmonary embolus, coronary disease, stents etc please speak with your surgeon about specific details as to when you can resume these medications. You can resume NSAIDs on post op day 1 (eg: Motrin, Naproxen, etc). Follow up: Please call the office, , after surgery to arrange a 3 week follow up for wound check. Wound Care: You may remove your dressing on the first day after surgery. You have 4 kostas ocerlying the incision site.?You may leave the incision open to air. Please follow up with us in clinic in 10 days for staple removal. IT IS NORMAL FOR THE WOUND TO OOZE OR BE BLOODY FOR A FEW DAYS AFTER SURGERY. ?IF THIS HAPPENS JUST PLACE NEW DRESSING OVER IT TO AVOID STAINING CLOTHES. You may shower on post op day # 1 We ask that you do not let the water soak the wound. If it does get wet, just towel dry lightly. Please do not scrub your incision or place any type of chemical/ointment on the wound. No tub baths, pools or jacuzzis for one month. If you have any leaking or redness from your wound, or fevers, please call office Print Language: Hungarian
[2024-06-07] MEDS: ondansetron HCL 4 MG/2 ML VIAL IVPUSH (14:20)
[2024-06-07] MEDS: fentaNYL citrate/PF 100 MCG/2 ML VIAL 25 MCG IVPUSH ×2 (14:20→14:35)
== END | disposition home or self-care (01) ==
PROVIDERS: PCP Nurse Practitioner; Visit Provider Neurological Surgery
PROC: (CPT 63020; principal; 2024-06-07 10:40)
DX: M54.12 Radiculopathy, cervical region (principal); I12.9 Hypertensive chronic kidney disease with stage 1 through stage 4 chronic kidney disease, or unspecified chronic kidney disease; N18.30 Chronic kidney disease, stage 3 unspecified; Z90.5 Acquired absence of kidney; Z88.1 Allergy status to other antibiotic agents; Z88.2 Allergy status to sulfonamides; Z88.5 Allergy status to narcotic agent; Z88.8 Allergy status to other drugs, medicaments and biological substances; Z98.890 Other specified postprocedural states; Z79.899 Other long term (current) drug therapy
CPT/HCPCS: 63020; J0131; J0690; J1596; J2371; J2405; J2704; J3010

== ENCOUNTER 2024-06-18 09:43 | Outpatient (AMB) | payer MEDICARE, OTHER, SELFPAY ==
--- NOTE | 2024-06-18 09:46 | HO.SPINEOV ---
Intake Visit Reasons: staple removal Intake Note: Ms. Clifford is here today for her staple removal. Pressure Washer Required: No Allergies azithromycin Allergy (Intermediate, Verified 06/07/24 08:41) Hives erythromycin base Allergy (Intermediate, Verified 06/07/24 08:41) Hives hydrocodone Allergy (Intermediate, Verified 06/07/24 08:41) shaky, rapid heart beat hydromorphone [From Dilaudid] Allergy (Intermediate, Verified 06/07/24 08:41) Nausea and Vomiting lactose Allergy (Intermediate, Verified 06/07/24 08:41) Gastrointestinal Upset nickel Allergy (Intermediate, Verified 06/07/24 08:41) contact rash oxycodone Allergy (Intermediate, Verified 06/07/24 08:41) shaky,rapid heartbeat piroxicam [From Feldene] Allergy (Intermediate, Verified 06/07/24 08:41) Shortness of Breath Sulfa (Sulfonamide Antibiotics) Allergy (Intermediate, Verified 06/07/24 08:41) hives Assessment & Plan Assessment & Plan (1) Cervical radiculopathy at C8: Code(s): M54.12 - Radiculopathy, cervical region Category: Medical Plan Operation: Right C8 foraminotomy 06/07/24 Minna is a pleasant 78 year old female who underwent a right C8 foraminotomy about [address] Alas[address] She comes in today for staple removal of her posterior surgical incision site. She reports that since her laminotomy she has overall been doing well in terms of her healing course, but does still have pain in her right arm. She also reports some pain in her shoulders, worse on the right side. We discussed how the shoulder pain is very common with posterior cervical surgeries as the trapezius muscle is cut through for exposure of the cervical spine. She was assured that this should resolve in the coming weeks. No new neurological deficits. The patient ambulates well and rises from a seated position independently. Her gait is non-antalgic & non-spastic. Her postorior incision site is clean, dry, with no signs of drainage or swelling. I removed 4 kostas overlying her posterior cervical incision site during this encounter. They were removed in the normal sterile fashion. She tolerated the staple removal well. I would like Minna to follow up with us again in 6 weeks for a subsequent postoperative visit. She reported that she wants to follow up with Dr. Alas specifically as she would like to ask him more questions regarding her right arm pain. I did encourage her that her pain should continue to improve as she heals from surgery, and informed her that some of her pain may be related to postoperative inflammation. John Alas MD,PhD [facility] Coding Level of Care Code Global (19828) Diagnoses Cervical radiculopathy at C8 M54.12
--- OUTSIDE RECORDS SUMMARY | 2024-06-18 10:39 | XMS_ITS | Data Portability ---
Author Organization GABRIELA Mason [facility], [address] Address [address] [place] [address] Assessment No assessment recorded. Plan of Treatment Reminders Order Date Submit Date Provider Last Modified By Organization Details Last Modified Time Details Appointments None recorded. Lab urinalysis , dipstick 2022 023 [email or web address] [address], [address] [place], [address], 15:10:40 Referral None recorded. Procedures None recorded. Surgeries None recorded. Imaging XR, chest + abdomen 2022 023 [email or web address] [facility], [address] [place] [address], [address], 15:13:47 Medication Orders None recorded. Patient TargetsNo targets recorded. Patient Instructions Encounter Date Encounter Id Patient Instructions Last Modified By Organization Details Last Modified Time 08/14/2022 [id number] constipation: care instructions [id number] Not available 08/14/2022 15:11:44 You can take ove r the counter tylenol or ibuprofen per package instructions for the pain. See printed instructions. Follow-up with your doctor as scheduled later this month. Seek Emergency Medical evaluation for any worsening symptoms. [id number] Not available 08/17/2022 14:48:50 Reason for Referral None Reported. Results Created Date Observation Date Name Description Value Unit Range Abnormal Flag Note LastModifiedBy Organization Detail LastModifiedTime 08/15/19 23 08/14/2022 urina lysis , dipst ick Unknown Analyte Normal = light yellow Not Available [address] [place], [address], 08/14/2022 12:47:08 08/15/1908/14/2022 urina lysis , dipst ick Unknown Analyte Yellow Not Available [address] [place] [address] [address] [place], [address], 08/14/2022 12:47:08 08/15/19 23 08/14/2022 urina lysis , dipst ick Unknown Analyte Normal = clear Not Available [address] [place], [address], 08/14/2022 12:47:08 08/15/1908/14/2022 urina lysis , dipst ick Unknown Analyte Clear Not Available [address] [place] [address] [address] [place], [address], 08/14/2022 12:47:08 08/15/1908/14/2022 urina lysis , dipst ick Unknown Analyte Normal = negati ve Not Available [address] [place], [address], 08/14/2022 12:47:08 08/15/19 23 08/14/2022 urina lysis , dipst ick Unknown Analyte Negati ve Not Available [address] [place], [address], 08/14/2022 12:47:08 08/15/19 23 08/14/2022 urina lysis , dipst ick Unknown Analyte Normal = Negati ve Not Available [address] [place], [address], 08/14/2022 12:47:08 08/15/19 23 08/14/2022 urina lysis , dipst ick Unknown Analyte Negati ve Not Available [address] [place], [address], 08/14/2022 12:47:08 08/15/1908/14/2022 urina lysis , dipst ick Unknown Analyte Normal = Negati ve Not Available [address] [place], [address], 08/14/2022 12:47:08 08/15/1908/14/2022 urina lysis , dipst ick Unknown Analyte Negati ve Not Available [address] [place], [address], 08/14/2022 12:47:08 08/15/1908/14/2022 urina lysis , dipst ick Unknown Analyte Normal = 1.010, 1.015, 1.020 Not Available [address] [place], [address], 08/14/2022 12:47:08 08/15/1908/14/2022 urina lysis , dipst ick Unknown Analyte 1.020 Not Available [facility] [address] [place], [address], 08/14/2022 12:47:08 08/15/1908/14/2022 urina lysis , dipst ick Unknown Analyte Normal = Negati ve Not Available [address] [place], [address], 08/14/2022 12:47:08 08/15/1908/14/2022 urina lysis , dipst ick Unknown Analyte Negati ve Not Available [address] [place], [address], 08/14/2022 12:47:08 08/15/19 23 08/14/2022 urina lysis , dipst ick Unknown Analyte Normal = 6.5, 7.0, 7.5, 8.0 Not Available [address] [place], [address], 08/14/2022 12:47:08 08/15/19 23 08/14/2022 urina lysis , dipst ick Unknown Analyte 5.5 Not Available [facility] [address] [place], [address], 08/14/2022 12:47:08 08/15/1908/14/2022 urina lysis , dipst ick Unknown Analyte Normal = Negati ve Not Available [address] [place], [address], 08/14/2022 12:47:08 08/15/19 23 08/14/2022 urina lysis , dipst ick Unknown Analyte Negati ve Not Available [address] [place], [address], 08/14/2022 12:47:08 08/15/19 23 08/14/2022 urina lysis , dipst ick Unknown Analyte Normal = 0.2, 1.0 Not Available [address] [place], [address], 08/14/2022 12:47:08 08/15/19 23 08/14/2022 urina lysis , dipst ick Unknown Analyte 0.2 E.U./d L Not Available [address] [place], [address], 08/14/2022 12:47:08 08/15/19 23 08/14/2022 urina lysis , dipst ick Unknown Analyte Normal = Negati ve Not Available [address] [place], [address], 08/14/2022 12:47:08 08/15/1908/14/2022 urina lysis , dipst ick Unknown Analyte Negati ve Not Available [address] [place], [address], 08/14/2022 12:47:08 08/15/1908/14/2022 urina lysis , dipst ick Unknown Analyte Normal = Negati ve Not Available [address] [place], [address], 08/14/2022 12:47:08 08/15/19 23 08/14/2022 urina lysis , dipst ick Unknown Analyte Negati ve Not Available [address] [place], [address], 08/14/2022 12:47:08 08/15/1908/14/2022 XR, chest + abdom en No observ ation record ed. [id number] [facility] [address] [place] [address], [address], 08/14/2022 16:00:29 Result Notes None recorded. Problems Name Problem SNOMED Code Status Onset Date Resolution Date Notes Provider Name and Address Organization Details Recorded Time Rheumatoid arthritis 84829254 Active 2022 RIRI DEPINTO null, PA - [facility] 3 12:52:18 Hypertensive disorder 79413751 Active 2022 RIRI DEPINTO null, PA - [facility] 3 12:52:47 Hypercholestero lemia 67225340 Active 2022 RIRI DEPINTO null, PA - [...] Time 08/14/2022 XR, chest + abdomen completed [id number] [facility] [address] [facility] [place], [address], 08/14/2022 16:00:29 Procedure Notes None recorded. Medical Equipment None Reported. Allergies Allergen ID Allergen Name Allergen Category Reaction Reaction Severity Criticality Documentation Date Start Date Code Code System Note Provider Name and Address Organization Details Recorded Time 023484 erythromy edis medicatio n swelling Not available Not available 08/14/2022 4053 RxNorm RIRI DEPINTO null, PA - [facility] 12:49:36 514914 Feldene medicatio n swelling Not available Not available 08/14/2022 04415 8 RxNorm RIRI DEPINTO null, PA - [facility] 12:49:49 209852 Substance with sulfonami de structure and antibacte rial mechanism of action (substanc e) medicatio n dyspnea Not available Not available 08/14/2022 25755 8003 SNOMED RIRI DEPINTO null, PA - [facility] 12:50:00 086633 lactose food,medi cation Not available Not available Not available 08/14/2022 6211 RxNorm RIRI DEPINTO null, PA - [facility] 12:50:17 228133 oxycodone medicatio n swelling Not available Not available 08/14/2022 7804 RxNorm Yasemin Derase null, PA - [facility] 14:02:54 143697 hydrocodo ne Not available swelling Not available Not available 08/14/2022 5489 RxNorm Yasemin Romo GABRIELA sim [facility] 3 14:02:46 Medications Name Sig Start Date Stop [...] Not Available Vitals Date Recorded Body height Body mass index (BMI) Body weight Pain severity - 0-10 verbal numeric rating [Score] - Reported Respiratory rate Oxygen saturation Oxygen saturation in Arterial blood by Pulse oximetry Heart rate Body temperature Systolic blood pressure Diastolic blood pressure Provider Name and Address Organization Details Last Updated DateTime 3 160.02 cm 27.5 kg/m2 64213.8 2 g 0 18 /min 100 % 100 % 74 /min 97.2 [degF] 143 mm[Hg] 74 mm[Hg] RIRI OCHOA [facility] 3 12:57:13 Social History Question Answer Notes LastModified by Organizat ion Details LastModified Time Tobacco Smoking Status Never Smoker GABRIELA Aguila [facility] 08/14/2022 12:53:45 What Is Your [...] SNOMED-CT Code Diagnosis ICD10 Code Diagnosis Note [id number] [address] [place] [address] 07/05/2020 16:48:47 07/05/2020 18:15:44 [id number] [address] [place] [address] 10/22/2018 18:32:01 10/22/2018 20:03:54 [id number] [address] [facility] [address] [place] [address] 07/08/2019 08:11:26 07/08/2019 09:03:57 [id number] [address] [place] [address] 12/04/2015 17:11:31 12/04/2015 17:54:15 [id number] [address] [place] [address] 06/18/2018 09:49:11 06/18/2018 11:06:51 [id number] MARGARITO STEIN MD [address] [facility] CHAD bautista [address] 08/14/2022 12:14:45 08/14/2022 15:13:46 Right lower quadrant pain 951642128 R10.31 Constipation 82304542 K5 9.00 Patient presents with constipati on. [...] ID Guarantor Name 06/18/2018 1 MEDICARE B-[place]: [facility] Minna Muller Darrin [id number] Minna Daly Clifford 06/18/2018 2 UNICARE - GIC - MEDICARE EXTENSION (INDEMNITY) [id number] Darrin [id number] Minna Daly Clifford 10/22/2018 1 [place]ICARE B-[place]: [facility] Minna Muller Clifford [id number] Minna Daly Clifford 10/22/2018 2 UNICARE - GIC - MEDICARE EXTENSION (INDEMNITY) [id number] Darrin [id number] Minna Daly Darrin 07/08/2019 1 MEDICARE B-[place]: [facility] Minna Yohana Darrin [id number] Minna Daly Darrin 07/08/2019 2 UNICARE - GIC - MEDICARE EXTENSION (INDEMNITY) [id number] Darrin [id number] Minna Daly Clifford 07/05/2020 1 MEDICARE B-[place]: [facility] Minna Yohana Darrin [id number] Minna Daly Darrin 07/05/2020 2 UNICARE - GIC - MEDICARE EXTENSION (INDEMNITY) [id number] Ancelmo Clifford [id number] Minna Clifford 08/14/2022 1 MEDICARE B-[place]: [facility] Minna Clifford [id number] Minna Clifford 08/14/2022 2 UNICARE - GI - MEDICARE EXTENSION (INDEMNITY) [id number] Ancelmo Clifford [id number] Minna Clifford Notes Date Note Type Note Provider [...] her appendix removed. MARGARITO STEIN MD [address] [facility] [place], [address], PA - [facility] 08/17/2022 14:50:13 OBGyn Episode No OBEpisode recorded.
--- OUTSIDE RECORDS SUMMARY | 2024-06-18 10:39 | XMS_ITS | Clinical Summary ---
Author Organization [facility] Address [address] [place] [address] Phone Care Team Providers Care Therapy Site Coordinator Name Role Phone Julian Alya Primary Care Provider [phone] Allergies Active Allergy Reactions Criticality Noted Date Comments Erythromycin Hives 04/26/2005 Hydrocodone Nausea And Vomiting 09/15/2016 Lisinopril 05/14/2009 Oxycodone Nausea And Vomiting 06/28/2013 Piroxicam Hives 04/26/2005 Sulfacetamide Sodium Hives 04/26/2005 Medications amLODIPine (NORVASC) 10 mg tablet Take 1 [...] total) by mouth if needed. Active calcium carbonate/vitami n D3 (CALCIUM 600 + D,3, ORAL) Take 1 tablet by mouth 1 (one) time each day. 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 partial uretrectomy Follows with [facility] H/O right nephrectomy 10/23/2020 Kidney [...] - 05/10/2024 11:59 PM EST Hospital Encounter [facility] MRI [address] [place] [address] Radiculopathy, cervical region Discharge Disposition: Home or Self Care from Last 3 Months Immunizations Name Administration Dates Next Due Influenza, Unspecified 02/15/2023 PPD Test 10/28/2000,10/26/2000 MyCube SARS-CoV-2 COVID-19, mRNA, LNP-S, preservative free 08/23/2021,02/09/2021 [...] fibroids abd total hyst COLONOSCOPY 12/13/2007 PROCEDURE: NC COLONOSCOPY STOMA DX INCLUDING COLLJ SPEC SPX; COMMENT: Up to cecum, good preparation, mild diverticulosis, sigmoid polyp removed:Tubular adenoma COLONOSCOPY 03/20/2013 PROCEDURE: NC COLONOSCOPY STOMA DX INCLUDING COLLJ SPEC SPX; COMMENT: tics; repeat in 5 yrs BREAST SURGERY Bilateral PROCEDURE: NC UNLISTED PROCEDURE BREAST; COMMENT: bilat cysts removed [...] kidney disease) stage 4, GFR 15-29 ml/min ([facility]) 11/27/2013 DX:CKD (chronic kidney dise ase) stage 4, GFR 15-29 ml/min ([facility]) Vertigo DX:Vertigo Family History Medical History Relation [...] drink = 0.6 oz pur e alcohol) Comments Unknown Sex and Gender Information Value Date Recorded Sex Assigned at Not on file Legal Sex Female 8:46 PM EST Gender Identity Not on file Sexual Orientation [...] Care Team (Late st Contact Info) Description 07/02/2024 11:00 AM EDT Office Visit Internal Medicine - [address] [address] Kaleb Sellers NP [address] [place] [address] 10/16/2024 9:00 AM EDT Office Visit Nephrology - [address] [address] Kayden Reynolds MD [address] [address] Health Maintenance Due Date Last Done Comments [...] Hepatitis C Screening Completed 02/12/2011 Pneumococcal Vaccine: 50+ Years Completed 07/05/2014, 02/16/2013 Zoster Vaccines Completed [...] patient's age to complete this topic Meningococcal B Vacine Aged Out No lo nger eligible based on patient's age to complete [...] abnormality. -------- FINAL REPORT -------- Dictated By: RONDEY NOVAK Dictated Date: 05/11/2024 13:14 ET Assigned Physician: RODNEY NOVAK Reviewed and Electronically Signed By: RODNEY NOVAK Signed Date: 05/11/2024 13:39 ET Workstation ID: [id number] Transcribed By: Self Edit Transcribed Date: 05/11/2024 [...] right foraminal protrusion contacting the exiting right E4iceyf. Severe right and moderate left foraminal stenosis. [...] Signed Date: 05/11/2024 13:39 ET Workstation ID: [id number] Transcribed By: Self Edit Transcribed Date: 05/11/2024 13:14 ET Erik Alas MD IMG MRI PROCEDURES Final Result * KALPESH SCREENING DIGITAL (11/07/2023 12:06 PM EDT) Anatomical Region Laterality Modality Mammography 11/07/2023 9:24 AM EDT Narrative 11/07/2023 12:06 PM EDT [facility] Diagnostic Imaging Department [address] [place] [address] Patient: ??MINNA RODRIGUEZ ?/Age/Sex: 1945 - 77 - F Unit#: ??[id number] ? Location/Status: ??SPDIMAM/REG CLI ? Mnemonic/Ordering Site: ??DIGSC/SPMAM Ordering Physician: ??KALEB SELLERS METAL CHECKER [facility] Screening Digital - 11/07/23 - 954 Report Status:Signed EXAM: [facility] Screening Digital EXAM DATE AND TIME: 11/07/2023 9:56 AM HISTORY: ??Screening. Previous left breast biopsy, pathology benign. Mother had breast carcinoma. COMPARISON: ??11/04/21, 07/15/20, 03/27/19 TECHNIQUE: Bilateral digital breast tomosynthesis was performed in the CC and MLO projections. 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 TISSUE DENSITY: b. [...] [facility] Diagnostic Imaging Department [address] [place] [address] Patient: MINNA RODRIGUEZ /Age/Sex: 1945 - 77 - F Unit#: [id number] [facility] CLI Mnemonic/Ordering Site: [facility] Ordering Physician: KALEB SELLERS NP [facility] Screening Digital - 11/07/23 - 0955 Report Status:Signed EXAM: [facility] Screening Digital EXAM DATE AND TIME: 11/07/2023 9:56 AM HISTORY: Screening. Previous left breast biopsy, pathology benign. Motherhad breast carcinoma. COMPARISON: 11/04/21, 07/15/20, 03/27/19 TECHNIQUE: Bilateral digital breast tomosynthesis was performed in the CCand MLO projections. Computer aided detection with [employer] 3D 3.1was employed. TISSUE DENSITY: b. There [...] Sign date/Time: 11/07/23 1206 Kaleb Sellers NP IM BI PROCEDURES Final Result * DXA BONE DENSITY STUDY 1+ SITS [...] (World Health Organization Fracture Risk Assessment) [facility] Department of Internal Medicine recommends using [...] alternative screening schedule based on zo Dyer., [facility] April 29, 2011 for patients with osteopenia [...] years. (World HealthOrganization Fracture Risk Assessment) [facility] Department of Internal Medicine recommendsusing [...] screening schedule based on danielle Dyer al., [facility] for patients with osteopenia (based on hip BMD T-score) is as follows: * advanced osteopenia (T scores -2.00 to -2.49), BMD testing every year * moderate osteopenia (T scores -1.50 to -1.99), BMD testing every 5years mild osteopenia or normal BMD (T scores -1.50 and higher), BMD testingevery 15 years Kaleb Sellers NP IMG DXA PROCEDURES Final Result * (ABNORMAL) Lipid panel (02/15/2023) [facility] Triglycerides 75 mg/dL Cholesterol 198 mg/dL HDL 76 mg/dL LDL Cholesterol 107(A) 0 - 100 mg/dL Blood Venous blood specimen / Unknown Historical Provider LAB BLOOD ORDERABLES Lennie l Result * Colonoscopy (04/24/2019) [facility] Colonoscopy ABNORMAL, REPEAT IN 5 YEARS Anatomical Region Laterality Modality Other Historical Provider HEALTH MAINTENANCE Final Result * Hepatitis C Screening (02/12/2011) [facility] Hepatitis C Screening NEGATIVE NEGATIVE - POSITIVE us Historical Provider HEALTH MAINTENANCE Final Result from Last 3 Months or Most Recently Relevant to Health Maintenance Insurance MEDICARE [facility] Care Teams Therapy Site Coordinator Relationship Specialty Start Date End Date Keke Aly DO [address] [place] [address] PCP - General 11/16/22
== END 2024-06-18 10:07 | disposition home or self-care (01) ==
PROVIDERS: PCP Nurse Practitioner; Visit Provider Physician Assistant
DX: M54.12 Radiculopathy, cervical region (principal)
CPT/HCPCS: 99024

== ENCOUNTER → 2024-06-18 09:43 | Outpatient (BNVA) | payer MEDICARE, OTHER, SELFPAY | PROVIDERS: PCP Nurse Practitioner; Visit Provider Physician Assistant | DX: M54.12 Radiculopathy, cervical region (principal) | CPT/HCPCS: 99212 ==

== ENCOUNTER 2024-08-07 13:35 | Outpatient (AMB) | payer MEDICARE, OTHER, SELFPAY ==
--- NOTE | 2024-08-07 13:38 | HO.SPINEOV ---
Intake Visit Reasons: 2nd post op Intake Note: Ms. Clifford is here today for her 2nd post op visit. 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 Allergies azithromycin Allergy (Intermediate, Verified 08/07/24 13:52) Hives erythromycin base Allergy (Intermediate, Verified 08/07/24 13:52) Hives hydrocodone Allergy (Intermediate, Verified 08/07/24 13:52) shaky, rapid heart beat hydromorphone [From Dilaudid] Allergy (Intermediate, Verified 08/07/24 13:52) Nausea and Vomiting lactose Allergy (Intermediate, Verified 08/07/24 13:52) Gastrointestinal Upset nickel Allergy (Intermediate, Verified 08/07/24 13:52) contact rash oxycodone Allergy (Intermediate, Verified 08/07/24 13:52) shaky,rapid heartbeat piroxicam [From Feldene] Allergy (Intermediate, Verified 08/07/24 13:52) Shortness of Breath Sulfa (Sulfonamide Antibiotics) Allergy (Intermediate, Verified 08/07/24 13:52) hives Assessment & Plan Assessment & Plan (1) S/P cervical spinal fusion: Code(s): Z98.1 - Arthrodesis status Category: Surgical Plan Operation: Right C8 foraminotomy 06/07/24 Minna is a pleasant 78 year old female who underwent a right C8 foraminotomy about [address] Alas. She comes in today for his 2nd postoperative visit. To recap at her last visit she was still reporting some pain in her shoulders, worse on the right side. We discussed how the shoulder pain is very common with posterior cervical surgeries as the trapezius muscle is cut through for exposure of the cervical spine. Thankfully, today she reports resolution of the symptoms. She states that she feels 100% better than she did prior to surgery and is very satisfied overall with her surgery. No new neurological deficits. The patient ambulates well and rises from a seated position independently. Her gait is non-antalgic & non-spastic. Her postorior incision site is closed and well healed. There is no need for continued routine follow up with Minna, she may be discharged as a patient. John Alas MD,PhD [facility] [employer] [facility] [employer] Coding Level of Care Code Global (03709) Diagnoses S/P cervical spinal fusion Z98.1
--- OUTSIDE RECORDS SUMMARY | 2024-08-07 15:40 | XMS_ITS | Data Portability ---
Author Organization GABRIELA Mason [facility], [address] Address [address] [place] [address] Assessment No assessment recorded. Plan of Treatment Reminders Order Date Submit Date Provider Last Modified By Organization Details Last Modified Time Details Appointments None recorded. Lab urinalysis , dipstick 2022 023 [email or web address] [address], [address] [place], [address], 15:10:40 Referral None recorded. Procedures None recorded. Surgeries None recorded. Imaging XR, chest + abdomen 2022 023 [email or web address] [facility], [address] [place] [address], [id number], 15:13:47 Medication Orders None recorded. Patient TargetsNo targets recorded. Patient Instructions Encounter Date Encounter Id Patient Instructions Last Modified By Organization Details Last Modified Time 08/14/2022 [id number] constipation: care instructions [id number] Not available 08/14/2022 15:11:44 You can take ove r the counter tylenol or ibuprofen per package instructions for the pain. See printed instructions. Follow-up with your doctor as scheduled later this month. Seek Emergency Medical evaluation for any worsening symptoms. [email or web address] Not available 08/17/2022 14:48:50 Reason for Referral None Reported. Results Created Date Observation Date Name Description Value Unit Range Abnormal Flag Note LastModifiedBy Organization Detail LastModifiedTime 08/15/19 23 08/14/2022 urina lysis , dipst ick Unknown Analyte Normal = light yellow Not Available [id number] [place], [address], 08/14/2022 12:47:08 08/15/1908/14/2022 urina lysis , dipst ick Unknown Analyte Yellow Not Available [id number] [place] [address] [address] [place], [address], 08/14/2022 12:47:08 08/15/19 23 08/14/2022 urina lysis , dipst ick Unknown Analyte Normal = clear Not Available [address] [place], [address], 08/14/2022 12:47:08 08/15/1908/14/2022 urina lysis , dipst ick Unknown Analyte Clear Not Available [address] [place] [address] [address] [place], [address], 08/14/2022 12:47:08 08/15/1908/14/2022 urina lysis , dipst ick Unknown Analyte Normal = negati ve Not Available [address] [place], [address], 08/14/2022 12:47:08 08/15/19 23 08/14/2022 urina lysis , dipst ick Unknown Analyte Negati ve Not Available [address] [place], [address], 08/14/2022 12:47:08 08/15/19 23 08/14/2022 urina lysis , dipst ick Unknown Analyte Normal = Negati ve Not Available [address] [place], [address], 08/14/2022 12:47:08 08/15/19 23 08/14/2022 urina lysis , dipst ick Unknown Analyte Negati ve Not Available [address] [place], [address], 08/14/2022 12:47:08 08/15/1908/14/2022 urina lysis , dipst ick Unknown Analyte Normal = Negati ve Not Available [address] [place], [address], 08/14/2022 12:47:08 08/15/1908/14/2022 urina lysis , dipst ick Unknown Analyte Negati ve Not Available [address] [place], [address], 08/14/2022 12:47:08 08/15/1908/14/2022 urina lysis , dipst ick Unknown Analyte Normal = 1.010, 1.015, 1.020 Not Available [address] [place], [address], 08/14/2022 12:47:08 08/15/1908/14/2022 urina lysis , dipst ick Unknown Analyte 1.020 Not Available [facility] [address] [place], [address], 08/14/2022 12:47:08 08/15/1908/14/2022 urina lysis , dipst ick Unknown Analyte Normal = Negati ve Not Available [address] [place], [address], 08/14/2022 12:47:08 08/15/1908/14/2022 urina lysis , dipst ick Unknown Analyte Negati ve Not Available [address] [place], [address], 08/14/2022 12:47:08 08/15/19 23 08/14/2022 urina lysis , dipst ick Unknown Analyte Normal = 6.5, 7.0, 7.5, 8.0 Not Available [address] [place], [address], 08/14/2022 12:47:08 08/15/19 23 08/14/2022 urina lysis , dipst ick Unknown Analyte 5.5 Not Available [facility] [address] [place], [address], 08/14/2022 12:47:08 08/15/1908/14/2022 urina lysis , dipst ick Unknown Analyte Normal = Negati ve Not Available [address] [place], [address], 08/14/2022 12:47:08 08/15/19 23 08/14/2022 urina lysis , dipst ick Unknown Analyte Negati ve Not Available [address] [place], [address], 08/14/2022 12:47:08 08/15/19 23 08/14/2022 urina lysis , dipst ick Unknown Analyte Normal = 0.2, 1.0 Not Available [address] [place], [address], 08/14/2022 12:47:08 08/15/19 23 08/14/2022 urina lysis , dipst ick Unknown Analyte 0.2 E.U./d L Not Available [address] [place], [address], 08/14/2022 12:47:08 08/15/19 23 08/14/2022 urina lysis , dipst ick Unknown Analyte Normal = Negati ve Not Available [address] [place], [address], 08/14/2022 12:47:08 08/15/1908/14/2022 urina lysis , dipst ick Unknown Analyte Negati ve Not Available [address] [place], [address], 08/14/2022 12:47:08 08/15/1908/14/2022 urina lysis , dipst ick Unknown Analyte Normal = Negati ve Not Available [address] [place], [address], 08/14/2022 12:47:08 08/15/19 23 08/14/2022 urina lysis , dipst ick Unknown Analyte Negati ve Not Available [address] [place], [address], 08/14/2022 12:47:08 08/15/1908/14/2022 XR, chest + abdom en No observ ation record ed. [id number] [facility] [address] [place] [address], [address], 08/14/2022 16:00:29 Result Notes None recorded. Problems Name Problem SNOMED Code Status Onset Date Resolution Date Notes Provider Name and Address Organization Details Recorded Time Rheumatoid arthritis 39005422 Active 2022 RIRI DEPINTO null, [place] - [facility] 3 12:52:18 Hypertensive disorder 13639836 Active 2022 RIRI DEPINTO null, PA - [facility] 12:52:47 Hypercholestero lemia 95287666 Active 2022 RIRI DEPINTO null, PA - [...] Time 08/14/2022 XR, chest + abdomen completed [id number] [facility] [address] [facility] [place], [address], 08/14/2022 16:00:29 Procedure Notes None recorded. Medical Equipment None Reported. Allergies Allergen ID Allergen Name Allergen Category Reaction Reaction Severity Criticality Documentation Date Start Date Code Code System Note Provider Name and Address Organization Details Recorded Time 855325 erythromy edis medicatio n swelling Not available Not available 08/14/2022 4053 RxNorm RIRI DEPINTO null, PA - [facility] 12:49:36 104112 Feldene medicatio n swelling Not available Not available 08/14/2022 41295 8 RxNorm RIRI DEPINTO null, PA - [facility] 12:49:49 619455 Substance with sulfonami de structure and antibacte rial mechanism of action (substanc e) medicatio n dyspnea Not available Not available 08/14/2022 55057 8003 SNOMED RIRI DEPINTO null, PA - [facility] 12:50:00 045333 lactose food,medi cation Not available Not available Not available 08/14/2022 6211 RxNorm RRII DEPINTO null, PA - [facility] 12:50:17 265302 oxycodone medicatio n swelling Not available Not available 08/14/2022 7804 RxNorm Yasemin Derase null, PA - [facility] 14:02:54 950896 hydrocodo ne Not available swelling Not available [...] Updated DateTime 3 160.02 cm 27.5 kg/m2 38751.8 2 g 0 18 /min 100 % [...] SNOMED-CT Code Diagnosis ICD10 Code Diagnosis Note [id number] [address] [place] [address] 07/05/2020 16:48:47 07/05/2020 18:15:44 [id number] [address] [place] [address] 10/22/2018 18:32:01 10/22/2018 20:03:54 [id number] [address] [address] [place] [address] 07/08/2019 08:11:26 07/08/2019 09:03:57 [id number] [address] [place] [address] 12/04/2015 17:11:31 12/04/2015 17:54:15 [id number] [address] [place] [address] 06/18/2018 09:49:11 06/18/2018 11:06:51 [id number] MARGARITO STEIN MD [address] [facility] CHAD bautista [address] 08/14/2022 12:14:45 08/14/2022 15:13:46 Right lower quadrant pain 264996003 R10.31 Constipation 35422533 K5 9.00 Patient presents with constipati on. [...] ID Guarantor Name 06/18/2018 1 MEDICARE B-[place]: [facility] Minna Muller Darrin [id number] Minna Daly Clifford 06/18/2018 2 UNICARE - GIC - MEDICARE EXTENSION (INDEMNITY) [id number] Darrin [id number] Minna Daly Clifofrd 10/22/2018 1 [place]ICARE [place]: [facility] Minna Muller Clifford [id number] Minna Daly Clifford 10/22/2018 2 UNICARE - GIC - MEDICARE EXTENSION (INDEMNITY) [id number] Ancel[address] W Darrin [id number] Minna Daly Darrin 07/08/2019 1 [place]IC[place]: [facility] Minna Yohana Darrin [id number] 62 Minna Daly Darrin 07/08/2019 2 UNICARE - GIC - MEDICARE EXTENSION (INDEMNITY) [id number] Ancelmo W Darrin [id number] Minna Daly Clifford 07/05/2020 1 MEDICARE B-[place]: [facility] Imnna Yohana Darrin [id number] Minna Daly Darrin 07/05/2020 2 UNICARE - GIC - MEDICARE EXTENSION (INDEMNITY) [id number] Ancelmo Clifford [id number] Minna Clifford 08/14/2022 1 MEDICARE B-[place]: [facility] Minna Clifford [id number] 62 Minna Clifford 08/14/2022 2 UNICARE - GI - MEDICARE EXTENSION (INDEMNITY) [id number] Ancelmo Clifford [id number] Minna Clifford Notes Date Note Type Note [...] her appendix removed. MARGARITO STEIN MD [address] [facility] [place], [address], [place] - [facility] 08/17/2022 14:50:13 OBGyn Episode No OBEpisode recorded.
--- OUTSIDE RECORDS SUMMARY | 2024-08-07 15:40 | XMS_ITS | Clinical Summary ---
Author Organization [facility] Address [address] [place] [address] Phone Care Team Providers Care Premium Service Representative Name Role Phone Keke Aly DO Primary Care Provider [phone] Allergies Active Allergy Reactions Criticality Noted Date Comments Contact Metal Agent 07/02/2024 Erythromycin Hives 04/26/2005 Hydrocodone Nausea And Vomiting 09/15/2016 Hydromorphone 07/02/2024 Lactose GI intolerance 07/02/2024 Lisinopril 05/14/2009 Oxycodone Nausea And Vomiting 06/28/2013 Piroxicam Hives 04/26/2005 Sulfacetamide Sodium Hives 04/26/2005 Medications methotrexate 2.5 mg tablet Take 3 tablets (7.5 mg total) by mouth 1 (one) time per week 06/12/19 22 Active cholecalciferol (VITAMIN D-3) 50 mcg (2,000 unit) capsule Take 1 capsule (2,000 Units total) by mouth 1 (one) time each day. Active acetaminophen (TYLENOL) 500 mg tablet Take 1 tablet (500 mg total) by mouth if needed. Active calcium carbonate/vitami n D3 (CALCIUM 600 + D,3, ORAL) Take 1 tablet by mouth 1 (one) time each day. Active atorvastatin (LIPITOR) 80 mg tabletIndication s:Hyperlipidemia , unspecified TAKE 1 TABLET BY MOUTH EVERY DAY 90 tablet 1 04/30/19 25 Active amLODIPine (NORVASC) 10 mg tabletIndication s:Essential hypertension Take 1 tablet (10 mg total) by mouth 1 (one) time each day. 90 each 1 07/03/19 25 025 Active clopidogreL (PLAVIX) 75 mg tabletIndication s:History of CVA (cerebrovascular accident) Take 1 tablet (75 mg total) by mouth 1 (one) time each day. 90 each 1 07/03/19 25 025 Active folic acid (FOLVITE) 1 mg tabletIndication s:Rheumatoid arthritis with rheumatoid factor, unspecified ([facility] V24, [facility] V28) TAKE 1 TABLET BY MOUTH EVERY DAY 90 tablet 07/21/19 25 Active folic acid (FOLVITE) 1 mg tablet Take 1 tablet (1,000 mcg total) by mouth 1 (one) time each day. 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 Right is S/P rotator cuff injury Hyperlipidemia 04/26/2005 Proteinuria 04/26/2005 Overview (12/29/2023): Present as far back as 1998 Seropositive rheumatoid arth ritis ([facility] V24, [facility] V28) 04/26/2005 Overview (12/29/2023): Dx from the past (in her 30's); varying activity, mostly low grade, no DMARD's ever. Neg GAMA but pos CCP Ab and RF Methotrexate started 03/21 Last Assessment & Plan: Continue methotrexate at 5 tab once a week and folic acid 1mg daily Lab in November and January Encounters Date Type Department Care Team Description 07/02/2024 11:00 AM EDT [facility] [address] [place] [address] Kaleb López, NEIL Cervical spinal stenosis (Primary Dx); H/O cervical discectomy; History of CVA (cerebrovascular accident); Essential hypertension; Mixed hyperlipidemia; Seropositive rheumatoid arthritis ([facility] V24, [facility] V28); History of kidney cancer; CKD (chronic kidney disease) stage 4, GFR 15-29 ml/min ([facility] V24, [facility] V28) 07/02/2024 [facility] [address] [facility] [place] [id number] Keke Aly, Forms/questionnaires (Handicap placard) 05/10/2024 6:37 PM EST - 05/10/2024 11:59 PM EST Hospital Encounter [facility] MRI [address] [place] [address] Radiculopathy, cervical region Discharge Disposition: Home or Self Care from Last 3 Months Immunizations Name Administration Dates Next Due Influenza, Unspecified 02/15/2023 PPD Test 10/28/2000,10/26/2000 [employer] SARS-CoV-2 COVID-19, mRNA, LNP-S, preservative free 08/23/2021,02/09/2021 [...] fibroids abd total hyst COLONOSCOPY 12/13/2007 PROCEDURE: OK COLONOSCOPY STOMA DX INCLUDING COLLJ SPEC SPX; COMMENT: Up to cecum, good preparation, mild diverticulosis, sigmoid polyp removed:Tubular adenoma COLONOSCOPY 03/20/2013 PROCEDURE: OK COLONOSCOPY STOMA DX INCLUDING COLLJ SPEC SPX; COMMENT: tics; repeat in 5 yrs BREAST SURGERY Bilateral PROCEDURE: OK UNLISTED PROCEDURE BREAST; COMMENT: bilat cysts removed [...] kidney disease) stage 4, GFR 15-29 ml/min (CMS/HCC V24, CMS/HCC V28) 11/27/2013 DX:CKD (chronic kidney disea se) stage 4, GFR 15-29 ml/min (HCC) Vertigo DX:Vertigo Family History Medical History Relation [...] Date Smoking Tobacco: Never Smokeless Tobacco: Never Tobacco Cessation:Counseling Given: Not Answered Alcohol Use Standard Drinks/Week Comments Not Currently 0 (1 standard drink = 0.6 oz pur e alcohol) Comments No Sex and Gender Information Value Date Recorded Sex Assigned at Not on file Legal Sex Female 8:46 PM EST Gender Identity Not on file Sexual Orientation Not on file Obstetrics History Last Filed Vital Signs Vital Sign Reading Time Taken Comments Blood Pressure 124/66 07/02/2024 10:56 AM EDT Pulse 65 07/02/2024 10:56 AM EDT Temperature - - Respiratory Rate - - Oxygen Saturation - - Inhaled Oxygen Concentration - - Weight 67.1 kg (148 lb) 07/02/2024 10:56 AM EDT Height 160 cm (5' 3 ) 02/23/2023 8:31 AM EST Body Mass Index 26.22 02/23/2023 8:31 AM EST Plan of Treatment Upcoming Encounters Date Type Department Care Team (Late st Contact Info) Description 08/08/2024 1:30 PM EDT Consult Internal Medicine - [address] [phone] Kaleb López NP [address] [place] [address] 10/16/2024 9:00 AM EDT Office Visit Nephrology - [address] [phone] Kayden Reynolds MD [address] [phone] 11/01/2024 9:30 AM EDT Office Visit Internal Medicine - [address] [phone] Keke Aly, [address] [place] [id number] Health Maintenance Due Date Last Done Comments Depression Screening 03/20/2022 Falls Risk Assessment 03/20/2022 Medicare Annual Wellness Visit 03/20/2022 Social Influencers of Health Screening 03/20/2022 RSV Immunization Adult Patients (1 - 1-dose 75+ series) 12/06/2022 COVID-19 Vaccine (10 - Pfizer risk 2023- season) 2024 01/28/2024, 01/10/2023, 02/15/2022, Additional history exists Hypertension/CHF/CAD Annual BMP Blood Test 07/02/2025 07/02/2024, 09/26/2023 DTaP,Tdap,and Td Vaccines (3 - Td or Tdap) 01/26/2028 01/25/2018, 08/30/2007 Colorectal Cancer Screening: Colonoscopy 04/24/2029 04/24/2019 Cholesterol Screening (Lipid Panel) 07/02/2029 07/02/2024, 02/15/2023 Osteoporosis Screening (Bone Density Screening) 10/19/2033 10/20/2023, 10/20/2023, 08/13/2020, Additional history exists Hepatitis C Screening Completed 02/12/2011 Pneumococcal Vaccine: 50+ Years Completed 07/05/2014, 02/16/2013 Zoster Vaccines Completed 05/18/2021, 04/12, 02/23/2021 Breast Cancer Screening Discontinued 11/07/19, 11/04/2021, 07/16/2020, Additional history exists Influenza Vaccine [...] age to complete this topic Meningococcal B Vaccine Aged Out No l onger eligible based on patient's age to complete this topic RSV Immunization Patients Under 20 months Aged Out No longer eligible based on patient's age to complete this topic Varicella Vaccines Aged Out No longer eligible based on patient's age to complete this topic Procedures Procedure Name Priority Date/Time Associated Diagnosis Comments LIPID PANEL WITH REFLEX TO DIRECT LDL Routine 07/02/2024 12:00 PM EDT Mixed hyperlipidemia COMPREHENSIVE METABOLIC PANEL Routine 07/02/2024 12:00 PM EDT Mixed hyperlipidemia MR CERVICAL SPINE WO CONTRAST Routine 05/10/2024 8:12 PM EST Radiculopathy, cervical region KALPESH SCREENING DIGITAL Routine 11/07/2023 12:06 PM EDT Encounter for screening mammogram for malignant neoplasm of breast DXA BONE DENSITY STUDY 1+ SITS AXIAL SKEL Routine 10/20/2023 8:45 AM EDT Encounter for screening for osteoporosis COLONOSCOPY Routine 04/24/2019 HEPATITIS C SCREENING Routine 02/12/2011 from Last 3 Months or Most Recently Relevant to Health Maintenance Results * Lipid panel with reflex to direct LDL (07/02/2024 12:00 PM EDT) [facility] Cholesterol 178 0 - 200 mg/dL LAB CHEMISTRY METHOD 07/02/2024 5:13 PM EDT [facility] Triglycerides 34 0 - 150 mg/dL LAB CHEMISTRY METHOD 07/02/2024 5:13 PM EDT [facility] HDL 81 >=40 mg/dL LAB CHEMISTRY METHOD 07/02/2024 5:13 PM EDT [facility] LDL Calculated 90 0 - 100 mg/dL LAB CHEMISTRY METHOD 07/02/2024 5:13 PM EDT [facility] VLDL Cholesterol Eladio 6.8 mg/dL LAB CHEMISTRY METHOD 07/02/2024 5:13 PM EDT [facility] Non HDL Chol. (LDL+VLDL) 97 <145 mg/dL LAB CHEMISTRY METHOD 07/02/2024 5:13 PM EDT [facility] Chol/HDL Ratio 2.2 0.0 - 4.4 LAB CHEMISTRY METHOD 07/02/2024 5:13 PM EDT [facility] Blood Venous blood specimen / Unknown Venipuncture / Unknown 07/02/2024 12:00 PM EDT 07/02/2024 12:00 PM EDT us Kaleb López NP LAB BLOOD ORDERABLES Final Resul t [facility] [address] [place] [address], [place] [phone] * (ABNORMAL) Comprehensive metabolic panel (07/02/2024 12:00 PM EDT) Sodium 139 133 - 145 mmol/L LAB CHEMISTRY METHOD 07/02/2024 5:04 PM [facility] Potassium 4.0 3.5 - 5.5 mmol/L LAB CHEMISTRY METHOD 07/02/2024 5:04 PM [facility] Chloride 107 96 - 110 mmol/L LAB CHEMISTRY METHOD 07/02/2024 5:04 PM [facility] CO2 26 21 - 32 mmol/L LAB CHEMISTRY METHOD 07/02/2024 5:04 PM [facility] Anion Gap 6 3 - 11 LAB CHEMISTRY METHOD 07/02/2024 5:04 PM [facility] Glucose 83 70 - 100 mg/dL LAB CHEMISTRY METHOD 07/02/2024 5:04 PM [facility] BUN 23 5 - 25 mg/dL LAB CHEMISTRY METHOD 07/02/2024 5:04 PM [facility] Creatinine 1.47(H) 0.50 - 1.10 mg/dL LAB CHEMISTRY METHOD 07/02/2024 5:04 PM [facility] eGFR 37(L) >=60 mL/min/1. 73m2 LAB CHEMISTRY METHOD 07/02/2024 5:04 PM [facility] Comment:Calculation based on the??Chronic Kidney Disease Epidemiology Collaboration (CKD-EPI) equation refit??without adjustment for race. BUN/Creatinine Ratio 15.6 LAB CHEMISTRY METHOD 07/02/2024 5:04 PM [facility] Calcium 10.0 8.5 - 10.5 mg/dL LAB CHEMISTRY METHOD 07/02/2024 5:04 PM [facility] AST (SGOT) 15 10 - 42 unit/L LAB CHEMISTRY METHOD 07/02/2024 5:04 PM [facility] ALT (SGPT) 17 10 - 60 unit/L LAB CHEMISTRY METHOD 07/02/2024 5:04 PM EDT [facility] Alkaline Phosphatase 55 42 - 121 unit/L LAB CHEMISTRY METHOD 07/02/2024 5:04 PM EDT [facility] Total Protein 7.1 6.0 - 8.0 g/dL LAB CHEMISTRY METHOD 07/02/2024 5:04 PM EDT [facility] Albumin 3.8 3.2 - 5.0 g/dL LAB CHEMISTRY METHOD 07/02/2024 5:04 PM EDT [facility] Total Bilirubin 0.5 0.0 - 1.4 mg/dL LAB CHEMISTRY METHOD 07/02/2024 5:04 PM EDT [facility] Blood Venous blood specimen / Unknown Venipuncture / Unknown 07/02/2024 12:00 PM EDT 07/02/2024 12:00 PM EDT us Kaleb López NP LAB BLOOD ORDERABLES Final Resul t [facility] [address] [place] [address], * MR Cervical Spine wo Contrast (05/10/2024 [...] Signed Date: 05/11/2024 13:39 ET Workstation ID: [id number] Transcribed By: Self Edit Transcribed Date: 05/11/2024 [...] right foraminal protrusion contacting the exiting right [id number]. Severe right and moderate left foraminal stenosis. [...] Signed Date: 05/11/2024 13:39 ET Workstation ID: [id number] Transcribed By: Self Edit Transcribed Date: 05/11/2024 13:14 ET us Erik Alas MD IMG MRI PROCEDURES Final Result * KALPESH SCREENING DIGITAL (11/07/2023 12:06 PM EDT) Anatomical Region Laterality Modality Mammography 11/07/2023 9:24 AM EDT Narrative 11/07/2023 12:06 PM EDT [facility] Diagnostic Imaging Department [address] [place], [place] [id number] Patient: ??MINNA RODRIGUEZ ?/Age/Sex: 1945 - 77 - F Unit#: ??[id number] ? Location/Status: ??SPDIMAM/REG CLI ? Mnemonic/Ordering Site: ??DIGSC/SPMAM Ordering Physician: ??KALEB LÓPEZ SUPPLY CRIB ATTENDANT [facility] Screening Digital - 11/07/23 - 954 Report Status:Signed EXAM: [facility] Screening Digital EXAM DATE AND TIME: 11/07/2023 9:56 AM HISTORY: ??Screening. Previous left breast biopsy, pathology benign. Mother had breast carcinoma. COMPARISON: ??11/04/21, 07/15/20, 03/27/19 TECHNIQUE: Bilateral digital breast tomosynthesis was performed in the CC and MLO projections. Computer aided detection with Aut[employer] 3D 3.1 was employed. TISSUE DENSITY: b. [...] Procedure Note Estela Rose MD - 01/25/2024 [facility] Diagnostic Imaging Department [address] [place] [address] Patient: MINNA RODRIGUEZ Addy /Age/Sex: 1945 - 77 - F Unit#: [id number] Location/Status: SPDIMAM/REG CLI Mnemonic/Ordering Site: [facility] Ordering Physician: KALEB LÓPEZ NP [facility] Screening Digital - 11/07/23 - 954 Report Status:Signed EXAM: [facility] Screening Digital EXAM DATE AND TIME: 11/07/2023 9:56 AM HISTORY: Screening. Previous left breast biopsy, pathology benign. Motherhad breast carcinoma. COMPARISON: 11/04/21, 07/15/20, 03/27/19 TECHNIQUE: Bilateral digital breast tomosynthesis was performed in the CCand MLO projections. Computer aided detection with Autocosta 3D 3.1was employed. TISSUE DENSITY: b. There [...] Date/Time: 11/07/23 1206 Sign date/Time: 11/07/23 1206 us Kaleb Lpóez NP IMG BI PROCEDURES Final Result * DXA BONE [...] (World Health Organization Fracture Risk Assessment) The [facility] Department of Internal Medicine recommends using [...] alternative screening schedule based on zo Dyer., [facility] April 29, 2011 for patients [...] years. (World HealthOrganization Fracture Risk Assessment) The [facility] Department of Internal Medicine recommendsusing National [...] alternative screening schedule based on zo Dyer., NEJMJanuary 2011 for patients with osteopenia (based on hip BMD T-score) is as follows: * advanced osteopenia (T scores -2.00 to -2.49), BMD testing every year * moderate osteopenia (T scores -1.50 to -1.99), BMD testing every 5years mild osteopenia or normal BMD (T scores -1.50 and higher), BMD testingevery 15 years Kaleb López SUPPLY CRIB ATTENDANT IMG DXA PROCEDURES Final Result * Colonoscopy (04/24/2019) [facility] Colonoscopy ABNORMAL, REPEAT IN 5 YEARS Anatomical Region Laterality Modality Other Historical Provider HEALTH MAINTENANCE Final Result * Hepatitis C Screening (02/12/2011) [facility] Hepatitis C Screening NEGATIVE NEGATIVE - POSITIVE Historical Provider HEALTH MAINTENANCE Final Result from Last 3 Months or Most Recently Relevant to Health Maintenance Insurance MEDICARE [facility] Care Teams Premium Service Representative Relationship Specialty Start Date End Date Keke Aly DO [address] [place] [address] PCP - General 11/16/22
== END 2024-08-07 14:44 | disposition home or self-care (01) ==
LOC: HO.HNS 13:35
PROVIDERS: PCP Nurse Practitioner; Visit Provider Physician Assistant
DX: Z98.1 Arthrodesis status (principal)
CPT/HCPCS: 99024

== ENCOUNTER → 2024-08-07 13:35 | Outpatient (BNVA) | payer MEDICARE, OTHER, SELFPAY | PROVIDERS: PCP Nurse Practitioner; Visit Provider Physician Assistant | DX: Z47.89 Encounter for other orthopedic aftercare (principal); Z98.1 Arthrodesis status | CPT/HCPCS: 99212 ==

== ENCOUNTER 2024-12-31 11:18 | Outpatient (AMB) | payer MEDICARE, OTHER, SELFPAY ==
--- OUTSIDE RECORDS SUMMARY | 2024-12-27 15:15 | XMS_ITS | Encounter Summary ---
Author Organization [facility] Address [address] [place] [phone] Phone Care Team Providers Care Fishing Vessel Mate Name Role Phone Rene Quyen TREJO Primary Care Provider Unavailabl e Reason for Visit * Reason Comments Chronic Kidney Disease Encounter Details Date Type Department Care Team (Late st Contact Info) Description 12/27/2024 3:15 PM EDT Office Visit [facility] [address] [phone] Kayden Reynolds MD [address] [phone] Stage 3 chronic kidney disease, not otherwise specified (HCC) (Primary Dx); Hypertension; History of nephrectomy; Other proteinuria Social History Tobacco Use Types Packs/Day Years Used Date Smoking Tobacco: Never Smokeless Tobacco: Never Tobacco Cessation:Counseling Given: Not Answered Comments Unknown Sex and Gender Information Value Date Recorded Sex Assigned at Not on file Legal Sex Female 11:58 AM EDT Gender Identity Not on file Sexual Orientation Not on file documented as of this encounter Last Filed Vital Signs Vital Sign Reading Time Taken Comments Blood Pressure 95/54 12/27/2024 3:32 PM EDT Pulse 64 12/27/2024 3:32 PM EDT Temperature - - Respiratory Rate - - Oxygen Saturation - - Inhaled Oxygen Concentration - - Weight 64 kg (141 lb) 12/27/2024 3:32 PM EDT Height - - Body Mass Index - - documented in this encounter Progress Notes * Kayden Reynolds MD - 12/27/2024 3:15 PM EDT [facility] Patient Name: Minna Clifford, Female Date of : 1945, 79 y.o. Date: 12/27/2024 Referring MD: No primary care provider on file. PCP: Quyen López NP Reason For Visit: I had the pleasure of seeing your patient for follow up of CKD. The following portions of the patient's chart were reviewed in this encounter and updated as appropriate: Allergies Meds Problems Med Hx Surg Hx Fam Hx Constitutional: Negative for chills, fever, malaise/fatigue and weight loss. HENT: Negative for ear pain, hearing loss and tinnitus. Eyes: Negative for blurred vision, double vision, photophobia and pain. Respiratory: Negative for cough, hemoptysis, sputum production, shortness of breath and wheezing. Cardiovascular: Negative for chest pain, palpitations, orthopnea, claudication and leg swelling. Gastrointestinal: Negative for abdominal pain, diarrhea, nausea and vomiting. Genitourinary: Negative for dysuria, flank pain, frequency, hematuria and urgency. Musculoskeletal: Negative for myalgias. Skin: Negative for itching and rash. Neurological: Negative for dizziness, tingling and headaches. Psychiatric/Behavioral: Negative for depression. Full 13 point review of systems unremarkable except as noted above. Past Medical History: Diagnosis Date Adenoma of sigmoid colon Cerebral atherosclerosis Cerebrovascular accident (HCC) Chronic kidney disease Essential hypertension Other and unspecified hyperlipidemia Proteinuria Rheumatoid arteritis (HCC) Vertigo Past Surgical History: Procedure Laterality Date APPENDECTOMY BREAST SURGERY COLONOSCOPY HYSTERECTOMY NEPHRECTOMY Right 09/2020 SPINE SURGERY Social History Tobacco Use Smoking status: Never Smokeless tobacco: Never Substance Use Topics Alcohol use: Not on file Family History Problem Relation Age of Onset Breast cancer Mother Gout Father Alcohol abuse Sister Prostate cancer Brother Dementia Neg Hx Current Outpatient Medications Medication Sig Dispense Refill acetaminophen (TYLENOL) 500 MG tablet Take 500 mg by mouth atorvastatin (LIPITOR) 80 MG tablet Take 80 mg by mouth in the morning. brimonidine (ALPHAGAN) 0.2 % ophthalmic solution 1 drop in the morning and 1 drop at noon and 1 drop in the evening. Calcium Carb-Cholecalciferol (CALCIUM CARBONATE-VITAMIN D3 PO) Take 1 tablet by mouth in the morning. Calcium Citrate-Vitamin D 250-5 MG-MCG tablet Take 1 tablet by mouth in the morning. Cholecalciferol 50 MCG (2000 UT) capsule Take 2,000 Units by mouth in the morning. clopidogrel (PLAVIX) 75 MG tablet Take 75 mg by mouth in the morning. folic acid (FOLVITE) 1 MG tablet Take 1,000 mcg by mouth in the morning. losartan (COZAAR) 100 MG tablet Take 100 mg by mouth in the morning. methotrexate 2.5 MG tablet Take 7.5 mg by mouth amLODIPine (NORVASC) 5 MG tablet Take 1.5 tablets (7.5 mg total) by mouth 1 (one) time each day 45 tablet 5 No current facility-administered medications for this visit. Allergies Allergen Reactions Azithromycin Copper Chloride Erythromycin Hives Hydrocodone Nausea And Vomiting Hydromorphone Lactose GI intolerance Lisinopril Oxycodone Nausea And Vomiting Piroxicam Hives Sulfa Antibiotics Sulfacetamide Hives Objective: Vitals: 12/27/24 1532 BP: 95/54 Pulse: 64 Weight: 141 lb (64 kg) Physical Exam Constitutional: Oriented to person, place, and time. HEENT: Mouth/Throat: Oropharynx is clear and moist. Eyes: Pupils are equal, round, and reactive to light. Neck: No JVD present. Cardiovascular: Regular rhythm. Pulmonary/Chest: Breath sounds normal. Abdominal: Soft. There is no abdominal tenderness. Musculoskeletal: Normal range of motion. Neurological: Alert and oriented to person, place, and time. Skin: Skin is warm. Psychiatric: Normal mood and affect. No results found for: EGFRAFR No results found for: EGFRNAFR Chemistry Lab Units 10/09/24 0851 07/02/24 1200 CREATININE mg/dL 1.77* 1.47* BUN mg/dL 28* 23 BUN / CREAT RATIO 15.8 15.6 GLUCOSE mg/dL 83 83 POTASSIUM mmol/L 3.9 4 SODIUM mmol/L 142 139 CO2 mmol/L 26 26 CHLORIDE mmol/L 109 107 ALBUMIN g/dL 4 3.8 BILIRUBIN TOTAL mg/dL -- 0.5 AST unit/L -- 15 Bone Mineral Lab Units 10/09/24 0851 07/02/24 1200 CALCIUM mg/dL 9.8 10 PHOSPHORUS mg/dL 3.6 -- ALK PHOS unit/L -- 55 Urine Lab Units 10/09/24 0851 ALB MG/G CREAT UR mg/g creat 84* No lab exists for component: SPECGRAV , GLUCOSEUR , BILIRUBINUR , RBCUR , UPROTEIN , LEUKOCYTESUR , NITRITE PLAN: Assessment & Plan 1. Stage 3 chronic kidney disease, not otherwise specified (HCC) 2. Hypertension 3. History of nephrectomy 4. Other proteinuria Kidney function is back to 2023 level. It could be due to lower blood pressure. She has microscopic proteinuria. She has moderate CKD due to: -hypertensive kidney disease -nephron loss due to aging -residual kidney function loss from prior BULMARO She developed acute kidney injury due to renal hypoperfusion after right nephrectomy. There was no obstructive uropathy or paraproteinemia. Blood pressure is again on the low side. PLAN: Lower amlodipine to 7.5 mg daily Follow kidney function and electrolytes UPCR iPTH and vit D Avoid NSAID Low sodium diet Orders Placed This Encounter Renal funtion panel urine albumin / creatinine ratio PTH, intact Vit D 25 hydroxy amLODIPine (NORVASC) 5 MG tablet Return in 7 months (on 07/27/2025). Kayden Reynolds MD documented in this encounter Plan of Treatment Not on file documented as of this encounter Procedures Procedure Name Priority Date/Time Associated Diagnosis Comments URINE ALBUMIN / CREATININE RATIO Routine 12/28/2024 8:42 AM EDT Stage 3 chronic kidney disease, not otherwise specified (HCC) VITAMIN D 25 HYDROXY Routine 12/28/2024 8:42 AM EDT Stage 3 chronic kidney disease, not otherwise specified (HCC) PTH, INTACT Routine 12/28/2024 8:42 AM EDT Stage 3 chronic kidney disease, not otherwise specified (HCC) RENAL FUNCTION PANEL Routine 12/28/2024 8:42 AM EDT Stage 3 chronic kidney disease, not otherwise specified (HCC) documented in this encounter Results * (ABNORMAL) Vit D 25 hydroxy (12/28/2024 8:42 AM EDT) Vitamin D, 25-OH, Total 82.3(H) 30.0 - 80.0 ng/mL [facility] Blood Venous blood / Unknown 12/28/2024 8:42 AM EDT 12/28/2024 11:43 AM EDT us Kayden Reynolds MD LAB BLOOD ORDERABLES Final Resul t Performing Organization Address [facility] de Phone Number [facility] [address] [place] [address] * PTH, intact (12/28/2024 8:42 AM EDT) PTH 29.0 18.5 - 88.0 pcg/mL [facility] Blood Venous blood / Unknown 12/28/2024 8:42 AM EDT 12/28/2024 11:43 AM EDT us Kayden Reynolds MD LAB BLOOD ORDERABLES Final Resul t Performing Organization Address [facility] de Phone Number [facility] [address] [place] [address] * urine albumin / creatinine ratio (12/28/2024 8:42 AM EDT) Creatinine, Urine 152.0 mg/dL [facility] Microalbumin Urine Random 19.9 0.0 - 29.0 mg/L [facility] Microalbumin/Crea tinine Ratio 13 <30 mg/[facility] Urine Urine specimen obtained by clean catch procedure / Unknown 12/28/2024 8:42 AM EDT 12/28/2024 11:43 AM EDT us Kayden Reynolds MD LAB URINE ORDERABLES Final Resul t Performing Organization Address [facility] de Phone Number [facility] [address] [place] [address] * (ABNORMAL) Renal funtion panel (12/28/2024 8:42 AM EDT) Sodium 141 133 - 145 mmol/L [facility] Potassium 4.3 3.5 - 5.5 mmol/L [facility] Chloride 105 96 - 110 mmol/L [facility] Bicarbonate (CO2) 29 21 - 32 mmol/L [facility] Anion Gap 7 3 - 11 [facility] Glucose 88 70 - 100 mg/dL [facility] BUN 34(H) 5 - 25 mg/dL [facility] Creatinine Serum 1.71(H) 0.50 - 1.10 mg/dL [facility] eGFR 31(L) >=60 mL/min/1. 73m2 [facility] Comment:Calculation based on the Chronic Kidney Disease Epidemiology Collaboration (CKD-EPI) equation refit without adjustment for race. BUN/Creatinine Ratio 19.9 [facility] Albumin 3.9 3.2 - 5.0 g/dL [facility] Calcium 9.9 8.5 - 10.5 mg/dL [facility] Phosphorus 4.1 2.5 - 4.5 mg/dL [facility] Blood Venous blood / Unknown 12/28/2024 8:42 AM EDT 12/28/2024 11:43 AM EDT Narrative [place] - 12/28/2024 12:17 PM EDT Fasting?->No us Kayden Reynolds MD LAB BLOOD ORDERABLES Final Resul t [facility] [address] [place] [address] documented in this encounter Visit Diagnoses Diagnosis Stage 3 chronic kidney disease, not otherwise specified (HCC)- Primary Hypertension History of nephrectomy Other proteinuria documented in this encounter Care Teams Fishing Vessel Mate Relationship Specialty Start Date End Date Quyen López NP [address] [place] [address] PCP - General Nurse Practitioner 12/27/24 documented as of this encounter
[2024-12-31 11:26] VITALS: BMI 25.2
--- NOTE | 2024-12-31 11:26 | MHC.AMNUTRGE ---
VS Expanded 12/31/24 11:26 01/03/25 13:09 Height 5 ft 3 in 5 ft 3 in Weight 142 lb 6.698 oz 145 lb BMI 25.2 25.7 Intake Visit Reasons: History of kidney cancer Allergies azithromycin Allergy (Intermediate, Verified 08/07/24 13:52) Hives erythromycin base Allergy (Intermediate, Verified 08/07/24 13:52) Hives hydrocodone Allergy (Intermediate, Verified 08/07/24 13:52) shaky, rapid heart beat hydromorphone (From Dilaudid) Allergy (Intermediate, Verified 08/07/24 13:52) Nausea and Vomiting lactose Allergy (Intermediate, Verified 08/07/24 13:52) Gastrointestinal Upset nickel Allergy (Intermediate, Verified 08/07/24 13:52) contact rash oxycodone Allergy (Intermediate, Verified 08/07/24 13:52) shaky,rapid heartbeat piroxicam (From Feldene) Allergy (Intermediate, Verified 08/07/24 13:52) Shortness of Breath Sulfa (Sulfonamide Antibiotics) Allergy (Intermediate, Verified 08/07/24 13:52) hives Nutrition Presentation Details: Pt presents for MNT for stage 4 CKD Pt reports feeling well and energetic walks daily and travels frequently. pt reports potassium and phosphorus is wnl in recent labs with glass embosser Pt is looking to discuss meal planning GUP-Mnlotcn-Dq.Jeor Equation Height: 5 ft 3 in Weight: 145 lb Resting Metabolic Rate: 1117.34 Calculated Activity Level: Mild Activity Calories Needed to Maintain Weight: 1536.34 Diagnosis Nutrition problem #1: food nutri know defi As related to (etiology) #1: diagnosis As evidenced by (sign/symptom) #1: knowledge deficit of diet PFSH Medical History Diverticulitis CVA (cerebral vascular accident) Rotator cuff arthropathy of right shoulder assisted methotrexate user Osteoarthritis of glenohumeral joints, bilateral CKD (chronic kidney disease) stage 3, GFR 30-59 ml/min Hypertension Osteoarthritis of lumbar spine Seropositive rheumatoid arthritis Surgical History Hx of cervical spine surgery H/O colonoscopy History of breast lump/mass excision Hx of appendectomy Hx of hysterectomy History of nephrectomy, right Social History Household Members Other:: lives alone Housing: House Are you a primary customer care representative to a significant other at home: No Do you presently have visiting nurse or other home services: No 75 years or older and lives alone: No Alcohol intake: current Alcohol intake frequency: holidays/special occasions only Alcohol type: wine Comment: walks on treadmill 2X/week for about 20 minutes Patient Tobacco Use Status: Never used Tobacco e-Cigarette/Vaping Use: Never Used Current occupational status: retired Current occupation: rt handed Assessment & Plan Assessment & Plan (1) CKD (chronic kidney disease) stage 4, GFR 15-29 ml/min: Code(s): N18.4 - Chronic kidney disease, stage 4 (severe) Category: Medical Plan: current wt: 64 kg ( 01/03 ) est kcal needs as per MSJ: 1500 est protein needs as per 1 g/kg BW: 60 est fluid needs as per 30 ml/kg BW:1800 Recommended fiber > 12 g /day and gradually increase up to 25-28 g /day or as tolerated Nutrition topics discussed : Reviewed (R), Pt verbalized understanding (V) , not applicable (N/A) R, : Healthy Plate Method Concept. Natural low salt/sodium options and potion sizes of lean protein foods R, V, N/A: Carbohydrates: food sources of carbohydrates, relationship of carbohydrates to blood glucose, fatty liver GI health. Recommended total amount of carbohydrates per meals and snack. Differences between simple carbohydrates and complex carbohydrates R, V, N/A: Lean protein foods including vegan , vegetarian sources of protein. Benefits of protein (including but not limited to healing, nutritional value , benefits in weight loss, glucose control R, V, N/A: Fats : Source of fats, benefits of fats. Difference between saturated and unsaturated fats. Saturated fats and its contribution to inflammation R, V, N/A: Fiber: food sources and role of fiber in the diet (including but not limited to its role as a prebiotic, benefits in constipation, role in IBS , role in glucose control and cholesterol level) R, V, N/A: Hydration: role of hydration and prevention of dehydration or over hydration. Foods and water content. R, V, N/A: Vitamins and Minerals in foods and supplements R, V, N/A: Interpreting food labels, including serving size, macronutrients, vitamins, minerals, allergens, ingredient list , % daily value Patient Instructions: Include a variety of lean protein foods (lengumes/beans, eggs, fish , poultry, and red meats,less often_ watch on portion sizes 2-3 oz serving per meal (2-3 meals/day) Have oatmeal twice a week when eating out choose sauces/seasoning on the side see meal idea for CKD Coding Level of Care Code Nutr Indiv Intake (22769) Diagnoses CKD (chronic kidney disease) stage 4, GFR 15-29 ml/min N18.4 Time Spent (min) 30
--- OUTSIDE RECORDS SUMMARY | 2024-12-31 14:00 | XMS_ITS | Clinical Summary ---
Author Organization [facility] Address [address] [place] [phone] Phone Care Team Providers Care Hatchery Manager Name Role Phone Quyen López NP Primary Care Provider Unavailabl e Allergies Active Allergy Reactions Criticality Noted Date Comments Azithromycin 12/27/2024 Copper Chloride 07/02/2024 Erythromycin Hives 04/26/2005 Hydrocodone Nausea And Vomiting 09/15/2016 Hydromorphone 07/02/2024 Lactose GI intolerance 07/02/2024 Lisinopril 05/14/2009 Oxycodone Nausea And Vomiting 06/28/2013 Piroxicam Hives 04/26/2005 Sulfa Antibiotics 12/27/2024 Sulfacetamide Hives 04/26/2005 Medications methotrexate 2.5 MG tablet Take 7.5 mg by mouth 06/19/19 Active losartan (COZAAR) 100 MG tablet Take 100 mg by mouth in the morning. 06/19/19 Active folic acid (FOLVITE) 1 MG tablet Take 1,000 mcg by mouth in the morning. 06/19/19 19 Active Cholecalcifero l 50 MCG (2000 UT) capsule Take 2,000 Units by mouth in the morning. Active Calcium Citrate-Vitami n D 250-5 MG-MCG tablet Take 1 tablet by mouth in the morning. 06/19/19 19 Active brimonidine (ALPHAGAN) 0.2 % ophthalmic solution 1 drop in the morning and 1 drop at noon and 1 drop in the evening. 08/31/19 25 Active atorvastatin (LIPITOR) 80 MG tablet Take 80 mg by mouth in the morning. 10/23/19 25 Active acetaminophen (TYLENOL) 500 MG tablet Take 500 mg by mouth Active Calcium Carb-Cholecalc iferol (CALCIUM CARBONATE-[place] MIN D3 PO) Take 1 tablet by mouth in the morning. Active amLODIPine (NORVASC) 5 MG tablet Take 1.5 tablets (7.5 mg total) by mouth 1 (one) time each day 45 tablet 5 12/28/19 25 025 Active ketorolac (ACULAR) 0.5 % ophthalmic solution 1 drop in the morning and 1 drop at noon and 1 drop in the evening. 10/05/19 025 Discontinued(Me d List Maintenance) clopidogrel (PLAVIX) 75 MG tablet Take 75 mg by mouth in the morning. 07/03/19 025 amLODIPine (NORVASC) 10 MG tablet Take 10 mg by mouth in the morning. 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 Prolapsed lumbar intervertebral disc 09/15/2016 Essential hypertension 04/18/2015 Chronic kidney disease stage 4 11/27/2013 Overview (12/27/2024): Hx hypertension S/P right nephrectomy 09/2020 for renal carcinoma Hypertensive renal disease 08/13/2010 Overview (12/27/2024): Dr Wyatt Localized osteoarthrosis involving shoulder shagufta on 06/13/2008 Overview (12/27/2024): DJD at glenohumeral joints; R>L. Right is S/P rotator cuff injury Seropositive rheumatoid arthritis 04/26/2005 Overview (12/27/2024): Dx from the past (in her 30's); varying activity, mostly low grade, no DMARD's ever. Neg GAMA but pos CCP Ab and RF Methotrexate started 03/21 Last Assessment & Plan: Continue methotrexate at 5 tab once a week and folic acid 1mg daily Lab in November and January Proteinuria 04/26/2005 Overview (12/27/2024): Present as far back as 1998 Hyperlipidemia 04/26/2005 Encounters Date Type Department Care Team Description 12/27/2024 3:15 PM EDT Office Visit [facility] [address] [phone] Kayden Reynolds MD Stage 3 chronic kidney disease, not otherwise specified (HCC) (Primary Dx); Hypertension; History of nephrectomy; Other proteinuria from Last 3 Months Family History Medical History Relation Comments Prostate cancer Brother Gout Father Breast cancer Mother Alcohol abuse Sister Dementia Neg Hx Relation Status Comments Brother Father Mother Sister Social History Tobacco Use Types Packs/Day Years Used Date Smoking Tobacco: Never Smokeless Tobacco: Never Tobacco Cessation:Counseling Given: Not Answered Comments Unknown Sex and Gender Information Value Date Recorded Sex Assigned at Not on file Legal Sex Female 11:58 AM EDT Gender Identity Not on file Sexual Orientation Not on file Last Filed Vital Signs Vital Sign Reading Time Taken Comments Blood Pressure 95/54 12/27/2024 3:32 PM EDT Pulse 64 12/27/2024 3:32 PM EDT Temperature - - Respiratory Rate - - Oxygen Saturation - - Inhaled Oxygen Concentration - - Weight 64 kg (141 lb) 12/27/2024 3:32 PM EDT Height - - Body Mass Index - - Plan of Treatment Health Maintenance Due Date Last Done Comments Influenza Vaccine (#1) 2024 02/15/2023 Pneumococcal Vaccine: 50+ Years Completed 07/05/2014, 02/16/2013 Hepatitis B Vaccine Aged Out No longe r eligible based on patient's age to complete this topic Procedures Procedure Name Priority Date/Time Associated Diagnosis Comments VITAMIN D 25 HYDROXY Routine 12/28/2024 8:42 AM EDT Stage 3 chronic kidney disease, not otherwise specified (HCC) PTH, INTACT Routine 12/28/2024 8:42 AM EDT Stage 3 chronic kidney disease, not otherwise specified (HCC) URINE ALBUMIN / CREATININE RATIO Routine 12/28/2024 8:42 AM EDT Stage 3 chronic kidney disease, not otherwise specified (HCC) RENAL FUNCTION PANEL Routine 12/28/2024 8:42 AM EDT Stage 3 chronic kidney disease, not otherwise specified (HCC) from Last 3 Months Results * urine albumin / creatinine ratio (12/28/2024 8:42 AM EDT) Creatinine, Urine 152.0 mg/dL [facility] Microalbumin Urine Random 19.9 0.0 - 29.0 mg/L [facility] Microalbumin/Crea tinine Ratio 13 <30 mg/g [facility] Urine Urine specimen obtained by clean catch procedure / Unknown 12/28/2024 8:42 AM EDT 12/28/2024 11:43 AM EDT us Kayden Reynolds MD LAB URINE ORDERABLES Final Resul t [facility]) [facility] [address] [place] [address] * (ABNORMAL) Vit D 25 hydroxy (12/28/2024 8:42 AM EDT) Vitamin D, 25-OH, Total 82.3(H) 30.0 - 80.0 ng/mL [facility] Blood Venous blood / Unknown 12/28/2024 8:42 AM EDT 12/28/2024 11:43 AM EDT us Kayden Reynolds MD LAB BLOOD ORDERABLES Final Resul t Performing Organization Address [facility] Co de Phone Number [facility] [address] [place] [address] * PTH, intact (12/28/2024 8:42 AM EDT) PTH 29.0 18.5 - 88.0 pcg/mL [facility] Blood Venous blood / Unknown 12/28/2024 8:42 AM EDT 12/28/2024 11:43 AM EDT us Kayden Reynolds MD LAB BLOOD ORDERABLES Final Resul t Performing Organization Address [facility] de Phone Number [facility] [address] [place] [address] * (ABNORMAL) Renal funtion panel (12/28/2024 8:42 AM EDT) Sodium 141 133 - 145 mmol/L [facility] Potassium 4.3 3.5 - 5.5 mmol/L [facility] Chloride 105 96 - 110 mmol/L [facility] Bicarbonate (CO2) 29 21 - 32 mmol/L [facility] Anion Gap 7 3 - 11 [facility] Glucose 88 70 - 100 mg/dL [facility] BUN 34(H) 5 - 25 mg/dL [facility] Creatinine Serum 1.71(H) 0.50 - 1.10 mg/dL [facility] eGFR 31(L) >=60 mL/min/1. 73m2 [facility] Comment:Calculation based on the Chronic Kidney Disease Epidemiology Collaboration (CKD-EPI) equation refit without adjustment for race. BUN/Creatinine Ratio 19.9 [facility] Albumin 3.9 3.2 - 5.0 g/dL [facility] Calcium 9.9 8.5 - 10.5 mg/dL [facility] Phosphorus 4.1 2.5 - 4.5 mg/dL [facility] Blood Venous blood / Unknown 12/28/2024 8:42 AM EDT 12/28/2024 11:43 AM EDT Narrative [place] - 12/28/2024 12:17 PM EDT Fasting?->No Kayden Reynolds MD LAB BLOOD ORDERABLES Final Resul t [facility] [address] [place] [address] from Last 3 Months Insurance Medicare [facility] Care Teams Hatchery Manager Relationship Specialty Start Date End Date Quyen López NP [address] [place] [id number] PCP - General Nurse Practitioner 12/27/24
--- OUTSIDE RECORDS SUMMARY | 2024-12-31 14:00 | XMS_ITS | Clinical Summary ---
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 malignancy is seen. A negative mammogram in the presence of a clinically suspicious palpable abnormality does not preclude the possibility of malignancy or alter the indications for biopsy. BI-RADS: Category 2: Benign RECOMMENDATION(S): 1: Routine screening mammogram BILATERAL in 1 year. Dictating Physician: ESTELA ROSE MD Electronically Signed by: ESTELA ROSE MD Dic Date/Time: 11/07/23 1206 Sign date/Time: 11/07/23 1206 Procedure Note Estela Rose MD - 01/25/2024 [facility] Diagnostic Imaging Department [address] [place] [id number] Patient: MINNA RODRIGUEZ /Age/Sex: 1945 - 77 - F Unit#: [id number] Location/Status: SPDIMAM/REG CLI Mnemonic/Ordering Site: [facility] Ordering Physician: KALEB SELLERS NP [facility] Screening Digital - 11/07/23 - 0955 Report Status:Signed EXAM: [facility] Screening Digital EXAM DATE AND TIME: 11/07/2023 9:56 AM HISTORY: Screening. Previous left breast biopsy, pathology benign. Motherhad breast carcinoma. COMPARISON: 11/04/21, 07/15/20, 03/27/19 TECHNIQUE: Bilateral digital breast tomosynthesis was performed in the CCand MLO projections. Computer aided detection with [employer] 3D 3.1was employed. TISSUE DENSITY: b. There [...] 11/07/23 1206 Sign date/Time: 11/07/23 1206 Kaleb Rene TREJO IMG BI PROCEDURES Final Result * DXA [...] 12/27/2017. Unable to compare with 08/11/2020 due to dissimilar scan methods. No statistically significant change in bone mineral density. IMPRESSION: IMPRESSION: Osteopenia by WHO criteria. This patient has a 10% risk of major osteoporotic fracture and a 2.0% risk of hip fracture over the next 10 years. (World Health Organization Fracture Risk Assessment) [facility] Department of Internal Medicine recommends using [...] alternative screening schedule based on zo Dyer., [facility] April 29, 2011 for patients with osteopenia [...] years. (World HealthOrganization Fracture Risk Assessment) The [facility] Department of Internal Medicine recommendsusing National [...] NP IMG DXA PROCEDURES Final Result * Colonoscopy (04/24/2019) [facility] Colonoscopy ABNORMAL, REPEAT IN 5 YEARS Anatomical Region Laterality Modality Other Historical Provider HEALTH MAINTENANCE Final Result * Hepatitis C Screening (02/12/2011) [facility] Hepatitis C Screening NEGATIVE NEGATIVE - POSITIVE Historical Provider HEALTH MAINTENANCE Final Result from Last 3 Months or Most Recently Relevant to Health Maintenance Insurance MEDICARE [facility] [place] [id number] Care Teams Publications Manager Relationship Specialty Start Date End Date Lashawn Honeycutt MD [address] [facility] [place] [id number] PCP - General Internal Medicine 11/01/24
--- OUTSIDE RECORDS SUMMARY | 2024-12-31 14:00 | XMS_ITS ---
Author Name [facility] Organization Unknown Care Team Organization Name Specialty Phone Email Start Date End Da te [facility] Cindy Vasquez Primary Care 03/23/2023 11/28/19 [facility] Steve Ledbetter Primary Care 12/16/20222023 [facility] ATTILA Hernandez Primary Care 08/16/202211/09 [facility] Enoch Alva Primary Care 02/16/20222023
[2025-01-03 13:09] VITALS: BMI 25.7
== END 2024-12-31 12:15 | disposition home or self-care (01) ==
LOC: HO.ENCR 11:18
PROVIDERS: PCP Nurse Practitioner; Visit Provider Dietitian, Registered
DX: N18.4 Chronic kidney disease, stage 4 (severe) (principal)

== ENCOUNTER → 2024-12-31 11:18 | Outpatient (BNVA) | payer MEDICARE, OTHER, SELFPAY | PROVIDERS: PCP Nurse Practitioner; Visit Provider Dietitian, Registered | DX: N18.4 Chronic kidney disease, stage 4 (severe) (principal); Z71.3 Dietary counseling and surveillance | CPT/HCPCS: 97802 ==